=== PATIENT | female | born 1955 | race Two or more races ===

== ENCOUNTER 2019-05-09 19:44 | Inpatient (IN) | payer OTHER ==
[2019-05-09] MEDS ORDERED: Sodium Chloride 0.9% 1,000 ML IV ONE (20:18)
[2019-05-09] MEDS ORDERED: fentaNYL 100 MCG/2 ML SDV IVPUSH ONE ×2 (20:18→21:25)
--- NOTE | 2019-05-09 21:03 | EDM.PDOC ---
ED HPI GENERAL MEDICAL PROBLEM - General Chief Complaint: Skin Complaint Stated Complaint: PT HAS LUMPS ON BACK AND BACK PAIN Time Seen by Provider: 05/09/19 20:03 Source of Information: Reports: Patient History Limitations: Reports: No Limitations - History of Present Illness INITIAL COMMENTS - FREE TEXT/NARRATIVE: HISTORY AND PHYSICAL: History of present illness: Resents with her daughter. The patient and her daughter states that about a week and half ago she went to see her primary provider for a diabetic check and mentioned to him that she had a small lump on her back. It was reddened and firm and just under her bra line. At that time they said there was nothing to do for it but told her to watch it. There was a miscommunication amongst the patient's 3 daughters and none of them really watched the lump. Now today the daughter that had gone with her to her doctor's appointment came home and found that the lump has become a giant mass on her mid back. The mass is red, are and very painful. They had put some kind of a pain patch over part of it and when they pulled that off there was a rash states they thought was a reaction to the adhesive on the patch. She has been having hot and cold flashes and has not felt well at all today. She is a diabetic. Review of systems: As per history of present illness and below otherwise all systems reviewed and negative. Past medical history: As per history of present illness and as reviewed below otherwise noncontributory. Surgical history: As per history of present illness and as reviewed below otherwise noncontributory. Social history: No reported history of drug or alcohol abuse. Family history: As per history of present illness and as reviewed below otherwise noncontributory. Physical exam: HEENT: Atraumatic, normocephalic, pupils reactive, negative for conjunctival pallor or scleral icterus, mucous membranes moist, throat clear, neck supple, nontender, trachea midline. Lungs: Clear to auscultation, breath sounds equal bilaterally, chest nontender. Heart: S1S2, regular, negative for clicks, rubs, or JVD. Abdomen: Soft, nondistended, nontender. Negative for masses or hepatosplenomegaly. Negative for costovertebral tenderness. Pelvis: Stable nontender. Genitourinary: Deferred. Rectal: Deferred. Extremities: Atraumatic, negative for cords or calf pain. Neurovascular unremarkable. Neuro: Awake, alert, oriented. Cranial nerves II through XII unremarkable. Cerebellum unremarkable. Motor and sensory unremarkable throughout. Exam nonfocal. Diagnostics: [] Therapeutics: [] Impression: [] Plan: [] Definitive disposition and diagnosis as appropriate pending reevaluation and review of above. back Pain Score (Numeric/FACES): 10 - Related Data Allergies Allergy/AdvReac Type Severity Reaction Status Date / Time Fish Containing Products Allergy Anaphylactic Verified 05/09/19 19:55 Shock latex Allergy Rash Verified 05/09/19 19:55 Penicillins Allergy Rash Verified 05/09/19 19:55 Home Meds: Home Meds Insulin Aspart [Novolog] 20 unit SQ QAM 04/24/18 [History] Betamethasone Dipropionate 0.05 mg TOP BID PRN 05/09/19 [History] Cyclobenzaprine [Flexeril] 10 mg PO BEDTIME PRN 05/09/19 [History] Insulin Aspart [NovoLOG] 20 units SUBCUT BEDTIME PRN 05/09/19 [History] Lisinopril 5 mg PO DAILY 05/09/19 [History] Nystatin 15 mg TOP TID 05/09/19 [History] traMADol [Ultram] 50 mg PO TID 05/09/19 [History] Past Medical History Cardiovascular History: Reports: Hypertension Respiratory History: Reports: Asthma Genitourinary History: Reports: None 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: Musculoskeletal History: Reports: Arthritis Endocrine/Metabolic History: Reports: Diabetes, Type II Dermatologic History: Reports: Other (See Below) Other Dermatologic History: lump on the back - Infectious Disease History Infectious Disease History: Reports: Chicken Pox - Past Surgical History Cardiovascular Surgical History: Reports: None Respiratory Surgical History: Reports: None Female Surgical History: Reports: Section Endocrine Surgical History: Reports: None Musculoskeletal Surgical History: Reports: None Dermatological Surgical History: Reports: None Social & Family History - Family History Family Medical History: Noncontributory - Tobacco Use Smoking Status *Q: Never Smoker Second Hand Smoke Exposure: No - Caffeine Use Caffeine Use: Reports: None - Recreational Drug Use Recreational Drug Use: No ED ROS GENERAL - Review of Systems Review Of Systems: ROS reveals no pertinent complaints other than HPI. ED EXAM, SKIN/RASH Exam: See Below Exam Limited By: No Limitations General Appearance: Alert, Moderate Distress (Due to pain and inability to sit) Ears: Normal External Exam Nose: Normal Inspection Throat/Mouth: Normal Inspection Head: Atraumatic, Normocephalic Neck: Normal Inspection Respiratory/Chest: No Respiratory Distress, Lungs Clear, Normal Breath Sounds Cardiovascular: Normal Peripheral Pulses, Regular Rate, Rhythm, No Murmur GI/Abdominal: Soft, Non-Tender, No Distention Back Exam: Paraspinal Tenderness Neurological: Alert, Oriented Skin: Warm, Dry, Intact, Normal Color, Other (Under the bra band across the mid back aprox 25 x 10cm firm, erythematous, tender mass with a dry macular rash over the right side that is weeping serosanguinous in some spots. No fluctuance ) Course - Vital Signs Last Recorded V/S: Last Vital Signs Temp 36.4 C 05/09/19 22:00 Pulse 85 05/09/19 22:00 Resp 18 05/09/19 22:00 BP 121/47 L 05/09/19 22:00 Pulse Ox 96 05/09/19 22:00 - Orders/Labs/Meds Orders: Active Orders 24 hr Category Date Time Status CULTURE BLOOD [BC] Stat Lab 05/09/19 20:25 Stop Req CULTURE BLOOD [BC] Stat Lab 05/09/19 20:42 Received Blood Culture x2 Reflex Set [OM.PC] Stat Oth 05/09/19 20:43 Ordered Medication Orders Acetaminophen (Tylenol) 650 mg PO Q4H PRN PRN Reason: Pain Sodium Chloride (Normal Saline) 1,000 mls @ 100 mls/hr IV ASDIRECTED [facility] Last Admin: 05/09/19 22:44 Dose: 100 mls/hr Clindamycin Phosphate (Cleocin In D5w) 50 mls @ 100 mls/hr IV Q8H [facility] Insulin Aspart (Novolog) 0 unit SUBCUT TIDAC [facility]; Protocol Oxycodone HCl (Oxycodone) 5 mg PO Q6H PRN PRN Reason: Pain Last Admin: 05/09/19 22:38 Dose: 5 mg Temazepam (Restoril) 15 mg PO BEDTIME PRN PRN Reason: Sleep Labs: Laboratory Tests 05/09/19 05/09/19 05/09/19 Range/Units 20:25 20:25 20:25 WBC 28.32 H (4.0-11.0) K/uL RBC 4.69 (4.30-5.90) M/uL Hgb 12.9 (12.0-16.0) g/dL Hct 38.8 (36.0-46.0) % MCV 82.7 (80.0-98.0) fL MCH 27.5 (27.0-32.0) pg MCHC 33.2 (31.0-37.0) g/dL RDW Std Deviation 40.4 (28.0-62.0) fl RDW Coeff of Lucho 13 (11.0-15.0) % Plt Count 281 (150-400) K/uL MPV 10.80 (7.40-12.00) fL Add Manual Diff YES Neutrophils % (Manual) 76 (48.0-80.0) % Band Neutrophils % 14 % Lymphocytes % (Manual) 7 L (16.0-40.0) % Monocytes % (Manual) 2 (0.0-15.0) % Eosinophils % (Manual) 1 (0.0-7.0) % Nucleated RBC % 0.0 /100WBC Absolute Seg Neuts 21.5 H (1.4-5.7) Band Neutrophils # 4.0 Lymphocytes # (Manual) 2.0 (0.6-2.4) Monocytes # (Manual) 0.6 (0.0-0.8) Eosinophils # (Manual) 0.3 (0.0-0.7) Nucleated RBCs # 0 K/uL Lactate 1.8 (0.20-2.00) mmol/L Sodium 132 L (136-145) mmol/L Potassium 4.3 (3.5-5.1) mmol/L Chloride 96 L (98-107) mmol/L Carbon Dioxide 24.2 (21.0-32.0) mmol/L BUN 32 H (7.0-18.0) mg/dL Creatinine 1.6 H (0.6-1.0) mg/dL Est Cr Clr Drug Dosing 27.86 mL/min Estimated GFR (MDRD) 32.8 ml/min Glucose 419 H (74-106) mg/dL Calcium 9.8 (8.5-10.1) mg/dL Total Bilirubin 0.8 (0.2-1.0) mg/dL AST 16 (15-37) IU/L ALT 12 L (14-63) IU/L Alkaline Phosphatase 238 H (46-116) U/L Total Protein 7.6 (6.4-8.2) g/dL Albumin 2.2 L (3.4-5.0) g/dL Globulin 5.4 H (2.6-4.0) g/dL Albumin/Globulin Ratio 0.4 L (0.9-1.6) Meds: Medications Generic Name Dose Route Start Last Admin Trade Name Gwyn PRN Reason Stop Dose Admin Acetaminophen 650 mg 05/09/19 22:21 Tylenol PO Q4H PRN Pain Sodium Chloride 1,000 mls @ 100 mls/hr 05/09/19 22:30 05/09/19 22:44 Normal Saline IV 100 mls/hr ASDIRECTED [facility] Administration Clindamycin Phosphate 50 mls @ 100 mls/hr 05/10/19 01:00 Cleocin In D5w IV Q8H [facility] Insulin Aspart 0 unit 05/10/19 07:30 Novolog SUBCUT TIDAC [facility] Protocol Oxycodone HCl 5 mg 05/09/19 22:21 05/09/19 22:38 Oxycodone PO 5 mg Q6H PRN Administration Pain Temazepam 15 mg 05/09/19 22:22 Restoril PO BEDTIME PRN Sleep Discontinued Medications Generic Name Dose Route Start Last Admin Trade Name Gwyn PRN Reason Stop Dose Admin Fentanyl 50 mcg 05/09/19 20:18 05/09/19 20:32 Sublimaze IVPUSH 05/09/19 20:19 50 mcg ONETIME ONE Administration Fentanyl 50 mcg 05/09/19 21:25 05/09/19 21:31 Sublimaze IVPUSH 05/09/19 21:26 50 mcg ONETIME ONE Administration Sodium Chloride 1,000 mls @ 999 mls/hr 05/09/19 20:18 05/09/19 20:32 Normal Saline IV 05/09/19 21:18 999 mls/hr STAT ONE Administration Vancomycin HCl 1.5 gm/ Premix 300 mls @ 300 mls/hr 05/09/19 21:30 IV ASDIRECTED [facility] Vancomycin HCl 1.5 gm/ Sodium 500 mls @ 333.333 mls/hr 05/09/19 22:15 Chloride IV 05/09/19 23:44 ONETIME ONE Vancomycin HCl 1 gm/ 500 mls @ 333.333 mls/hr 05/09/19 22:15 05/09/19 22:50 Vancomycin HCl 500 mg/ Sodium IV 05/09/19 23:44 333.333 mls/hr Chloride ONETIME ONE Administration Clindamycin Phosphate 50 mls @ 100 mls/hr 05/09/19 22:00 05/10/19 00:10 Cleocin In D5w IV Not Given Q8H [facility] Departure - Departure Time of Disposition: 22:00 Disposition: Admitted As Inpatient 68 Clinical Impression: Cellulitis - Discharge Information - My Orders Last 24 Hours: My Active Orders 05/09/19 20:25 CULTURE BLOOD [BC] Stat 05/09/19 20:42 CULTURE BLOOD [BC] Stat 05/09/19 20:43 Blood Culture x2 Reflex Set [OM.PC] Stat - Assessment/Plan Last 24 Hours: My Active Orders 05/09/19 20:25 CULTURE BLOOD [BC] Stat 05/09/19 20:42 CULTURE BLOOD [BC] Stat 05/09/19 20:43 Blood Culture x2 Reflex Set [OM.PC] Stat
[2019-05-09] MEDS ORDERED: Vancomycin 1.5 GM in Sodium Chloride 0.9% 500 ML IV ONE ×2 (21:30→22:15)
[2019-05-09] MEDS ORDERED: VANCOMYCIN/WATER FOR INJ (PEG) 1.5 GM in Premix Bag 1 BAG IV SCH (21:30)
--- NOTE | 2019-05-09 21:42 | CR ---
Indication: Cellulitis Technique: Chest 2 views Comparison: None Findings/Impression: Cardiovascular and mediastinum: Upper limits of normal cardiac size. A mildly ectatic aorta. Lungs and pleural spaces: Lateral left basilar subsegmental atelectasis or scarring. Blunting of the adjacent left costophrenic angle could be related to scarring or volume loss versus small regional fluid, although the posterior costophrenic gutters are clear. Bones and soft tissues: An apparent 1.8 x 1.1 cm ovoid density projecting over the right scapular body, nonspecific and unclear if overlying the patient. Dictated by Augustin Louise MD @ 05/09/2019 9:40:04 PM Dictated by: Augustin Louise MD @ 05/09/2019 21:41:45 (Electronically Signed)
[2019-05-09] MEDS ORDERED: Clindamycin Phosphate in D5W 50 ML IV SCH (22:00)
[2019-05-09] MEDS ORDERED: Vancomycin 1 GM, Vancomycin 500 MG in Sodium Chloride 0.9% 500 ML IV ONE (22:15)
[2019-05-09] MEDS ORDERED: VANCOMYCIN/WATER FOR INJ (PEG) 1.5 GM in Premix Bag 1 BAG IV ONE (22:15)
[2019-05-09] MEDS ORDERED: Temazepam 15 MG Cap PO PRN (22:22)
[2019-05-09] MEDS: oxyCODONE 5 MG Tab PO PRN (22:38)
[2019-05-09] MEDS: Sodium Chloride 0.9% 1,000 ML IV SCH (22:44)
[2019-05-10] MEDS: Clindamycin Phosphate in D5W 50 ML IV SCH ×3 (01:06→17:38)
[2019-05-10] MEDS: oxyCODONE 5 MG Tab PO PRN ×2 (06:10→20:11)
[2019-05-10] MEDS ORDERED: Insulin Aspart 100 Units/ML 3 ML Pen SUBCUT ONE (06:47)
[2019-05-10] MEDS ORDERED: BETAMETHASONE DIPROPIONATE TOP PRN (06:50)
[2019-05-10] MEDS ORDERED: Morphine 2 MG/ML Syringe IVPUSH PRN (06:50)
[2019-05-10] MEDS ORDERED: Cyclobenzaprine 10 MG Tab PO PRN (06:50)
[2019-05-10] MEDS ORDERED: Heparin Sodium 5,000 Units/ML Vial SUBCUT SCH (07:00)
[2019-05-10] MEDS: Insulin Aspart 100 Units/ML 3 ML Pen SUBCUT SCH ×3 (07:14→18:01)
[2019-05-10] MEDS: Linezolid 600 MG in Premix Bag 1 BAG IV SCH ×2 (08:19→19:57)
[2019-05-10 08:28] LABS: HEMOGLOBIN A1C 12.5 % (4.5-6.2)
--- NOTE | 2019-05-10 09:05 | PCM.PREANE ---
Preanesthetic Assessment - Anesthesia/Transfusion/Family Hx Anesthesia History: Prior Anesthesia Without Reaction (c section under neuraxiaql anesthesia x 5, no hx of GA) Family History of Anesthesia Reaction: No Transfusion History: Prior Transfusion Without Reaction - Review of Systems Pulmonary: No Symptoms Cardiovascular: No Symptoms Gastrointestinal: No Symptoms Neurological: No Symptoms - Physical Assessment Vital Signs: Last Vital Signs Temp 98.5 F 05/10/19 08:00 Pulse 91 05/10/19 08:00 Resp 18 05/10/19 08:00 BP 101/68 05/10/19 08:00 Pulse Ox 95 05/10/19 08:00 Height: 5 ft 1 in Weight: 87.18 kg ASA Class: 4 Mental Status: Alert & Oriented x3 Airway Class: Mallampati = 2 Dentition: Reports: Bridge (maxillary central) ROM/Head Extension: Full Lungs: Clear to Auscultation, Normal Respiratory Effort Cardiovascular: Regular Rate, Regular Rhythm - Lab Values: Laboratory Last Values WBC 23.22 K/uL (4.0-11.0) H 05/10/19 05:48 RBC 4.13 M/uL (4.30-5.90) L 05/10/19 05:48 Hgb 11.3 g/dL (12.0-16.0) L 05/10/19 05:48 Hct 34.4 % (36.0-46.0) L 05/10/19 05:48 MCV 83.3 fL (80.0-98.0) 05/10/19 05:48 MCH 27.4 pg (27.0-32.0) 05/10/19 05:48 MCHC 32.8 g/dL (31.0-37.0) 05/10/19 05:48 RDW Std Deviation 41.2 fl (28.0-62.0) 05/10/19 05:48 RDW Coeff of Lucho 14 % (11.0-15.0) 05/10/19 05:48 Plt Count 255 K/uL (150-400) 05/10/19 05:48 MPV 10.70 fL (7.40-12.00) 05/10/19 05:48 Add Manual Diff YES 05/10/19 05:48 Neutrophils % (Manual) 78 % (48.0-80.0) 05/10/19 05:48 Band Neutrophils % 9 % 05/10/19 05:48 Lymphocytes % (Manual) 7 % (16.0-40.0) L 05/10/19 05:48 Monocytes % (Manual) 5 % (0.0-15.0) 05/10/19 05:48 Eosinophils % (Manual) 1 % (0.0-7.0) 05/10/19 05:48 Nucleated RBC % 0.0 /100WBC 05/10/19 05:48 Absolute Seg Neuts 18.1 (1.4-5.7) H 05/10/19 05:48 Band Neutrophils # 2.1 05/10/19 05:48 Lymphocytes # (Manual) 1.6 (0.6-2.4) 05/10/19 05:48 Monocytes # (Manual) 1.2 (0.0-0.8) H 05/10/19 05:48 Eosinophils # (Manual) 0.2 (0.0-0.7) 05/10/19 05:48 Nucleated RBCs # 0 K/uL 05/10/19 05:48 Lactate 1.8 mmol/L (0.20-2.00) 05/09/19 20:25 Sodium 133 mmol/L (136-145) L 05/10/19 05:48 Potassium 4.3 mmol/L (3.5-5.1) 05/10/19 05:48 Chloride 100 mmol/L (98-107) 05/10/19 05:48 Carbon Dioxide 23.7 mmol/L (21.0-32.0) 05/10/19 05:48 BUN 35 mg/dL (7.0-18.0) H 05/10/19 05:48 Creatinine 1.6 mg/dL (0.6-1.0) H 05/10/19 05:48 Est Cr Clr Drug Dosing 27.86 mL/min 05/10/19 05:48 Estimated GFR (MDRD) 32.8 ml/min 05/10/19 05:48 Glucose 422 mg/dL (74-106) H 05/10/19 05:48 POC Glucose 428 mg/dL (60-110) H 05/10/19 06:29 Hemoglobin A1c 12.5 % (4.5-6.2) H 05/10/19 05:48 Calcium 8.9 mg/dL (8.5-10.1) 05/10/19 05:48 Total Bilirubin 0.8 mg/dL (0.2-1.0) 05/09/19 20:25 AST 16 IU/L (15-37) 05/09/19 20:25 ALT 12 IU/L (14-63) L 05/09/19 20:25 Alkaline Phosphatase 238 U/L (46-116) H 05/09/19 20:25 Total Protein 7.6 g/dL (6.4-8.2) 05/09/19 20:25 Albumin 2.2 g/dL (3.4-5.0) L 05/09/19 20:25 Globulin 5.4 g/dL (2.6-4.0) H 05/09/19 20:25 Albumin/Globulin Ratio 0.4 (0.9-1.6) L 05/09/19 20:25 - Allergies Allergies/Adverse Reactions: Allergies Allergy/AdvReac Type Severity Reaction Status Date / Time Fish Containing Products Allergy Anaphylactic Verified 05/10/19 07:28 Shock latex Allergy Rash Verified 05/10/19 07:28 Penicillins Allergy Rash Verified 05/10/19 07:28 - Blood Blood Available: No - Anesthesia Plan Pre-Op Medication Ordered: None - Acknowledgements Anesthesia Type Planned: General Anesthesia Pt an Appropriate Candidate for the Planned Anesthesia: Yes Alternatives and Risks of Anesthesia Discussed w Pt/Guardian: Yes Pt/Guardian Understands and Agrees with Anesthesia Plan: Yes Additional Comments: PMH: htn, hx of CVA with R hemiparesis- now resolved, DM2 on insulin- usually sugars run high- sugar at home prior to coming to ED was in the 500's. Glucose in the 400s all night on the floor. PLAN: needs pre-op control of blood sugar. request hospitalist consult and iv infusion of insulin for more rapid controll of blood sugars. 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: Musculoskeletal History: Reports: Arthritis Neurological History: Reports: None Psychiatric History: Reports: None Endocrine/Metabolic History: Reports: Diabetes, Type II Hematologic History: Reports: None Immunologic History: Reports: None Dermatologic History: Reports: Other (See Below) Other Dermatologic History: lump on the back - Infectious Disease History Infectious Disease History: Reports: Chicken Pox - Past Surgical History Cardiovascular Surgical History: Reports: None Respiratory Surgical History: Reports: None Female Surgical History: Reports: Section Endocrine Surgical History: Reports: None Musculoskeletal Surgical History: Reports: None Dermatological Surgical History: Reports: None - SUBSTANCE USE Smoking Status *Q: Never Smoker Second Hand Smoke Exposure: No Recreational Drug Use History: No - HOME MEDS Home Medications: Home Meds Insulin Aspart [Novolog] 20 unit SQ QAM 04/24/18 [History] Betamethasone Dipropionate 0.05 mg TOP BID PRN 05/09/19 [History] Cyclobenzaprine [Flexeril] 10 mg PO BEDTIME PRN 05/09/19 [History] Insulin Aspart [NovoLOG] 20 units SUBCUT BEDTIME PRN 05/09/19 [History] Lisinopril 5 mg PO DAILY 05/09/19 [History] Nystatin 15 mg TOP TID 05/09/19 [History] traMADol [Ultram] 50 mg PO TID 05/09/19 [History] - CURRENT (IN HOUSE) MEDS Current Meds: Current Medications Acetaminophen (Tylenol) 650 mg PO Q4H PRN PRN Reason: Pain Cyclobenzaprine HCl (Flexeril) 10 mg PO BEDTIME PRN PRN Reason: Spasms Sodium Chloride (Normal Saline) 1,000 mls @ 125 mls/hr IV ASDIRECTED [facility] Last Admin: 05/09/19 22:44 Dose: 100 mls/hr Clindamycin Phosphate (Cleocin In D5w) 50 mls @ 100 mls/hr IV Q8H [facility] Last Admin: 05/10/19 01:06 Dose: 100 mls/hr Linezolid 600 mg/ Premix 300 mls @ 300 mls/hr IV Q12H [facility] Last Admin: 05/10/19 08:19 Dose: 300 mls/hr Insulin Human Regular 100 unit (/ Sodium Chloride) 100 mls @ 8 mls/hr IV TITRATE [facility]; Protocol Insulin Aspart (Novolog) 0 unit SUBCUT TIDAC [facility]; Protocol Last Admin: 05/10/19 07:14 Dose: Not Given Lisinopril (Prinivil) 5 mg PO DAILY [facility] Morphine Sulfate (Morphine) 2 mg IVPUSH Q2H PRN PRN Reason: Pain (severe 7-10) Stop: 05/11/19 06:51 Nystatin (Nystop) 0 gm TOP TID [facility] Ondansetron HCl (Zofran Odt) 4 mg PO Q4H PRN PRN Reason: nausea, able to take PO Oxycodone HCl (Oxycodone) 5 mg PO Q6H PRN PRN Reason: Pain Last Admin: 05/10/19 06:10 Dose: 5 mg (Betamethasone (Dipropionate)) 0 each TOP BID PRN PRN Reason: Rash Temazepam (Restoril) 15 mg PO BEDTIME PRN PRN Reason: Sleep Vancomycin HCl (Pharmacy To Dose - Vancomycin) 1 dose .XX ASDIRECTED [facility] Discontinued Medications Fentanyl (Sublimaze) 50 mcg IVPUSH ONETIME ONE Stop: 05/09/19 20:19 Last Admin: 05/09/19 20:32 Dose: 50 mcg Fentanyl (Sublimaze) 50 mcg IVPUSH ONETIME ONE Stop: 05/09/19 21:26 Last Admin: 05/09/19 21:31 Dose: 50 mcg Heparin Sodium (Porcine) (Heparin Sodium) 5,000 units SUBCUT Q8H [facility] Last Admin: 05/10/19 08:00 Dose: Not Given Sodium Chloride (Normal Saline) 1,000 mls @ 999 mls/hr IV STAT ONE Stop: 05/09/19 21:18 Last Admin: 05/09/19 20:32 Dose: 999 mls/hr Vancomycin HCl 1.5 gm/ Premix 300 mls @ 300 mls/hr IV ASDIRECTED [facility] Vancomycin HCl 1.5 gm/ Sodium (Chloride) 500 mls @ 333.333 mls/hr IV ONETIME ONE Stop: 05/09/19 23:44 Vancomycin HCl 1 gm/Vancomycin HCl 500 mg/ Sodium Chloride 500 mls @ 333.333 mls/hr IV ONETIME ONE Stop: 05/09/19 23:44 Last Admin: 05/09/19 22:50 Dose: 333.333 mls/hr Clindamycin Phosphate (Cleocin In D5w) 50 mls @ 100 mls/hr IV Q8H [facility] Last Admin: 05/10/19 00:10 Dose: Not Given Vancomycin HCl 1.5 gm/ Premix 300 mls @ 200 mls/hr IV Q24H [facility] Insulin Aspart (Novolog) 15 unit SUBCUT ONETIME ONE Stop: 05/10/19 06:48 Last Admin: 05/10/19 07:12 Dose: 15 units
[2019-05-10] MEDS: Sodium Chloride 0.9% 1,000 ML IV SCH ×4 (09:18→19:10)
--- NOTE | 2019-05-10 09:33 | PCM.SN ---
- Free Text/Narrative Note: pt seen, chart reviewed; back abscess, glucose is 420; once glucose more in control, will take pt for i/d of back abscess; [id number]
--- NOTE | 2019-05-10 12:03 | CONS ---
DATE OF CONSULTATION: DATE OF : 1955 PRIMARY CARE PHYSICIAN: JESSIE FORTE REASON FOR CONSULTATION: Consult from Dr. Teo Perez. Concerning question is back abscess. HISTORY OF PRESENT ILLNESS: The patient is a 63-year-old lady. Morbid obesity, BMI of 36, weighing 192 pounds. Seen in emergency room for complaint of back infection. The patient remarked that it is being going on for 2 weeks and started as a small bump and lately it has been draining some infection by self or ruptured. PAST MEDICAL HISTORY: Significant for diabetes, CVA, morbid obesity, and hypertension. PAST SURGICAL HISTORY: x7. HOME MEDICATIONS: Please refer to nursing for details. ALLERGIES: Please refer to nursing for details. FAMILY HISTORY: Noncontributory. REVIEW OF SYSTEMS: Same as history of present illness. PHYSICAL EXAMINATION: GENERAL: Morbidly obese lady lying in bed with difficulty even to turn to side, but managed to do it. SKIN: It looked like on both of the scapula angle on the back has elevation, at least 10 to 12 cm. There is no erythema, but with expressible pus on the right side and some eschar of with elevation. DIAGNOSTIC STUDIES: There is no CAT scan done in the last several days. LABORATORY DATA: Upon consultation, white count is 23, H and H are 11 and 34, platelets are 255. Lactate is 1.8. Sodium is 133, potassium is 4.3, BUN is 35, creatinine is 1.6, glucose 422 at 5 o'clock and 388 at 9 o'clock. A1c is 12.5. Alkaline phosphatase is 238, TBili is 0.8, albumin is 2.2. IMPRESSION: Large back abscess and blood glucose is poorly controlled into the 500 at home and 400 over here. The patient would benefit to have a tiny incision and drainage of the pus at the back, but per Anesthesiology recommendation, glucose to be much better controlled and recommended to start insulin drip and proceed as per plan. Plan has been discussed with the hospital team. ROBERT / ANA /[id number] ALAN
[2019-05-10] MEDS: Lisinopril 5 MG Tab PO SCH (12:06)
[2019-05-10] MEDS ORDERED: fentaNYL 250 MCG/5 ML SDV ONE (12:27)
[2019-05-10] MEDS ORDERED: Midazolam 1 MG/ML 2 ML SDV ONE (12:27)
[2019-05-10] MEDS ORDERED: Sugammadex Sodium 200 MG/2 ML VIAL ONE (13:26)
[2019-05-10] MEDS ORDERED: Bupivacaine 25%/EPINEPHrine/PF 30 ML ONE (13:27)
[2019-05-10] MEDS ORDERED: Ondansetron 4 MG/2 ML SDV ONE (13:30)
--- NOTE | 2019-05-10 14:19 | PCM.OPNOTE ---
- General Post-Op/Procedure Note Date of Surgery/Procedure: 05/10/19 Operative Procedure(s): i/d and bx of Back abscess Findings: large amt of necrotic purulent collected in two cavity around research clerk angle; L more than R, cavity are connected; currently packing; [id number] Pre Op Diagnosis: back abscess Post-Op Diagnosis: Same Anesthesia Technique: General ET Tube Primary Surgeon: Mauro Salmon Pathology: sent Complications: None Condition: Fair Free Text/Narrative:: Intake & Output 05/09/19 05/10/19 05/10/19 22:59 06:59 14:59 Intake Total 1050 300 Output Total 100 Balance 950 300
[2019-05-10] MEDS ORDERED: Diltiazem 25 MG/5 ML SDV IVPUSH ONE ×2 (14:33→14:46)
--- NOTE | 2019-05-10 14:35 | PCM.SN ---
- Free Text/Narrative Note: large amt of purulent abscess under B scapular angle; currently wound packed; wound would need to be packing drsg change everyday, using NS, kurlex 4 in, only one piece drsg per wound. continue iv abx as you are doing; will follow pt w you
--- NOTE | 2019-05-10 15:26 | PCM.POSTAN ---
POST ANESTHESIA ASSESSMENT - MENTAL STATUS Mental Status: Confused - VITAL SIGNS Vital Signs: Last Vital Signs Temp 98.6 F 05/10/19 14:07 Pulse 85 05/10/19 15:17 Resp 24 H 05/10/19 15:17 BP 87/46 L 05/10/19 15:17 Pulse Ox 97 05/10/19 15:17 - RESPIRATORY Respiratory Status: O2 Saturation Stable, Supplemental Oxygen, Elevated Respiratory Rate - CARDIOVASCULAR CV Status: Other (afib) - GASTROINTESTINAL GI Status: No Symptoms - POST OP HYDRATION Hydration Status: Adequate & Stable, Other (little urine out 100 ml. with her hyperglycemia I would expect more. Prob relative hypovolemia) - OBSERVATIONS Free Text/Narrative:: flipped from NSR into afib with rate of 130 shortly after arrival in PACU. Little response to cardizem 20+ 20 mg. now pseudoregularization without P waves. rate from 80 to 130. Had one to 2 episodes of asystole lasting 3-4 seconds. Trans cut pacing wires on. labs sent: lytes, calcium. mgnesium, abg, t3,t4,tsh,and troponin. Have ICU bed ready. Hospitalist has seen pt in PACU prior to transport to ICU.
--- NOTE | 2019-05-10 16:30 | OR ---
SURGEON: Mauro Salmon MD DATE OF PROCEDURE: 05/10/2019 PREOPERATIVE DIAGNOSIS: Back abscess. POSTOPERATIVE DIAGNOSIS: Back abscess. PROCEDURE PERFORMED: Incision and drainage and exploration. PRIMARY SURGEON: Mauro Salmon MD. COMPLICATIONS: None. FINDINGS: A large cavity of abscess contained on bilateral side of the back. DESCRIPTION OF PROCEDURE: The patient was taken to the operating room, placed in a supine position. Upon induction of general endotracheal anesthesia, the patient was repositioned in the prone position. The back was prepped and draped in a sterile fashion, and after assessment of appropriate landmark, there was an elevation with erythema on the left scapula angle and there was a skin infection with draining pus on the right scapula and both sides erythematous. The left side probably measured about 15 x 10. The right side measured about 12 x 10. The left side had skin intact. The right side with some skin infection and draining pus. Local anesthetic was infiltrated with lidocaine 1% and epi, and after that using a skin scalpel, a transverse incision was made on the right side and which resulted in a rushed out of necrosis and foul smelling . Using the surgeon's finger to break up the loculation, a continued draining pus from the hole that is tunneled to the left side of the elevation. In spite of that, using a skin knife, the left side was also made an incision and found out more necrosis and pus under the left incision and again the 2 cavities were tunneled and connected. This was then followed with copious irrigation until no more purulent material and also followed with a blunt dissection using surgeon's fingers on the left cavity. At the end, the left cavity measured a skin incision with 9 for length and 3 cm for depth and the tunnel is like a tunica-biloxi, 14 x 14 cm, that is the left one. Then the right one, the skin incision was 8 cm and the depth was 2 cm and the tunnel itself is 12 x 8 cm. The wound was carefully packed and with Kerlix, only 1 piece of packing per cavity. Otherwise, dressing would lose in the cavity and good hemostasis achieved by just compression. There is not much of a bleeding and the skin infection also biopsied and sent for pathology. When it was finished, it was bone dry, and I believe appropriate dressing, the patient was then repositioned in the supine position and transferred to recovery room in hemodynamically stable condition. The patient tolerated the procedure well. There were no intraoperative complications, and Dr. Salmon was present through the whole procedure. ROBERT / ANA /[id number] MTDD
--- NOTE | 2019-05-10 17:08 | PCM.SN ---
- Free Text/Narrative Note: Physician was called and evaluated at approximately 1515,the patient in PACU post surgery due to mental confusion as well as rapid heart rate and atrial fibrillation. The patient had been given Cardizem. The patient was in A. fib with RVR with a heart rate of around 120-130 on monitor. The patient had improved significantly and a few moments during evaluation. The patient was transferred to the ICU for further monitoring for the evening. Likely secondary to the patient's large abscess and postsurgical state. The patient also had been ordered to have 2 L of normal saline as a bolus as it had been reported that she had not having significant urine output for the morning. The patient will be reevaluated in the morning.
--- NOTE | 2019-05-10 17:24 | PN ---
[facility] Physician - Brief Progress [id number]/14/2019 17:09[facility] Gabriel Contreras, [place] - MWN (ALMN) - MWN GALINA OLSONDate of Service 05/10/2019 17:09HPI/Events o f Note eICU Admission NoteGalina Zuniga is a 63 year old male admitted to the intensive care unit for management of Past medical history significant for diabetes, essential hypertension and a reported di agnosis of asthma. She was admitted today after presenting to the emergency department for celluliti s and abscess of the back. Laboratory studies on arrival revealed patient to have leukocytosis, and unremarkable blood gas, elevated creatinine, hyperglycemia, with a mildly elevated anion gap. Ketone s studies were noted to be negative.She was taken to the OR for drainage, and in the PACU she was not ed to have an episode of atrial fibrillation with RVR. Per anesthesia note Cardizem did not have sig nificant effect, and patient was noted to have a few episodes of asystole lasting 3 to 4 seconds. Sh lukas was noted to have significant hyperglycemia, and as such was admitted to the intensive care unit fo r insulin drip following procedure.On evaluation by camera, patient is sleeping. She is saturating w ell on nasal cannula per vitals monitor, and otherwise does not demonstrate acute hemodynamic instabi lity.eICU Recommendations:Atrial fibrillationTachy-vale arrhythmia, potentially related to metabolic abnormality given hypokalemiaxContinue with telemetry monitoringxCan consider cardiology consult for comment on etiology of atrial fibrillationxGiven recent surgery, will defer to the surgical service regarding initiation of anticoagulation (CHADSVasc score of 3)xConsider echocardiogram to rule out un derlying valvular abnormalityxRecommend aggressive electrolyte replacement: Recommend maintaining pot assium greater than 4 and magnesium greater than 2Cellulitis and abscess of the back:xDefer antibioti cs to surgical and primary service, however we are available to assist if desiredDiabetes mellitus wi th hyperglycemiaxWe will defer management of glucose to primary service. We are available to assist if desiredElevated anion gap, negative ketone studiesxConsider lactic acid to complete work-upAcute k idney injury, suspect secondary to prerenal azotemiaxUrine sodium, creatinine, urea for calculation o f FENa and FEUrxStrict I's and O'sElevated alkaline phosphatase, of uncertain significancexCan consid er hepatobiliary imaging such as liver ultrasoundThank you for allowing us to participate in care of this patientInterventions Major-Arrhythmia - evaluation and management, Hyperglycemia - active titrat ion of insulin therapy, Infection - evaluation and management
[2019-05-10] MEDS: Nystatin Topical Powder 15 GM Bottle TOP SCH ×2 (17:33→21:06)
[2019-05-10] MEDS ORDERED: VANCOMYCIN/WATER FOR INJ (PEG) 1.5 GM in Premix Bag 1 BAG IV SCH (21:00)
[2019-05-10] MEDS ORDERED: Sodium Chloride 0.9% 1,000 ML IV ONE (23:04)
--- NOTE | 2019-05-10 23:18 | PN ---
[facility] Physician - Brief Progress [id number]/14/2019 23:12[facility] Gabriel berg, LANCE - NADINE [facility] - GALINA DENISEDate of Service 05/10/2019 23:12HPI/Events o f Note Hypotension SBP less than 90UO low plan:NS 1 L onceInterventions Major-Hypotension - evaluati on and management, Infection - evaluation and management
[2019-05-11] MEDS: Clindamycin Phosphate in D5W 50 ML IV SCH ×3 (00:12→16:33)
[2019-05-11] MEDS: oxyCODONE 5 MG Tab PO PRN ×3 (00:30→23:32)
--- NOTE | 2019-05-11 01:19 | PN ---
[facility] Physician - Brief Progress [id number]/15/2019 00:38[facility] [place], [place] - [place] ([place]) - GALINA DENISEDate of Service 05/11/2019 00:38HPI/Events o f Note complains of pain over the surgical siteon oxycodone 5 mg every6 hours prnplan:increased oxyco done every 4 hours prn for mild painavoid morphine nowInterventions Intermediate-Pain - evaluation an d management
[2019-05-11] MEDS: Ondansetron 4 MG Tab.DIS PO PRN (03:17)
[2019-05-11] MEDS ORDERED: Insulin Regular, Human 100 Units/ML 10 ML Vial SUBCUT ONE (03:25)
--- NOTE | 2019-05-11 03:29 | PN ---
[facility] Physician - Brief Progress [id number]/15/2019 03:26[facility] [place], [place] - NADINE ([place]) - GALINA DENISEDate of Service 05/11/2019 03:26HPI/Events o f Note BS 268mg/dlPLAN:Novolog R 5 units SQ onceInterventions Major-Hyperglycemia - active titration of insulin therapy
[2019-05-11] MEDS: Sodium Chloride 0.9% 1,000 ML IV SCH ×3 (05:23→23:33)
[2019-05-11] MEDS: Nystatin Topical Powder 15 GM Bottle TOP SCH ×4 (06:43→21:56)
--- NOTE | 2019-05-11 07:01 | PCM.PN ---
- General Info Date of Service: 05/11/19 Admission Dx/Problem (Free Text): Admission Diagnosis/Problem Admission Diagnosis/Problem Cellulitis, back, poorly controlled diabetes mellitus type 2 Subjective Update: The patient is a 63-year-old lady who had been admitted to acute hospitalization on May 10, 2019 secondary to large area of cellulitis on her back. Yesterday, after consultation with the surgeon the patient went to surgery with I&D and packing of her cellulitis. The patient post recovery was noted to have what appeared to be atrial fibrillation with RVR and heart rate in the 130s. The patient had been started on Cardizem in recovery. The patient' s heart rate had improved. The patient was also noted in normal sinus rhythm. Because of this postrecovery episode the patient was placed in intensive care unit for monitoring with regards to her blood sugars as well as her mental status. The patient had also been placed back on her subcutaneous insulin. Today the patient is awake and alert. The patient is having some pain in her back at surgery site. She does feel better. The patient has been tolerating her diabetic diet. Functional Status: Reports: Pain Controlled - Review of Systems General: Reports: No Symptoms HEENT: Reports: No Symptoms Pulmonary: Reports: No Symptoms Cardiovascular: Reports: No Symptoms Gastrointestinal: Reports: No Symptoms Genitourinary: Reports: No Symptoms Musculoskeletal: Reports: Back Pain Skin: Reports: Rash Neurological: Reports: No Symptoms Psychiatric: Reports: No Symptoms - Patient Data Vitals - Most Recent: Last Vital Signs Temp 36.7 C 05/11/19 06:00 Pulse 64 05/10/19 19:15 Resp 15 05/11/19 06:00 BP 102/66 05/11/19 06:00 Pulse Ox 97 05/11/19 06:00 Weight - Most Recent: 93.9 kg I&O - Last 24 Hours: Intake & Output 05/10/19 05/11/19 05/11/19 22:59 06:59 14:59 Intake Total 886 2000 Output Total 150 Balance 736 2000 Lab Results Last 24 Hours: Laboratory Results - last 24 hr 05/10/19 05/10/19 05/10/19 Range/Units 05:48 09:15 10:03 WBC (4.0-11.0) K/uL RBC (4.30-5.90) M/uL Hgb (12.0-16.0) g/dL Hct (36.0-46.0) % MCV (80.0-98.0) fL MCH (27.0-32.0) pg MCHC (31.0-37.0) g/dL RDW Std Deviation (28.0-62.0) fl RDW Coeff of Lucho (11.0-15.0) % Plt Count (150-400) K/uL MPV (7.40-12.00) fL Neut % (Auto) (48.0-80.0) % Lymph % (Auto) (16.0-40.0) % Greenlee % (Auto) (0.0-15.0) % Eos % (Auto) (0.0-7.0) % Baso % (Auto) (0.0-1.5) % Neut # (Auto) (1.4-5.7) K/uL Lymph # (Auto) (0.6-2.4) K/uL Greenlee # (Auto) (0.0-0.8) K/uL Eos # (Auto) (0.0-0.7) K/uL Baso # (Auto) (0.0-0.1) K/uL Nucleated RBC % /100WBC Nucleated RBCs # K/uL ABG pH (7.35-7.45) ABG pCO2 (35-45) mmHG ABG pO2 (75-100) mmHG ABG HCO3 (22-26) mEq/L ABG Total CO2 ABG Base Excess (-2.0-2.0) Sodium (136-145) mmol/L Potassium (3.5-5.1) mmol/L Chloride (98-107) mmol/L Carbon Dioxide (21.0-32.0) mmol/L Anion Gap BUN (7.0-18.0) mg/dL Creatinine (0.6-1.0) mg/dL Est Cr Clr Drug Dosing mL/min Estimated GFR (MDRD) ml/min Glucose (74-106) mg/dL POC Glucose 388 H 409 H (60-110) mg/dL Hemoglobin A1c 12.5 H (4.5-6.2) % Calcium (8.5-10.1) mg/dL Magnesium (1.8-2.4) mg/dL Total Bilirubin (0.2-1.0) mg/dL AST (15-37) IU/L ALT (14-63) IU/L Alkaline Phosphatase (46-116) U/L Troponin I (0.000-0.056) ng/mL Total Protein (6.4-8.2) g/dL Albumin (3.4-5.0) g/dL Globulin (2.6-4.0) g/dL Albumin/Globulin Ratio (0.9-1.6) Free T4 (0.76-1.46) ng/dL Free T3 (2.18-3.98) pg/mL TSH 3rd Generation (0.36-3.74) uIU/mL Urine Ketones Ketones (NEG) 05/10/19 05/10/19 05/10/19 Range/Units 10:30 10:35 11:06 WBC (4.0-11.0) K/uL RBC (4.30-5.90) M/uL Hgb (12.0-16.0) g/dL Hct (36.0-46.0) % MCV (80.0-98.0) fL MCH (27.0-32.0) pg MCHC (31.0-37.0) g/dL RDW Std Deviation (28.0-62.0) fl RDW Coeff of Lucho (11.0-15.0) % Plt Count (150-400) K/uL MPV (7.40-12.00) fL Neut % (Auto) (48.0-80.0) % Lymph % (Auto) (16.0-40.0) % Greenlee % (Auto) (0.0-15.0) % Eos % (Auto) (0.0-7.0) % Baso % (Auto) (0.0-1.5) % Neut # (Auto) (1.4-5.7) K/uL Lymph # (Auto) (0.6-2.4) K/uL Greenlee # (Auto) (0.0-0.8) K/uL Eos # (Auto) (0.0-0.7) K/uL Baso # (Auto) (0.0-0.1) K/uL Nucleated RBC % /100WBC Nucleated RBCs # K/uL ABG pH (7.35-7.45) ABG pCO2 (35-45) mmHG ABG pO2 (75-100) mmHG ABG HCO3 (22-26) mEq/L ABG Total CO2 ABG Base Excess (-2.0-2.0) Sodium (136-145) mmol/L Potassium (3.5-5.1) mmol/L Chloride (98-107) mmol/L Carbon Dioxide (21.0-32.0) mmol/L Anion Gap BUN (7.0-18.0) mg/dL Creatinine (0.6-1.0) mg/dL Est Cr Clr Drug Dosing mL/min Estimated GFR (MDRD) ml/min Glucose (74-106) mg/dL POC Glucose 390 H (60-110) mg/dL Hemoglobin A1c (4.5-6.2) % Calcium (8.5-10.1) mg/dL Magnesium (1.8-2.4) mg/dL Total Bilirubin (0.2-1.0) mg/dL AST (15-37) IU/L ALT (14-63) IU/L Alkaline Phosphatase (46-116) U/L Troponin I (0.000-0.056) ng/mL Total Protein (6.4-8.2) g/dL Albumin (3.4-5.0) g/dL Globulin (2.6-4.0) g/dL Albumin/Globulin Ratio (0.9-1.6) Free T4 (0.76-1.46) ng/dL Free T3 (2.18-3.98) pg/mL TSH 3rd Generation (0.36-3.74) uIU/mL Urine Ketones NEGATIVE Ketones NEGATIVE (NEG) 05/10/19 05/10/19 05/10/19 Range/Units 11:55 13:12 14:14 WBC (4.0-11.0) K/uL RBC (4.30-5.90) M/uL Hgb (12.0-16.0) g/dL Hct (36.0-46.0) % MCV (80.0-98.0) fL MCH (27.0-32.0) pg MCHC (31.0-37.0) g/dL RDW Std Deviation (28.0-62.0) fl RDW Coeff of Lucho (11.0-15.0) % Plt Count (150-400) K/uL MPV (7.40-12.00) fL Neut % (Auto) (48.0-80.0) % Lymph % (Auto) (16.0-40.0) % Greenlee % (Auto) (0.0-15.0) % Eos % (Auto) (0.0-7.0) % Baso % (Auto) (0.0-1.5) % Neut # (Auto) (1.4-5.7) K/uL Lymph # (Auto) (0.6-2.4) K/uL Greenlee # (Auto) (0.0-0.8) K/uL Eos # (Auto) (0.0-0.7) K/uL Baso # (Auto) (0.0-0.1) K/uL Nucleated RBC % /100WBC Nucleated RBCs # K/uL ABG pH (7.35-7.45) ABG pCO2 (35-45) mmHG ABG pO2 (75-100) mmHG ABG HCO3 (22-26) mEq/L ABG Total CO2 ABG Base Excess (-2.0-2.0) Sodium (136-145) mmol/L Potassium (3.5-5.1) mmol/L Chloride (98-107) mmol/L Carbon Dioxide (21.0-32.0) mmol/L Anion Gap BUN (7.0-18.0) mg/dL Creatinine (0.6-1.0) mg/dL Est Cr Clr Drug Dosing mL/min Estimated GFR (MDRD) ml/min Glucose (74-106) mg/dL POC Glucose 306 H 299 H 294 H (60-110) mg/dL Hemoglobin A1c (4.5-6.2) % Calcium (8.5-10.1) mg/dL Magnesium (1.8-2.4) mg/dL Total Bilirubin (0.2-1.0) mg/dL AST (15-37) IU/L ALT (14-63) IU/L Alkaline Phosphatase (46-116) U/L Troponin I (0.000-0.056) ng/mL Total Protein (6.4-8.2) g/dL Albumin (3.4-5.0) g/dL Globulin (2.6-4.0) g/dL Albumin/Globulin Ratio (0.9-1.6) Free T4 (0.76-1.46) ng/dL Free T3 (2.18-3.98) pg/mL TSH 3rd Generation (0.36-3.74) uIU/mL Urine Ketones Ketones (NEG) 05/10/19 05/10/19 05/10/19 Range/Units 15:05 15:05 15:17 WBC (4.0-11.0) K/uL RBC (4.30-5.90) M/uL Hgb (12.0-16.0) g/dL Hct (36.0-46.0) % MCV (80.0-98.0) fL MCH (27.0-32.0) pg MCHC (31.0-37.0) g/dL RDW Std Deviation (28.0-62.0) fl RDW Coeff of Lucho (11.0-15.0) % Plt Count (150-400) K/uL MPV (7.40-12.00) fL Neut % (Auto) (48.0-80.0) % Lymph % (Auto) (16.0-40.0) % Greenlee % (Auto) (0.0-15.0) % Eos % (Auto) (0.0-7.0) % Baso % (Auto) (0.0-1.5) % Neut # (Auto) (1.4-5.7) K/uL Lymph # (Auto) (0.6-2.4) K/uL Greenlee # (Auto) (0.0-0.8) K/uL Eos # (Auto) (0.0-0.7) K/uL Baso # (Auto) (0.0-0.1) K/uL Nucleated RBC % /100WBC Nucleated RBCs # K/uL ABG pH (7.35-7.45) ABG pCO2 (35-45) mmHG ABG pO2 (75-100) mmHG ABG HCO3 (22-26) mEq/L ABG Total CO2 ABG Base Excess (-2.0-2.0) Sodium 136 (136-145) mmol/L Potassium 3.3 L (3.5-5.1) mmol/L Chloride 102 (98-107) mmol/L Carbon Dioxide 22.9 (21.0-32.0) mmol/L Anion Gap 14.4 BUN (7.0-18.0) mg/dL Creatinine (0.6-1.0) mg/dL Est Cr Clr Drug Dosing mL/min Estimated GFR (MDRD) ml/min Glucose (74-106) mg/dL POC Glucose 229 H (60-110) mg/dL Hemoglobin A1c (4.5-6.2) % Calcium 8.9 (8.5-10.1) mg/dL Magnesium 1.9 (1.8-2.4) mg/dL Total Bilirubin (0.2-1.0) mg/dL AST (15-37) IU/L ALT (14-63) IU/L Alkaline Phosphatase (46-116) U/L Troponin I < 0.050 (0.000-0.056) ng/mL Total Protein (6.4-8.2) g/dL Albumin (3.4-5.0) g/dL Globulin (2.6-4.0) g/dL Albumin/Globulin Ratio (0.9-1.6) Free T4 1.94 H (0.76-1.46) ng/dL Free T3 1.56 L (2.18-3.98) pg/mL TSH 3rd Generation 1.23 (0.36-3.74) uIU/mL Urine Ketones Ketones (NEG) 05/10/19 05/10/19 05/10/19 Range/Units 15:54 16:20 17:21 WBC (4.0-11.0) K/uL RBC (4.30-5.90) M/uL Hgb (12.0-16.0) g/dL Hct (36.0-46.0) % MCV (80.0-98.0) fL MCH (27.0-32.0) pg MCHC (31.0-37.0) g/dL RDW Std Deviation (28.0-62.0) fl RDW Coeff of Lucho (11.0-15.0) % Plt Count (150-400) K/uL MPV (7.40-12.00) fL Neut % (Auto) (48.0-80.0) % Lymph % (Auto) (16.0-40.0) % Greenlee % (Auto) (0.0-15.0) % Eos % (Auto) (0.0-7.0) % Baso % (Auto) (0.0-1.5) % Neut # (Auto) (1.4-5.7) K/uL Lymph # (Auto) (0.6-2.4) K/uL Greenlee # (Auto) (0.0-0.8) K/uL Eos # (Auto) (0.0-0.7) K/uL Baso # (Auto) (0.0-0.1) K/uL Nucleated RBC % /100WBC Nucleated RBCs # K/uL ABG pH 7.399 (7.35-7.45) ABG pCO2 35 (35-45) mmHG ABG pO2 75 (75-100) mmHG ABG HCO3 22 (22-26) mEq/L ABG Total CO2 19.8 ABG Base Excess -2.7 L (-2.0-2.0) Sodium (136-145) mmol/L Potassium (3.5-5.1) mmol/L Chloride (98-107) mmol/L Carbon Dioxide (21.0-32.0) mmol/L Anion Gap BUN (7.0-18.0) mg/dL Creatinine (0.6-1.0) mg/dL Est Cr Clr Drug Dosing mL/min Estimated GFR (MDRD) ml/min Glucose (74-106) mg/dL POC Glucose 199 H 137 H (60-110) mg/dL Hemoglobin A1c (4.5-6.2) % Calcium (8.5-10.1) mg/dL Magnesium (1.8-2.4) mg/dL Total Bilirubin (0.2-1.0) mg/dL AST (15-37) IU/L ALT (14-63) IU/L Alkaline Phosphatase (46-116) U/L Troponin I (0.000-0.056) ng/mL Total Protein (6.4-8.2) g/dL Albumin (3.4-5.0) g/dL Globulin (2.6-4.0) g/dL Albumin/Globulin Ratio (0.9-1.6) Free T4 (0.76-1.46) ng/dL Free T3 (2.18-3.98) pg/mL TSH 3rd Generation (0.36-3.74) uIU/mL Urine Ketones Ketones (NEG) 05/10/19 05/10/19 05/10/19 Range/Units 17:59 19:14 21:29 WBC (4.0-11.0) K/uL RBC (4.30-5.90) M/uL Hgb (12.0-16.0) g/dL Hct (36.0-46.0) % MCV (80.0-98.0) fL MCH (27.0-32.0) pg MCHC (31.0-37.0) g/dL RDW Std Deviation (28.0-62.0) fl RDW Coeff of Lucho (11.0-15.0) % Plt Count (150-400) K/uL MPV (7.40-12.00) fL Neut % (Auto) (48.0-80.0) % Lymph % (Auto) (16.0-40.0) % Greenlee % (Auto) (0.0-15.0) % Eos % (Auto) (0.0-7.0) % Baso % (Auto) (0.0-1.5) % Neut # (Auto) (1.4-5.7) K/uL Lymph # (Auto) (0.6-2.4) K/uL Greenlee # (Auto) (0.0-0.8) K/uL Eos # (Auto) (0.0-0.7) K/uL Baso # (Auto) (0.0-0.1) K/uL Nucleated RBC % /100WBC Nucleated RBCs # K/uL ABG pH (7.35-7.45) ABG pCO2 (35-45) mmHG ABG pO2 (75-100) mmHG ABG HCO3 (22-26) mEq/L ABG Total CO2 ABG Base Excess (-2.0-2.0) Sodium (136-145) mmol/L Potassium (3.5-5.1) mmol/L Chloride (98-107) mmol/L Carbon Dioxide (21.0-32.0) mmol/L Anion Gap BUN (7.0-18.0) mg/dL Creatinine (0.6-1.0) mg/dL Est Cr Clr Drug Dosing mL/min Estimated GFR (MDRD) ml/min Glucose (74-106) mg/dL POC Glucose 131 H 140 H (60-110) mg/dL Hemoglobin A1c (4.5-6.2) % Calcium (8.5-10.1) mg/dL Magnesium (1.8-2.4) mg/dL Total Bilirubin (0.2-1.0) mg/dL AST (15-37) IU/L ALT (14-63) IU/L Alkaline Phosphatase (46-116) U/L Troponin I < 0.050 (0.000-0.056) ng/mL Total Protein (6.4-8.2) g/dL Albumin (3.4-5.0) g/dL Globulin (2.6-4.0) g/dL Albumin/Globulin Ratio (0.9-1.6) Free T4 (0.76-1.46) ng/dL Free T3 (2.18-3.98) pg/mL TSH 3rd Generation (0.36-3.74) uIU/mL Urine Ketones Ketones (NEG) 05/11/19 05/11/19 05/11/19 Range/Units 02:58 06:05 06:05 WBC 19.10 H (4.0-11.0) K/uL RBC 3.71 L (4.30-5.90) M/uL Hgb 10.2 L (12.0-16.0) g/dL Hct 30.8 L (36.0-46.0) % MCV 83.0 (80.0-98.0) fL MCH 27.5 (27.0-32.0) pg MCHC 33.1 (31.0-37.0) g/dL RDW Std Deviation 42.3 (28.0-62.0) fl RDW Coeff of Lucho 14 (11.0-15.0) % Plt Count 212 (150-400) K/uL MPV 9.90 (7.40-12.00) fL Neut % (Auto) 86.1 H (48.0-80.0) % Lymph % (Auto) 8.7 L (16.0-40.0) % Greenlee % (Auto) 4.1 (0.0-15.0) % Eos % (Auto) 1.0 (0.0-7.0) % Baso % (Auto) 0.1 (0.0-1.5) % Neut # (Auto) 16.4 H (1.4-5.7) K/uL Lymph # (Auto) 1.7 (0.6-2.4) K/uL Greenlee # (Auto) 0.8 (0.0-0.8) K/uL Eos # (Auto) 0.2 (0.0-0.7) K/uL Baso # (Auto) 0.0 (0.0-0.1) K/uL Nucleated RBC % 0.0 /100WBC Nucleated RBCs # 0 K/uL ABG pH (7.35-7.45) ABG pCO2 (35-45) mmHG ABG pO2 (75-100) mmHG ABG HCO3 (22-26) mEq/L ABG Total CO2 ABG Base Excess (-2.0-2.0) Sodium 137 (136-145) mmol/L Potassium 3.4 L (3.5-5.1) mmol/L Chloride 106 (98-107) mmol/L Carbon Dioxide 21.0 (21.0-32.0) mmol/L Anion Gap BUN 37 H (7.0-18.0) mg/dL Creatinine 1.5 H (0.6-1.0) mg/dL Est Cr Clr Drug Dosing 29.72 mL/min Estimated GFR (MDRD) 35.3 ml/min Glucose 251 H (74-106) mg/dL POC Glucose 268 H (60-110) mg/dL Hemoglobin A1c (4.5-6.2) % Calcium 7.9 L (8.5-10.1) mg/dL Magnesium (1.8-2.4) mg/dL Total Bilirubin 0.9 (0.2-1.0) mg/dL AST 12 L (15-37) IU/L ALT 8 L (14-63) IU/L Alkaline Phosphatase 162 H (46-116) U/L Troponin I (0.000-0.056) ng/mL Total Protein 5.5 L (6.4-8.2) g/dL Albumin 1.3 L (3.4-5.0) g/dL Globulin 4.2 H (2.6-4.0) g/dL Albumin/Globulin Ratio 0.3 L (0.9-1.6) Free T4 (0.76-1.46) ng/dL Free T3 (2.18-3.98) pg/mL TSH 3rd Generation (0.36-3.74) uIU/mL Urine Ketones Ketones (NEG) [place] Results Last 24 Hours: Microbiology 05/09/19 20:42 Aerobic Blood Culture - Preliminary Blood - Venous NO GROWTH AFTER 1 DAY Anaerobic Blood Culture - Preliminary NO GROWTH AFTER 1 DAY 05/09/19 20:25 Aerobic Blood Culture - Preliminary Blood NO GROWTH AFTER 1 DAY Anaerobic Blood Culture - Preliminary NO GROWTH AFTER 1 DAY 05/10/19 13:29 Gram Stain - Preliminary Back - Middle Med Orders - Current: Current Medications Acetaminophen (Tylenol) 650 mg PO Q4H PRN PRN Reason: Pain Cyclobenzaprine HCl (Flexeril) 10 mg PO BEDTIME PRN PRN Reason: Spasms Sodium Chloride (Normal Saline) 1,000 mls @ 125 mls/hr IV ASDIRECTED [facility] Last Admin: 05/11/19 05:23 Dose: 125 mls/hr Clindamycin Phosphate (Cleocin In D5w) 50 mls @ 100 mls/hr IV Q8H [facility] Last Admin: 05/11/19 00:12 Dose: 100 mls/hr Linezolid 600 mg/ Premix 300 mls @ 300 mls/hr IV Q12H [facility] Last Admin: 05/10/19 19:57 Dose: 300 mls/hr Insulin Aspart (Novolog) 0 unit SUBCUT TIDAC [facility]; Protocol Lisinopril (Prinivil) 5 mg PO DAILY [facility] Last Admin: 05/10/19 12:06 Dose: Not Given Nystatin (Nystop) 0 gm TOP TID [facility] Last Admin: 05/11/19 06:43 Dose: 1 applic Ondansetron HCl (Zofran Odt) 4 mg PO Q4H PRN PRN Reason: nausea, able to take PO Last Admin: 05/11/19 03:17 Dose: 4 mg Oxycodone HCl (Oxycodone) 5 mg PO Q4H PRN PRN Reason: Pain (mild 1-3) Last Admin: 05/11/19 00:30 Dose: 5 mg (Betamethasone (Dipropionate)) 0 each TOP BID PRN PRN Reason: Rash Temazepam (Restoril) 15 mg PO BEDTIME PRN PRN Reason: Sleep Vancomycin HCl (Pharmacy To Dose - Vancomycin) 1 dose .XX ASDIRECTED [facility] Discontinued Medications Diltiazem HCl (Diltiazem) 20 mg IVPUSH ONETIME ONE Stop: 05/10/19 14:34 Last Admin: 05/10/19 19:09 Dose: Not Given Diltiazem HCl (Diltiazem) 20 mg IVPUSH ONETIME ONE Stop: 05/10/19 14:47 Last Admin: 05/10/19 19:08 Dose: Not Given Fentanyl (Sublimaze) 50 mcg IVPUSH ONETIME ONE Stop: 05/09/19 20:19 Last Admin: 05/09/19 20:32 Dose: 50 mcg Fentanyl (Sublimaze) 50 mcg IVPUSH ONETIME ONE Stop: 05/09/19 21:26 Last Admin: 05/09/19 21:31 Dose: 50 mcg Fentanyl (Sublimaze) Confirm Administered Dose 250 mcg .ROUTE .STK-MED ONE Stop: 05/10/19 12:28 Heparin Sodium (Porcine) (Heparin Sodium) 5,000 units SUBCUT Q8H [facility] Last Admin: 05/10/19 08:00 Dose: Not Given Sodium Chloride (Normal Saline) 1,000 mls @ 999 mls/hr IV STAT ONE Stop: 05/09/19 21:18 Last Admin: 05/09/19 20:32 Dose: 999 mls/hr Vancomycin HCl 1.5 gm/ Premix 300 mls @ 300 mls/hr IV ASDIRECTED [facility] Vancomycin HCl 1.5 gm/ Sodium (Chloride) 500 mls @ 333.333 mls/hr IV ONETIME ONE Stop: 05/09/19 23:44 Vancomycin HCl 1 gm/Vancomycin HCl 500 mg/ Sodium Chloride 500 mls @ 333.333 mls/hr IV ONETIME ONE Stop: 05/09/19 23:44 Last Admin: 05/09/19 22:50 Dose: 333.333 mls/hr Clindamycin Phosphate (Cleocin In D5w) 50 mls @ 100 mls/hr IV Q8H [facility] Last Admin: 05/10/19 00:10 Dose: Not Given Vancomycin HCl 1.5 gm/ Premix 300 mls @ 200 mls/hr IV Q24H [facility] Insulin Human Regular 100 unit (/ Sodium Chloride) 100 mls @ 8 mls/hr IV TITRATE [facility]; Protocol Last Titration: 05/10/19 17:23 Dose: 8 unit/hr, 8 mls/hr Bupivacaine HCl/Epinephrine Bitart (Sensorc Mpf 0.25%-Epi [id number]) Confirm Administered Dose 30 mls @ as directed .ROUTE .STK-MED ONE Stop: 05/10/19 13:28 Sodium Chloride (Normal Saline) 1,000 mls @ 999 mls/hr IV BOLUS [facility] Stop: 05/11/19 17:31 Last Admin: 05/10/19 17:35 Dose: 999 mls/hr Sodium Chloride (Normal Saline) 1,000 mls @ 999 mls/hr IV BOLUS ONE Stop: 05/11/19 00:04 Last Admin: 05/10/19 23:11 Dose: 999 mls/hr Insulin Aspart (Novolog) 0 unit SUBCUT TIDAC [facility]; Protocol Last Admin: 05/10/19 18:01 Dose: Not Given Insulin Aspart (Novolog) 15 unit SUBCUT ONETIME ONE Stop: 05/10/19 06:48 Last Admin: 05/10/19 07:12 Dose: 15 units Insulin Human Regular (Novolin R) 5 unit SUBCUT ONETIME ONE; Protocol Stop: 05/11/19 03:26 Last Admin: 05/11/19 04:01 Dose: 5 unit Midazolam HCl (Versed 1 Mg/Ml) Confirm Administered Dose 2 mg .ROUTE .STK-MED ONE Stop: 05/10/19 12:28 Morphine Sulfate (Morphine) 2 mg IVPUSH Q2H PRN PRN Reason: Pain (severe 7-10) Stop: 05/11/19 06:51 Ondansetron HCl (Zofran) Confirm Administered Dose 4 mg .ROUTE .STK-MED ONE Stop: 05/10/19 13:31 Oxycodone HCl (Oxycodone) 5 mg PO Q6H PRN PRN Reason: Pain Last Admin: 05/10/19 20:11 Dose: 5 mg Succinylcholine Chloride (Succinylcholine Chloride) Confirm Administered Dose 200 mg .ROUTE .STK-MED ONE Stop: 05/10/19 12:26 Sugammadex Sodium (Bridion) Confirm Administered Dose 200 mg .ROUTE .STK-MED ONE Stop: 05/10/19 13:27 - Exam Quality Assessment: Supplemental Oxygen General: Alert, Oriented, Cooperative, Mild Distress HEENT: Pupils Equal, Pupils Reactive, EOMI. No: Mucous Membr. Moist/[place] (Dry) Neck: Supple, Trachea Midline Lungs: Clear to Auscultation, Normal Respiratory Effort Cardiovascular: Regular Rate, Regular Rhythm, Murmurs GI/Abdominal Exam: Normal Bowel Sounds, Soft, Non-Tender, No Distention Back Exam: Normal Inspection (Age appropriate) Extremities: Normal Inspection, Other (Severe varicose veins) Skin: Warm, Dry, Other (Area of previously noted cellulitis improving, less erythema) Neurological: No New Focal Deficit Psy/Mental Status: Alert, Normal Affect, Normal Mood - Problem List & Annotations (1) Cellulitis SNOMED Code(s): 699560067 Code(s): L03.90 - CELLULITIS, UNSPECIFIED Status: Acute Priority: High Current Visit: Yes Qualifiers: Site of cellulitis: trunk Site of cellulitis of trunk: back Qualified Code(s): L03.312 - Cellulitis of back [any part except buttock] (2) Systolic murmur SNOMED Code(s): 51174101 Code(s): R01.1 - CARDIAC MURMUR, UNSPECIFIED Status: Chronic Priority: Medium Current Visit: Yes (3) Diabetes mellitus type 2 in obese SNOMED Code(s): 17847135 Code(s): E11.69 - TYPE 2 DIABETES MELLITUS WITH OTHER SPECIFIED COMPLICATION ; E66.9 - OBESITY, UNSPECIFIED Status: Chronic Priority: High Current Visit: Yes Annotation/Comment:: Hemoglobin A1c 12.5%. (4) Hypertension SNOMED Code(s): 02794581 Code(s): I10 - ESSENTIAL (PRIMARY) HYPERTENSION Status: Chronic Priority : High Current Visit: Yes Qualifiers: Hypertension type: essential hypertension Qualified Code(s): I10 - Essential (primary) hypertension (5) Leukocytosis SNOMED Code(s): 422610266, 751385644 Code(s): D72.829 - ELEVATED WHITE BLOOD CELL COUNT, UNSPECIFIED Status: Acute Priority: High Current Visit: Yes Qualifiers: Leukocytosis type: bandemia Qualified Code(s): D72.825 - Bandemia (6) Chronic kidney disease (CKD), stage III (moderate) SNOMED Code(s): 236472845 Code(s): N18.3 - CHRONIC KIDNEY DISEASE, STAGE 3 (MODERATE) Status: Chronic Priority: Medium Current Visit: Yes - Problem List Review Problem List Initiated/Reviewed/Updated: Yes - My Orders Last 24 Hours: My Active Orders 05/10/19 06:50 Oxygen Therapy [RC] PRN Up ad Jess [RC] ASDIRECTED VTE/DVT Education [RC] PER UNIT ROUTINE Vital Signs [RC] Q1H Consult to Diabetic Nurse Specialist [CONS] Routine Cyclobenzaprine [Flexeril] 10 mg PO BEDTIME PRN Ondansetron [Zofran ODT] 4 mg PO Q4H PRN Patient's Own Medication [Ptom] 0 each TOP BID PRN Glucose Management Sub Q Reflex [OM.PC] Click To Edit Resuscitation Status Routine 05/10/19 06:52 Diabetes Education [RC] Click to Edit 05/10/19 07:19 Notify Provider Consults [RC] ASDIRECTED Consult to Physician [CONS] Urgent 05/10/19 07:30 Pharmacy to Dose - Vancomycin 1 dose .XX ASDIRECTED 05/10/19 08:15 Linezolid [Zyvox] 600 mg Premix Bag 1 bag IV Q12H 05/10/19 09:00 Lisinopril [Prinivil] 5 mg PO DAILY 05/10/19 13:29 CULTURE ANAEROBIC [RM] Routine CULTURE WOUND [RM] Routine GRAM STAIN [RM] Routine 05/10/19 14:00 Nystatin [Nystop] 0 gm TOP TID 05/10/19 15:56 Transfer Patient (Change bed) [ADT] Routine 05/11/19 07:30 Insulin Aspart [NovoLOG] See Protocol SUBCUT TIDAC 05/11/19 Breakfast [employer] Diet [DIET] - Plan Plan:: The patient is a 63-year-old lady who is currently in ICU due to postoperative complications. The patient will be downgraded from ICU. The patient will be kept on her appropriate ADA diet along with Accu-Cheks before meals and insulin sliding scale high dose for now. The patient is still pending evaluation by asthma educator due to her poor control. I discussed with the patient and her family the implications of a hemoglobin A1c at 12.5%. I suspect that due to her poor control of her hyperglycemia that this is resulted in her chronic kidney disease stage III. For now repeat laboratory studies have been ordered. Medications will be renally dosed because of this. The patient has been encouraged to use incentive spirometer as well as ambulate. Cultures are currently pending and the patient's antibiotics will be adjusted as necessary.
--- NOTE | 2019-05-11 07:27 | PCM48HPAN ---
Post Anesthesia Note - EVALUATION WITHIN 48HRS OF ANESTHETIC Vital Signs in Normal Range: Yes Patient Participated in Evaluation: Yes Respiratory Function Stable: Yes Airway Patent: Yes Cardiovascular Function Stable: Yes Hydration Status Stable: Yes Pain Control Satisfactory: Yes Nausea and Vomiting Control Satisfactory: Yes Mental Status Recovered: Yes Vital Signs: Last Vital Signs Temp 98.1 F 05/11/19 06:00 Pulse 64 05/10/19 19:15 Resp 20 05/11/19 07:00 BP 112/58 L 05/11/19 07:00 Pulse Ox 91 L 05/11/19 07:15 - COMMENTS/OBSERVATIONS Free Text/Narrative:: Pt improving, decreased U/O, 20mL/hr, mild hypotension overnight. EiCU following.
[2019-05-11] MEDS: Linezolid 600 MG in Premix Bag 1 BAG IV SCH ×2 (07:30→20:31)
[2019-05-11] MEDS: Insulin Aspart 100 Units/ML 3 ML Pen SUBCUT SCH ×3 (07:39→18:12)
[2019-05-11] MEDS: Lisinopril 5 MG Tab PO SCH ×2 (08:49→14:12)
--- NOTE | 2019-05-11 08:55 | PCM.SURGPN ---
- General Info Date of Service: 05/11/19 Functional Status: Reports: Pain Controlled (sinus rythm, no co) - Patient Data Vitals - Most Recent: Last Vital Signs Temp 98.1 F 05/11/19 06:00 Pulse 64 05/10/19 19:15 Resp 20 05/11/19 07:00 BP 112/58 L 05/11/19 08:49 Pulse Ox 91 L 05/11/19 07:15 Weight - Most Recent: 207 lb 0.225 oz I&O - Last 24 Hours: Intake & Output 05/10/19 05/11/19 05/11/19 22:59 06:59 14:59 Intake Total 2936 2151 Output Total 150 100 Balance 2786 2051 Lab Results Last 24 Hrs: Laboratory Results - last 24 hr 05/10/19 05/10/19 05/10/19 Range/Units 09:15 10:03 10:30 WBC (4.0-11.0) K/uL RBC (4.30-5.90) M/uL Hgb (12.0-16.0) g/dL Hct (36.0-46.0) % MCV (80.0-98.0) fL MCH (27.0-32.0) pg MCHC (31.0-37.0) g/dL RDW Std Deviation (28.0-62.0) fl RDW Coeff of Lucho (11.0-15.0) % Plt Count (150-400) K/uL MPV (7.40-12.00) fL Neut % (Auto) (48.0-80.0) % Lymph % (Auto) (16.0-40.0) % Boyle % (Auto) (0.0-15.0) % Eos % (Auto) (0.0-7.0) % Baso % (Auto) (0.0-1.5) % Neut # (Auto) (1.4-5.7) K/uL Lymph # (Auto) (0.6-2.4) K/uL Boyle # (Auto) (0.0-0.8) K/uL Eos # (Auto) (0.0-0.7) K/uL Baso # (Auto) (0.0-0.1) K/uL Nucleated RBC % /100WBC Nucleated RBCs # K/uL ABG pH (7.35-7.45) ABG pCO2 (35-45) mmHG ABG pO2 (75-100) mmHG ABG HCO3 (22-26) mEq/L ABG Total CO2 ABG Base Excess (-2.0-2.0) Sodium (136-145) mmol/L Potassium (3.5-5.1) mmol/L Chloride (98-107) mmol/L Carbon Dioxide (21.0-32.0) mmol/L Anion Gap BUN (7.0-18.0) mg/dL Creatinine (0.6-1.0) mg/dL Est Cr Clr Drug Dosing mL/min Estimated GFR (MDRD) ml/min Glucose (74-106) mg/dL POC Glucose 388 H 409 H (60-110) mg/dL Calcium (8.5-10.1) mg/dL Magnesium (1.8-2.4) mg/dL Total Bilirubin (0.2-1.0) mg/dL AST (15-37) IU/L ALT (14-63) IU/L Alkaline Phosphatase (46-116) U/L Troponin I (0.000-0.056) ng/mL Total Protein (6.4-8.2) g/dL Albumin (3.4-5.0) g/dL Globulin (2.6-4.0) g/dL Albumin/Globulin Ratio (0.9-1.6) Free T4 (0.76-1.46) ng/dL Free T3 (2.18-3.98) pg/mL TSH 3rd Generation (0.36-3.74) uIU/mL Urine Ketones NEGATIVE Ketones (NEG) 05/10/19 05/10/19 05/10/19 Range/Units 10:35 11:06 11:55 WBC (4.0-11.0) K/uL RBC (4.30-5.90) M/uL Hgb (12.0-16.0) g/dL Hct (36.0-46.0) % MCV (80.0-98.0) fL MCH (27.0-32.0) pg MCHC (31.0-37.0) g/dL RDW Std Deviation (28.0-62.0) fl RDW Coeff of Lucho (11.0-15.0) % Plt Count (150-400) K/uL MPV (7.40-12.00) fL Neut % (Auto) (48.0-80.0) % Lymph % (Auto) (16.0-40.0) % Boyle % (Auto) (0.0-15.0) % Eos % (Auto) (0.0-7.0) % Baso % (Auto) (0.0-1.5) % Neut # (Auto) (1.4-5.7) K/uL Lymph # (Auto) (0.6-2.4) K/uL Boyle # (Auto) (0.0-0.8) K/uL Eos # (Auto) (0.0-0.7) K/uL Baso # (Auto) (0.0-0.1) K/uL Nucleated RBC % /100WBC Nucleated RBCs # K/uL ABG pH (7.35-7.45) ABG pCO2 (35-45) mmHG ABG pO2 (75-100) mmHG ABG HCO3 (22-26) mEq/L ABG Total CO2 ABG Base Excess (-2.0-2.0) Sodium (136-145) mmol/L Potassium (3.5-5.1) mmol/L Chloride (98-107) mmol/L Carbon Dioxide (21.0-32.0) mmol/L Anion Gap BUN (7.0-18.0) mg/dL Creatinine (0.6-1.0) mg/dL Est Cr Clr Drug Dosing mL/min Estimated GFR (MDRD) ml/min Glucose (74-106) mg/dL POC Glucose 390 H 306 H (60-110) mg/dL Calcium (8.5-10.1) mg/dL Magnesium (1.8-2.4) mg/dL Total Bilirubin (0.2-1.0) mg/dL AST (15-37) IU/L ALT (14-63) IU/L Alkaline Phosphatase (46-116) U/L Troponin I (0.000-0.056) ng/mL Total Protein (6.4-8.2) g/dL Albumin (3.4-5.0) g/dL Globulin (2.6-4.0) g/dL Albumin/Globulin Ratio (0.9-1.6) Free T4 (0.76-1.46) ng/dL Free T3 (2.18-3.98) pg/mL TSH 3rd Generation (0.36-3.74) uIU/mL Urine Ketones Ketones NEGATIVE (NEG) 05/10/19 05/10/19 05/10/19 Range/Units 13:12 14:14 15:05 WBC (4.0-11.0) K/uL RBC (4.30-5.90) M/uL Hgb (12.0-16.0) g/dL Hct (36.0-46.0) % MCV (80.0-98.0) fL MCH (27.0-32.0) pg MCHC (31.0-37.0) g/dL RDW Std Deviation (28.0-62.0) fl RDW Coeff of Lucho (11.0-15.0) % Plt Count (150-400) K/uL MPV (7.40-12.00) fL Neut % (Auto) (48.0-80.0) % Lymph % (Auto) (16.0-40.0) % Boyle % (Auto) (0.0-15.0) % Eos % (Auto) (0.0-7.0) % Baso % (Auto) (0.0-1.5) % Neut # (Auto) (1.4-5.7) K/uL Lymph # (Auto) (0.6-2.4) K/uL Boyle # (Auto) (0.0-0.8) K/uL Eos # (Auto) (0.0-0.7) K/uL Baso # (Auto) (0.0-0.1) K/uL Nucleated RBC % /100WBC Nucleated RBCs # K/uL ABG pH (7.35-7.45) ABG pCO2 (35-45) mmHG ABG pO2 (75-100) mmHG ABG HCO3 (22-26) mEq/L ABG Total CO2 ABG Base Excess (-2.0-2.0) Sodium 136 (136-145) mmol/L Potassium 3.3 L (3.5-5.1) mmol/L Chloride 102 (98-107) mmol/L Carbon Dioxide 22.9 (21.0-32.0) mmol/L Anion Gap 14.4 BUN (7.0-18.0) mg/dL Creatinine (0.6-1.0) mg/dL Est Cr Clr Drug Dosing mL/min Estimated GFR (MDRD) ml/min Glucose (74-106) mg/dL POC Glucose 299 H 294 H (60-110) mg/dL Calcium 8.9 (8.5-10.1) mg/dL Magnesium 1.9 (1.8-2.4) mg/dL Total Bilirubin (0.2-1.0) mg/dL AST (15-37) IU/L ALT (14-63) IU/L Alkaline Phosphatase (46-116) U/L Troponin I (0.000-0.056) ng/mL Total Protein (6.4-8.2) g/dL Albumin (3.4-5.0) g/dL Globulin (2.6-4.0) g/dL Albumin/Globulin Ratio (0.9-1.6) Free T4 1.94 H (0.76-1.46) ng/dL Free T3 1.56 L (2.18-3.98) pg/mL TSH 3rd Generation 1.23 (0.36-3.74) uIU/mL Urine Ketones Ketones (NEG) 05/10/19 05/10/19 05/10/19 Range/Units 15:05 15:17 15:54 WBC (4.0-11.0) K/uL RBC (4.30-5.90) M/uL Hgb (12.0-16.0) g/dL Hct (36.0-46.0) % MCV (80.0-98.0) fL MCH (27.0-32.0) pg MCHC (31.0-37.0) g/dL RDW Std Deviation (28.0-62.0) fl RDW Coeff of Lucho (11.0-15.0) % Plt Count (150-400) K/uL MPV (7.40-12.00) fL Neut % (Auto) (48.0-80.0) % Lymph % (Auto) (16.0-40.0) % Boyle % (Auto) (0.0-15.0) % Eos % (Auto) (0.0-7.0) % Baso % (Auto) (0.0-1.5) % Neut # (Auto) (1.4-5.7) K/uL Lymph # (Auto) (0.6-2.4) K/uL Boyle # (Auto) (0.0-0.8) K/uL Eos # (Auto) (0.0-0.7) K/uL Baso # (Auto) (0.0-0.1) K/uL Nucleated RBC % /100WBC Nucleated RBCs # K/uL ABG pH 7.399 (7.35-7.45) ABG pCO2 35 (35-45) mmHG ABG pO2 75 (75-100) mmHG ABG HCO3 22 (22-26) mEq/L ABG Total CO2 19.8 ABG Base Excess -2.7 L (-2.0-2.0) Sodium (136-145) mmol/L Potassium (3.5-5.1) mmol/L Chloride (98-107) mmol/L Carbon Dioxide (21.0-32.0) mmol/L Anion Gap BUN (7.0-18.0) mg/dL Creatinine (0.6-1.0) mg/dL Est Cr Clr Drug Dosing mL/min Estimated GFR (MDRD) ml/min Glucose (74-106) mg/dL POC Glucose 229 H (60-110) mg/dL Calcium (8.5-10.1) mg/dL Magnesium (1.8-2.4) mg/dL Total Bilirubin (0.2-1.0) mg/dL AST (15-37) IU/L ALT (14-63) IU/L Alkaline Phosphatase (46-116) U/L Troponin I < 0.050 (0.000-0.056) ng/mL Total Protein (6.4-8.2) g/dL Albumin (3.4-5.0) g/dL Globulin (2.6-4.0) g/dL Albumin/Globulin Ratio (0.9-1.6) Free T4 (0.76-1.46) ng/dL Free T3 (2.18-3.98) pg/mL TSH 3rd Generation (0.36-3.74) uIU/mL Urine Ketones Ketones (NEG) 05/10/19 05/10/19 05/10/19 Range/Units 16:20 17:21 17:59 WBC (4.0-11.0) K/uL RBC (4.30-5.90) M/uL Hgb (12.0-16.0) g/dL Hct (36.0-46.0) % MCV (80.0-98.0) fL MCH (27.0-32.0) pg MCHC (31.0-37.0) g/dL RDW Std Deviation (28.0-62.0) fl RDW Coeff of Lucho (11.0-15.0) % Plt Count (150-400) K/uL MPV (7.40-12.00) fL Neut % (Auto) (48.0-80.0) % Lymph % (Auto) (16.0-40.0) % Boyle % (Auto) (0.0-15.0) % Eos % (Auto) (0.0-7.0) % Baso % (Auto) (0.0-1.5) % Neut # (Auto) (1.4-5.7) K/uL Lymph # (Auto) (0.6-2.4) K/uL Boyle # (Auto) (0.0-0.8) K/uL Eos # (Auto) (0.0-0.7) K/uL Baso # (Auto) (0.0-0.1) K/uL Nucleated RBC % /100WBC Nucleated RBCs # K/uL ABG pH (7.35-7.45) ABG pCO2 (35-45) mmHG ABG pO2 (75-100) mmHG ABG HCO3 (22-26) mEq/L ABG Total CO2 ABG Base Excess (-2.0-2.0) Sodium (136-145) mmol/L Potassium (3.5-5.1) mmol/L Chloride (98-107) mmol/L Carbon Dioxide (21.0-32.0) mmol/L Anion Gap BUN (7.0-18.0) mg/dL Creatinine (0.6-1.0) mg/dL Est Cr Clr Drug Dosing mL/min Estimated GFR (MDRD) ml/min Glucose (74-106) mg/dL POC Glucose 199 H 137 H 131 H (60-110) mg/dL Calcium (8.5-10.1) mg/dL Magnesium (1.8-2.4) mg/dL Total Bilirubin (0.2-1.0) mg/dL AST (15-37) IU/L ALT (14-63) IU/L Alkaline Phosphatase (46-116) U/L Troponin I (0.000-0.056) ng/mL Total Protein (6.4-8.2) g/dL Albumin (3.4-5.0) g/dL Globulin (2.6-4.0) g/dL Albumin/Globulin Ratio (0.9-1.6) Free T4 (0.76-1.46) ng/dL Free T3 (2.18-3.98) pg/mL TSH 3rd Generation (0.36-3.74) uIU/mL Urine Ketones Ketones (NEG) 05/10/19 05/10/19 05/11/19 Range/Units 19:14 21:29 02:58 WBC (4.0-11.0) K/uL RBC (4.30-5.90) M/uL Hgb (12.0-16.0) g/dL Hct (36.0-46.0) % MCV (80.0-98.0) fL MCH (27.0-32.0) pg MCHC (31.0-37.0) g/dL RDW Std Deviation (28.0-62.0) fl RDW Coeff of Lucho (11.0-15.0) % Plt Count (150-400) K/uL MPV (7.40-12.00) fL Neut % (Auto) (48.0-80.0) % Lymph % (Auto) (16.0-40.0) % Boyle % (Auto) (0.0-15.0) % Eos % (Auto) (0.0-7.0) % Baso % (Auto) (0.0-1.5) % Neut # (Auto) (1.4-5.7) K/uL Lymph # (Auto) (0.6-2.4) K/uL Boyle # (Auto) (0.0-0.8) K/uL Eos # (Auto) (0.0-0.7) K/uL Baso # (Auto) (0.0-0.1) K/uL Nucleated RBC % /100WBC Nucleated RBCs # K/uL ABG pH (7.35-7.45) ABG pCO2 (35-45) mmHG ABG pO2 (75-100) mmHG ABG HCO3 (22-26) mEq/L ABG Total CO2 ABG Base Excess (-2.0-2.0) Sodium (136-145) mmol/L Potassium (3.5-5.1) mmol/L Chloride (98-107) mmol/L Carbon Dioxide (21.0-32.0) mmol/L Anion Gap BUN (7.0-18.0) mg/dL Creatinine (0.6-1.0) mg/dL Est Cr Clr Drug Dosing mL/min Estimated GFR (MDRD) ml/min Glucose (74-106) mg/dL POC Glucose 140 H 268 H (60-110) mg/dL Calcium (8.5-10.1) mg/dL Magnesium (1.8-2.4) mg/dL Total Bilirubin (0.2-1.0) mg/dL AST (15-37) IU/L ALT (14-63) IU/L Alkaline Phosphatase (46-116) U/L Troponin I < 0.050 (0.000-0.056) ng/mL Total Protein (6.4-8.2) g/dL Albumin (3.4-5.0) g/dL Globulin (2.6-4.0) g/dL Albumin/Globulin Ratio (0.9-1.6) Free T4 (0.76-1.46) ng/dL Free T3 (2.18-3.98) pg/mL TSH 3rd Generation (0.36-3.74) uIU/mL Urine Ketones Ketones (NEG) 05/11/19 05/11/19 05/11/19 Range/Units 06:05 06:05 07:33 WBC 19.10 H (4.0-11.0) K/uL RBC 3.71 L (4.30-5.90) M/uL Hgb 10.2 L (12.0-16.0) g/dL Hct 30.8 L (36.0-46.0) % MCV 83.0 (80.0-98.0) fL MCH 27.5 (27.0-32.0) pg MCHC 33.1 (31.0-37.0) g/dL RDW Std Deviation 42.3 (28.0-62.0) fl RDW Coeff of Lucho 14 (11.0-15.0) % Plt Count 212 (150-400) K/uL MPV 9.90 (7.40-12.00) fL Neut % (Auto) 86.1 H (48.0-80.0) % Lymph % (Auto) 8.7 L (16.0-40.0) % Boyle % (Auto) 4.1 (0.0-15.0) % Eos % (Auto) 1.0 (0.0-7.0) % Baso % (Auto) 0.1 (0.0-1.5) % Neut # (Auto) 16.4 H (1.4-5.7) K/uL Lymph # (Auto) 1.7 (0.6-2.4) K/uL Boyle # (Auto) 0.8 (0.0-0.8) K/uL Eos # (Auto) 0.2 (0.0-0.7) K/uL Baso # (Auto) 0.0 (0.0-0.1) K/uL Nucleated RBC % 0.0 /100WBC Nucleated RBCs # 0 K/uL ABG pH (7.35-7.45) ABG pCO2 (35-45) mmHG ABG pO2 (75-100) mmHG ABG HCO3 (22-26) mEq/L ABG Total CO2 ABG Base Excess (-2.0-2.0) Sodium 137 (136-145) mmol/L Potassium 3.4 L (3.5-5.1) mmol/L Chloride 106 (98-107) mmol/L Carbon Dioxide 21.0 (21.0-32.0) mmol/L Anion Gap BUN 37 H (7.0-18.0) mg/dL Creatinine 1.5 H (0.6-1.0) mg/dL Est Cr Clr Drug Dosing 29.72 mL/min Estimated GFR (MDRD) 35.3 ml/min Glucose 251 H (74-106) mg/dL POC Glucose 238 H (60-110) mg/dL Calcium 7.9 L (8.5-10.1) mg/dL Magnesium (1.8-2.4) mg/dL Total Bilirubin 0.9 (0.2-1.0) mg/dL AST 12 L (15-37) IU/L ALT 8 L (14-63) IU/L Alkaline Phosphatase 162 H (46-116) U/L Troponin I (0.000-0.056) ng/mL Total Protein 5.5 L (6.4-8.2) g/dL Albumin 1.3 L (3.4-5.0) g/dL Globulin 4.2 H (2.6-4.0) g/dL Albumin/Globulin Ratio 0.3 L (0.9-1.6) Free T4 (0.76-1.46) ng/dL Free T3 (2.18-3.98) pg/mL TSH 3rd Generation (0.36-3.74) uIU/mL Urine Ketones Ketones (NEG) [place] Results Last 24 Hrs: Microbiology 05/09/19 20:42 Aerobic Blood Culture - Preliminary Blood - Venous NO GROWTH AFTER 1 DAY Anaerobic Blood Culture - Preliminary NO GROWTH AFTER 1 DAY 05/09/19 20:25 Aerobic Blood Culture - Preliminary Blood NO GROWTH AFTER 1 DAY Anaerobic Blood Culture - Preliminary NO GROWTH AFTER 1 DAY 05/10/19 13:29 Gram Stain - Preliminary Back - Middle Med Orders - Current: Current Medications Acetaminophen (Tylenol) 650 mg PO Q4H PRN PRN Reason: Pain Cyclobenzaprine HCl (Flexeril) 10 mg PO BEDTIME PRN PRN Reason: Spasms Sodium Chloride (Normal Saline) 1,000 mls @ 125 mls/hr IV ASDIRECTED [facility] Last Admin: 05/11/19 05:23 Dose: 125 mls/hr Clindamycin Phosphate (Cleocin In D5w) 50 mls @ 100 mls/hr IV Q8H [facility] Last Admin: 05/11/19 08:45 Dose: 100 mls/hr Linezolid 600 mg/ Premix 300 mls @ 300 mls/hr IV Q12H [facility] Last Admin: 05/11/19 07:30 Dose: 300 mls/hr Insulin Aspart (Novolog) 0 unit SUBCUT TIDAC [facility]; Protocol Last Admin: 05/11/19 07:39 Dose: 6 unit Lisinopril (Prinivil) 5 mg PO DAILY [facility] Last Admin: 05/11/19 08:49 Dose: Not Given Nystatin (Nystop) 0 gm TOP TID [facility] Last Admin: 05/11/19 06:43 Dose: 1 applic Ondansetron HCl (Zofran Odt) 4 mg PO Q4H PRN PRN Reason: nausea, able to take PO Last Admin: 05/11/19 03:17 Dose: 4 mg Oxycodone HCl (Oxycodone) 5 mg PO Q4H PRN PRN Reason: Pain (mild 1-3) Last Admin: 05/11/19 06:30 Dose: 5 mg (Betamethasone (Dipropionate)) 0 each TOP BID PRN PRN Reason: Rash Temazepam (Restoril) 15 mg PO BEDTIME PRN PRN Reason: Sleep Discontinued Medications Diltiazem HCl (Diltiazem) 20 mg IVPUSH ONETIME ONE Stop: 05/10/19 14:34 Last Admin: 05/10/19 19:09 Dose: Not Given Diltiazem HCl (Diltiazem) 20 mg IVPUSH ONETIME ONE Stop: 05/10/19 14:47 Last Admin: 05/10/19 19:08 Dose: Not Given Fentanyl (Sublimaze) 50 mcg IVPUSH ONETIME ONE Stop: 05/09/19 20:19 Last Admin: 05/09/19 20:32 Dose: 50 mcg Fentanyl (Sublimaze) 50 mcg IVPUSH ONETIME ONE Stop: 05/09/19 21:26 Last Admin: 05/09/19 21:31 Dose: 50 mcg Fentanyl (Sublimaze) Confirm Administered Dose 250 mcg .ROUTE .STK-MED ONE Stop: 05/10/19 12:28 Heparin Sodium (Porcine) (Heparin Sodium) 5,000 units SUBCUT Q8H [facility] Last Admin: 05/10/19 08:00 Dose: Not Given Sodium Chloride (Normal Saline) 1,000 mls @ 999 mls/hr IV STAT ONE Stop: 05/09/19 21:18 Last Admin: 05/09/19 20:32 Dose: 999 mls/hr Vancomycin HCl 1.5 gm/ Premix 300 mls @ 300 mls/hr IV ASDIRECTED [facility] Vancomycin HCl 1.5 gm/ Sodium (Chloride) 500 mls @ 333.333 mls/hr IV ONETIME ONE Stop: 05/09/19 23:44 Vancomycin HCl 1 gm/Vancomycin HCl 500 mg/ Sodium Chloride 500 mls @ 333.333 mls/hr IV ONETIME ONE Stop: 05/09/19 23:44 Last Admin: 05/09/19 22:50 Dose: 333.333 mls/hr Clindamycin Phosphate (Cleocin In D5w) 50 mls @ 100 mls/hr IV Q8H [facility] Last Admin: 05/10/19 00:10 Dose: Not Given Vancomycin HCl 1.5 gm/ Premix 300 mls @ 200 mls/hr IV Q24H [facility] Insulin Human Regular 100 unit (/ Sodium Chloride) 100 mls @ 8 mls/hr IV TITRATE [facility]; Protocol Last Titration: 05/10/19 17:23 Dose: 8 unit/hr, 8 mls/hr Bupivacaine HCl/Epinephrine Bitart (Sensorc Mpf 0.25%-Epi [id number]) Confirm Administered Dose 30 mls @ as directed .ROUTE .STK-MED ONE Stop: 05/10/19 13:28 Sodium Chloride (Normal Saline) 1,000 mls @ 999 mls/hr IV BOLUS [facility] Stop: 05/11/19 17:31 Last Admin: 05/10/19 17:35 Dose: 999 mls/hr Sodium Chloride (Normal Saline) 1,000 mls @ 999 mls/hr IV BOLUS ONE Stop: 05/11/19 00:04 Last Admin: 05/10/19 23:11 Dose: 999 mls/hr Insulin Aspart (Novolog) 0 unit SUBCUT TIDAC [facility]; Protocol Last Admin: 05/10/19 18:01 Dose: Not Given Insulin Aspart (Novolog) 15 unit SUBCUT ONETIME ONE Stop: 05/10/19 06:48 Last Admin: 05/10/19 07:12 Dose: 15 units Insulin Human Regular (Novolin R) 5 unit SUBCUT ONETIME ONE; Protocol Stop: 05/11/19 03:26 Last Admin: 05/11/19 04:01 Dose: 5 unit Midazolam HCl (Versed 1 Mg/Ml) Confirm Administered Dose 2 mg .ROUTE .STK-MED ONE Stop: 05/10/19 12:28 Morphine Sulfate (Morphine) 2 mg IVPUSH Q2H PRN PRN Reason: Pain (severe 7-10) Stop: 05/11/19 06:51 Ondansetron HCl (Zofran) Confirm Administered Dose 4 mg .ROUTE .STK-MED ONE Stop: 05/10/19 13:31 Oxycodone HCl (Oxycodone) 5 mg PO Q6H PRN PRN Reason: Pain Last Admin: 05/10/19 20:11 Dose: 5 mg Succinylcholine Chloride (Succinylcholine Chloride) Confirm Administered Dose 200 mg .ROUTE .STK-MED ONE Stop: 05/10/19 12:26 Sugammadex Sodium (Bridion) Confirm Administered Dose 200 mg .ROUTE .STK-MED ONE Stop: 05/10/19 13:27 Vancomycin HCl (Pharmacy To Dose - Vancomycin) 1 dose .XX ASDIRECTED [facility] - Exam Skin: Warm, Dry (back wound drsg intact, no bloody drainage) - Problem List Review Problem List Initiated/Reviewed/Updated: Yes - My Orders Last 24 Hours: Active Orders 24 hr Category Date Time Status Transfer Patient (Change bed) [ADT] Routine ADT 05/10/19 15:56 Ordered Transfer Patient (Change bed) [ADT] Routine ADT 05/11/19 07:20 Ordered Communication Order [RC] ROUTINE Care 05/10/19 14:42 Active Notify Provider Consults [RC] ASDIRECTED Care 05/10/19 14:38 Active Consult to Physician [CONS] Routine Cons 05/10/19 14:37 Active Consult to Wound Care Services [CONS] Routine Cons 05/10/19 14:41 Active [employer] Diet [DIET] Diet 05/11/19 Breakfast Active CULTURE ANAEROBIC [RM] Routine Lab 05/10/19 13:29 Results CULTURE WOUND [RM] Routine Lab 05/10/19 13:29 Results GRAM STAIN [RM] Routine Lab 05/10/19 13:29 Results Insulin Aspart [NovoLOG] Med 05/11/19 07:30 Active See Protocol SUBCUT TIDAC Linezolid [Zyvox] 600 mg Med 05/10/19 08:15 Active Premix Bag 1 bag IV Q12H Lisinopril [Prinivil] Med 05/10/19 09:00 Active 5 mg PO DAILY Nystatin [Nystop] Med 05/10/19 14:00 Active 0 gm TOP TID oxyCODONE Med 05/11/19 00:30 Active 5 mg PO Q4H PRN Medication Orders Acetaminophen (Tylenol) 650 mg PO Q4H PRN PRN Reason: Pain Cyclobenzaprine HCl (Flexeril) 10 mg PO BEDTIME PRN PRN Reason: Spasms Sodium Chloride (Normal Saline) 1,000 mls @ 125 mls/hr IV ASDIRECTED [facility] Last Admin: 05/11/19 05:23 Dose: 125 mls/hr Infusion: 05/11/19 03:10 Dose: 125 mls/hr Admin: 05/10/19 19:10 Dose: 125 mls/hr Infusion: 05/10/19 17:18 Dose: 125 mls/hr Admin: 05/10/19 09:18 Dose: 125 mls/hr Infusion: 05/10/19 08:44 Dose: 100 mls/hr Admin: 05/09/19 22:44 Dose: 100 mls/hr Clindamycin Phosphate (Cleocin In D5w) 50 mls @ 100 mls/hr IV Q8H [facility] Last Admin: 05/11/19 08:45 Dose: 100 mls/hr Infusion: 05/11/19 00:42 Dose: 100 mls/hr Admin: 05/11/19 00:12 Dose: 100 mls/hr Infusion: 05/10/19 18:08 Dose: 100 mls/hr Admin: 05/10/19 17:38 Dose: 100 mls/hr Infusion: 05/10/19 10:44 Dose: 100 mls/hr Admin: 05/10/19 10:14 Dose: 100 mls/hr Infusion: 05/10/19 01:36 Dose: 100 mls/hr Admin: 05/10/19 01:06 Dose: 100 mls/hr Linezolid 600 mg/ Premix 300 mls @ 300 mls/hr IV Q12H [facility] Last Admin: 05/11/19 07:30 Dose: 300 mls/hr Infusion: 05/10/19 20:57 Dose: 300 mls/hr Admin: 05/10/19 19:57 Dose: 300 mls/hr Infusion: 05/10/19 09:19 Dose: 300 mls/hr Admin: 05/10/19 08:19 Dose: 300 mls/hr Insulin Aspart (Novolog) 0 unit SUBCUT TIDAC [facility]; Protocol Last Admin: 05/11/19 07:39 Dose: 6 unit Lisinopril (Prinivil) 5 mg PO DAILY [facility] Last Admin: 05/11/19 08:49 Dose: Admin: 05/10/19 12:06 Dose: Nystatin (Nystop) 0 gm TOP TID [facility] Last Admin: 05/11/19 06:43 Dose: 1 applic Admin: 05/10/19 21:06 Dose: 1 applic Admin: 05/10/19 17:33 Dose: Not Given Ondansetron HCl (Zofran Odt) 4 mg PO Q4H PRN PRN Reason: nausea, able to take PO Last Admin: 05/11/19 03:17 Dose: 4 mg Oxycodone HCl (Oxycodone) 5 mg PO Q4H PRN PRN Reason: Pain (mild 1-3) Last Admin: 05/11/19 06:30 Dose: 5 mg Admin: 05/11/19 00:30 Dose: 5 mg (Betamethasone (Dipropionate)) 0 each TOP BID PRN PRN Reason: Rash Temazepam (Restoril) 15 mg PO BEDTIME PRN PRN Reason: Sleep - Assessment Assessment (Free Text/Narrative):: postop afib w RVR noted, now in SR; pain in control; fam in room; await wound vac; pt would need wound vac at home to be discharge, will arrange w patient relations coordinator - Plan Plan (Free Text/Narrative):: postop afib w RVR noted, now in SR; pain in control; fam in room; await wound vac; pt would need wound vac at home to be discharge, will arrange w patient relations coordinator
--- NOTE | 2019-05-11 09:49 | PN ---
[facility] Physician - Brief Progress [id number]/15/2019 09:38[facility] Gabriel Contreras, LANCE - MWN (EARLN) - MWN AIXAGALINA SIMSSolitarioDate of Service 05/11/2019 09:38HPI/Events o f Note eICU Daily Progress NotePatient is a 63 year old female admitted to the intensive care unit fo r telemetry monitoring and management of hyperglycemia, following admission and surgical management o f back celllulitis and abscess.On evaluation by camera, patient is laying in bed. Vitals monitor does not appear to be connected to patient. Review of documented vitals in the last 12 hours for the pat ient to be hemodynamically stable. Laboratory studies revealed leukocytosis, hypokalemia, elevated c reatinine, and hyperglycemia. It appears patient has had her insulin drip discontinued.eICU Recommend ations:Episode of atrial fibrillation with tachy-vale arrhythmia, suspect secondary to electrolyte a bnormalities- electrolyte replacement per primary service, recommend goal of K>4 and Mg >2- will defe r anticoagulation decision to primary and surgical serviceCellulitis of back, s/p drainage- will defe r antibiotic therapy to primary and surgical service. We are available to assist with this if desired Diabetes mellitus with hyperglycemia- will defer insulin regimen to primary service, we are available to assist with this if desiredThank you for allowing us to participate in this patient's care.Interv entions Major-Arrhythmia - evaluation and management, Hyperglycemia - active titration of insulin the rapy
[2019-05-11] MEDS ORDERED: Insulin Glargine,Human Rec. Analog 100 Units/ML 3 ML Pen SUBCUT SCH (21:00)
[2019-05-12] MEDS: Clindamycin Phosphate in D5W 50 ML IV SCH ×3 (00:25→16:42)
--- NOTE | 2019-05-12 06:31 | PCM.PN ---
- General Info Date of Service: 05/12/19 Admission Dx/Problem (Free Text): Admission Diagnosis/Problem Admission Diagnosis/Problem Cellulitis, back, poorly controlled diabetes mellitus type 2 Subjective Update: The patient is a 63-year-old lady who had been admitted secondary to abscess to her back. She is currently postop day #2 incision and drainage of the abscess. The patient is still having pain from her incision and drainage. She also has been complaining of anxiety. The patient says that she would like something for her anxious feelings. Patient has been tolerating her diet. The patient has denied any fever or chills. Functional Status: Reports: Pain Controlled - Review of Systems General: Reports: No Symptoms HEENT: Reports: No Symptoms Pulmonary: Reports: No Symptoms Cardiovascular: Reports: No Symptoms Gastrointestinal: Reports: No Symptoms Genitourinary: Reports: No Symptoms Musculoskeletal: Reports: Back Pain Skin: Reports: Rash Neurological: Reports: No Symptoms Psychiatric: Reports: Anxiety - Patient Data Vitals - Most Recent: Last Vital Signs Temp 36.3 C 05/12/19 04:00 Pulse 71 05/12/19 04:00 Resp 16 05/12/19 04:00 BP 128/65 05/12/19 04:00 Pulse Ox 93 L 05/12/19 04:00 Weight - Most Recent: 95.572 kg I&O - Last 24 Hours: Intake & Output 05/11/19 05/11/19 05/12/19 14:59 22:59 06:59 Intake Total 1643 1727 Output Total 125 550 Balance -125 1643 1177 Lab Results Last 24 Hours: Laboratory Results - last 24 hr 05/11/19 05/11/19 05/11/19 Range/Units 06:05 06:05 07:33 WBC (4.0-11.0) K/uL RBC (4.30-5.90) M/uL Hgb (12.0-16.0) g/dL Hct (36.0-46.0) % MCV (80.0-98.0) fL MCH (27.0-32.0) pg MCHC (31.0-37.0) g/dL RDW Std Deviation (28.0-62.0) fl RDW Coeff of Lucho (11.0-15.0) % Plt Count (150-400) K/uL MPV (7.40-12.00) fL Add Manual Diff Neutrophils % (Manual) (48.0-80.0) % Band Neutrophils % % Lymphocytes % (Manual) (16.0-40.0) % Monocytes % (Manual) (0.0-15.0) % Eosinophils % (Manual) (0.0-7.0) % Basophils % (Manual) (0.0-1.5) % Nucleated RBC % /100WBC Absolute Seg Neuts (1.4-5.7) Band Neutrophils # Lymphocytes # (Manual) (0.6-2.4) Monocytes # (Manual) (0.0-0.8) Eosinophils # (Manual) (0.0-0.7) Basophils # (Manual) (0.0-0.1) Nucleated RBCs # K/uL Sodium 137 (136-145) mmol/L Potassium 3.4 L (3.5-5.1) mmol/L Chloride 106 (98-107) mmol/L Carbon Dioxide 21.0 (21.0-32.0) mmol/L BUN 37 H (7.0-18.0) mg/dL Creatinine 1.5 H (0.6-1.0) mg/dL Est Cr Clr Drug Dosing 29.72 mL/min Estimated GFR (MDRD) 35.3 ml/min Glucose 251 H (74-106) mg/dL POC Glucose 238 H (60-110) mg/dL Calcium 7.9 L (8.5-10.1) mg/dL Magnesium 1.8 (1.8-2.4) mg/dL Total Bilirubin 0.9 (0.2-1.0) mg/dL AST 12 L (15-37) IU/L ALT 8 L (14-63) IU/L Alkaline Phosphatase 162 H (46-116) U/L Total Protein 5.5 L (6.4-8.2) g/dL Albumin 1.3 L (3.4-5.0) g/dL Globulin 4.2 H (2.6-4.0) g/dL Albumin/Globulin Ratio 0.3 L (0.9-1.6) 05/11/19 05/11/19 05/11/19 Range/Units 12:51 17:21 20:39 WBC (4.0-11.0) K/uL RBC (4.30-5.90) M/uL Hgb (12.0-16.0) g/dL Hct (36.0-46.0) % MCV (80.0-98.0) fL MCH (27.0-32.0) pg MCHC (31.0-37.0) g/dL RDW Std Deviation (28.0-62.0) fl RDW Coeff of Lucho (11.0-15.0) % Plt Count (150-400) K/uL MPV (7.40-12.00) fL Add Manual Diff Neutrophils % (Manual) (48.0-80.0) % Band Neutrophils % % Lymphocytes % (Manual) (16.0-40.0) % Monocytes % (Manual) (0.0-15.0) % Eosinophils % (Manual) (0.0-7.0) % Basophils % (Manual) (0.0-1.5) % Nucleated RBC % /100WBC Absolute Seg Neuts (1.4-5.7) Band Neutrophils # Lymphocytes # (Manual) (0.6-2.4) Monocytes # (Manual) (0.0-0.8) Eosinophils # (Manual) (0.0-0.7) Basophils # (Manual) (0.0-0.1) Nucleated RBCs # K/uL Sodium (136-145) mmol/L Potassium (3.5-5.1) mmol/L Chloride (98-107) mmol/L Carbon Dioxide (21.0-32.0) mmol/L BUN (7.0-18.0) mg/dL Creatinine (0.6-1.0) mg/dL Est Cr Clr Drug Dosing mL/min Estimated GFR (MDRD) ml/min Glucose (74-106) mg/dL POC Glucose 283 H 254 H 267 H (60-110) mg/dL Calcium (8.5-10.1) mg/dL Magnesium (1.8-2.4) mg/dL Total Bilirubin (0.2-1.0) mg/dL AST (15-37) IU/L ALT (14-63) IU/L Alkaline Phosphatase (46-116) U/L Total Protein (6.4-8.2) g/dL Albumin (3.4-5.0) g/dL Globulin (2.6-4.0) g/dL Albumin/Globulin Ratio (0.9-1.6) 05/12/19 05/12/19 05/12/19 Range/Units 05:15 05:15 06:19 WBC 9.33 (4.0-11.0) K/uL RBC 3.84 L (4.30-5.90) M/uL Hgb 10.3 L (12.0-16.0) g/dL Hct 31.6 L (36.0-46.0) % MCV 82.3 (80.0-98.0) fL MCH 26.8 L (27.0-32.0) pg MCHC 32.6 (31.0-37.0) g/dL RDW Std Deviation 42.3 (28.0-62.0) fl RDW Coeff of Lucho 14 (11.0-15.0) % Plt Count 227 (150-400) K/uL MPV 10.30 (7.40-12.00) fL Add Manual Diff YES Neutrophils % (Manual) 73 (48.0-80.0) % Band Neutrophils % 14 % Lymphocytes % (Manual) 3 L (16.0-40.0) % Monocytes % (Manual) 3 (0.0-15.0) % Eosinophils % (Manual) 4 (0.0-7.0) % Basophils % (Manual) 3 H (0.0-1.5) % Nucleated RBC % 0.0 /100WBC Absolute Seg Neuts 6.8 H (1.4-5.7) Band Neutrophils # 1.3 Lymphocytes # (Manual) 0.3 L (0.6-2.4) Monocytes # (Manual) 0.3 (0.0-0.8) Eosinophils # (Manual) 0.4 (0.0-0.7) Basophils # (Manual) 0.3 H (0.0-0.1) Nucleated RBCs # 0 K/uL Sodium 138 (136-145) mmol/L Potassium 3.4 L (3.5-5.1) mmol/L Chloride 106 (98-107) mmol/L Carbon Dioxide 20.2 L (21.0-32.0) mmol/L BUN 28 H (7.0-18.0) mg/dL Creatinine 1.3 H (0.6-1.0) mg/dL Est Cr Clr Drug Dosing 34.29 mL/min Estimated GFR (MDRD) 41.6 ml/min Glucose 281 H (74-106) mg/dL POC Glucose 266 H (60-110) mg/dL Calcium 8.5 (8.5-10.1) mg/dL Magnesium (1.8-2.4) mg/dL Total Bilirubin (0.2-1.0) mg/dL AST (15-37) IU/L ALT (14-63) IU/L Alkaline Phosphatase (46-116) U/L Total Protein (6.4-8.2) g/dL Albumin (3.4-5.0) g/dL Globulin (2.6-4.0) g/dL Albumin/Globulin Ratio (0.9-1.6) Gurmeet Results Last 24 Hours: Microbiology 05/09/19 20:42 Aerobic Blood Culture - Preliminary Blood - Venous NO GROWTH AFTER 2 DAYS Anaerobic Blood Culture - Preliminary NO GROWTH AFTER 2 DAYS 05/09/19 20:25 Aerobic Blood Culture - Preliminary Blood NO GROWTH AFTER 2 DAYS Anaerobic Blood Culture - Preliminary NO GROWTH AFTER 2 DAYS Med Orders - Current: Current Medications Acetaminophen (Tylenol) 650 mg PO Q4H PRN PRN Reason: Pain Cyclobenzaprine HCl (Flexeril) 10 mg PO BEDTIME PRN PRN Reason: Spasms Last Admin: 05/11/19 14:12 Dose: 10 mg Sodium Chloride (Normal Saline) 1,000 mls @ 125 mls/hr IV ASDIRECTED [facility] Last Admin: 05/11/19 23:33 Dose: 125 mls/hr Clindamycin Phosphate (Cleocin In D5w) 50 mls @ 100 mls/hr IV Q8H [facility] Last Admin: 05/12/19 00:25 Dose: 100 mls/hr Linezolid 600 mg/ Premix 300 mls @ 300 mls/hr IV Q12H [facility] Last Admin: 05/11/19 20:31 Dose: 300 mls/hr Insulin Aspart (Novolog) 0 unit SUBCUT TIDAC [facility]; Protocol Last Admin: 05/11/19 18:12 Dose: 9 unit Insulin Glargine (Lantus Solostar) 7 units SUBCUT BEDTIME [facility] Last Admin: 05/11/19 20:40 Dose: 7 units Lisinopril (Prinivil) 5 mg PO DAILY [facility] Last Admin: 05/11/19 14:12 Dose: 5 mg Nystatin (Nystop) 0 gm TOP TID [facility] Last Admin: 05/11/19 21:56 Dose: 1 applic Ondansetron HCl (Zofran Odt) 4 mg PO Q4H PRN PRN Reason: nausea, able to take PO Last Admin: 05/11/19 03:17 Dose: 4 mg Oxycodone HCl (Oxycodone) 5 mg PO Q4H PRN PRN Reason: Pain (mild 1-3) Last Admin: 05/11/19 23:32 Dose: 5 mg (Betamethasone (Dipropionate)) 0 each TOP BID PRN PRN Reason: Rash Temazepam (Restoril) 15 mg PO BEDTIME PRN PRN Reason: Sleep Discontinued Medications Diltiazem HCl (Diltiazem) 20 mg IVPUSH ONETIME ONE Stop: 05/10/19 14:34 Last Admin: 05/10/19 19:09 Dose: Not Given Diltiazem HCl (Diltiazem) 20 mg IVPUSH ONETIME ONE Stop: 05/10/19 14:47 Last Admin: 05/10/19 19:08 Dose: Not Given Fentanyl (Sublimaze) 50 mcg IVPUSH ONETIME ONE Stop: 05/09/19 20:19 Last Admin: 05/09/19 20:32 Dose: 50 mcg Fentanyl (Sublimaze) 50 mcg IVPUSH ONETIME ONE Stop: 05/09/19 21:26 Last Admin: 05/09/19 21:31 Dose: 50 mcg Fentanyl (Sublimaze) Confirm Administered Dose 250 mcg .ROUTE .STK-MED ONE Stop: 05/10/19 12:28 Heparin Sodium (Porcine) (Heparin Sodium) 5,000 units SUBCUT Q8H [facility] Last Admin: 05/10/19 08:00 Dose: Not Given Sodium Chloride (Normal Saline) 1,000 mls @ 999 mls/hr IV STAT ONE Stop: 05/09/19 21:18 Last Admin: 05/09/19 20:32 Dose: 999 mls/hr Vancomycin HCl 1.5 gm/ Premix 300 mls @ 300 mls/hr IV ASDIRECTED [facility] Vancomycin HCl 1.5 gm/ Sodium (Chloride) 500 mls @ 333.333 mls/hr IV ONETIME ONE Stop: 05/09/19 23:44 Vancomycin HCl 1 gm/Vancomycin HCl 500 mg/ Sodium Chloride 500 mls @ 333.333 mls/hr IV ONETIME ONE Stop: 05/09/19 23:44 Last Admin: 05/09/19 22:50 Dose: 333.333 mls/hr Clindamycin Phosphate (Cleocin In D5w) 50 mls @ 100 mls/hr IV Q8H [facility] Last Admin: 05/10/19 00:10 Dose: Not Given Vancomycin HCl 1.5 gm/ Premix 300 mls @ 200 mls/hr IV Q24H [facility] Insulin Human Regular 100 unit (/ Sodium Chloride) 100 mls @ 8 mls/hr IV TITRATE [facility]; Protocol Last Titration: 05/10/19 17:23 Dose: 8 unit/hr, 8 mls/hr Bupivacaine HCl/Epinephrine Bitart (Sensorc Mpf 0.25%-Epi 1:[id number]) Confirm Administered Dose 30 mls @ as directed .ROUTE .STK-MED ONE Stop: 05/10/19 13:28 Sodium Chloride (Normal Saline) 1,000 mls @ 999 mls/hr IV BOLUS [facility] Stop: 05/11/19 17:31 Last Admin: 05/10/19 17:35 Dose: 999 mls/hr Sodium Chloride (Normal Saline) 1,000 mls @ 999 mls/hr IV BOLUS ONE Stop: 05/11/19 00:04 Last Admin: 05/10/19 23:11 Dose: 999 mls/hr Insulin Aspart (Novolog) 0 unit SUBCUT TIDAC [facility]; Protocol Last Admin: 05/10/19 18:01 Dose: Not Given Insulin Aspart (Novolog) 15 unit SUBCUT ONETIME ONE Stop: 05/10/19 06:48 Last Admin: 05/10/19 07:12 Dose: 15 units Insulin Human Regular (Novolin R) 5 unit SUBCUT ONETIME ONE; Protocol Stop: 05/11/19 03:26 Last Admin: 05/11/19 04:01 Dose: 5 unit Midazolam HCl (Versed 1 Mg/Ml) Confirm Administered Dose 2 mg .ROUTE .STK-MED ONE Stop: 05/10/19 12:28 Morphine Sulfate (Morphine) 2 mg IVPUSH Q2H PRN PRN Reason: Pain (severe 7-10) Stop: 05/11/19 06:51 Ondansetron HCl (Zofran) Confirm Administered Dose 4 mg .ROUTE .STK-MED ONE Stop: 05/10/19 13:31 Oxycodone HCl (Oxycodone) 5 mg PO Q6H PRN PRN Reason: Pain Last Admin: 05/10/19 20:11 Dose: 5 mg Succinylcholine Chloride (Succinylcholine Chloride) Confirm Administered Dose 200 mg .ROUTE .STK-MED ONE Stop: 05/10/19 12:26 Sugammadex Sodium (Bridion) Confirm Administered Dose 200 mg .ROUTE .STK-MED ONE Stop: 05/10/19 13:27 Vancomycin HCl (Pharmacy To Dose - Vancomycin) 1 dose .XX ASDIRECTED [facility] - Exam Quality Assessment: No: Supplemental Oxygen General: Alert, Oriented, Cooperative, Other (Anxious) HEENT: Pupils Equal, Pupils Reactive, EOMI. No: Mucous Membr. Moist/[place] (Dry) Neck: Supple Lungs: Clear to Auscultation, Normal Respiratory Effort Cardiovascular: Regular Rate, Regular Rhythm GI/Abdominal Exam: Normal Bowel Sounds, Soft, No Distention, Other (Obese) Back Exam: No: Normal Inspection (Kyphosis) Extremities: Normal Inspection, No Pedal Edema Skin: Warm, Dry, Other (Current dressing clean and dry to back) Wound/Incisions: Dressing Dry and Intact Neurological: No New Focal Deficit Psy/Mental Status: Alert, Anxious - Problem List & Annotations (1) Cellulitis SNOMED Code(s): 598573965 Code(s): L03.90 - CELLULITIS, UNSPECIFIED Status: Acute Priority: High Current Visit: Yes Qualifiers: Site of cellulitis: trunk Site of cellulitis of trunk: back Qualified Code(s): L03.312 - Cellulitis of back [any part except buttock] Annotation/Comment:: MSSA (2) Systolic murmur SNOMED Code(s): 44905455 Code(s): R01.1 - CARDIAC MURMUR, UNSPECIFIED Status: Chronic Priority: Medium Current Visit: Yes (3) Diabetes mellitus type 2 in obese SNOMED Code(s): 61323479 Code(s): E11.69 - TYPE 2 DIABETES MELLITUS WITH OTHER SPECIFIED COMPLICATION ; E66.9 - OBESITY, UNSPECIFIED Status: Chronic Priority: High Current Visit: Yes Annotation/Comment:: Hemoglobin A1c 12.5%. (4) Hypertension SNOMED Code(s): 27294873 Code(s): I10 - ESSENTIAL (PRIMARY) HYPERTENSION Status: Chronic Priority : High Current Visit: Yes Qualifiers: Hypertension type: essential hypertension Qualified Code(s): I10 - Essential (primary) hypertension (5) Leukocytosis SNOMED Code(s): 240282887, 938503403 Code(s): D72.829 - ELEVATED WHITE BLOOD CELL COUNT, UNSPECIFIED Status: Resolved Priority: High Current Visit: Yes Qualifiers: Leukocytosis type: bandemia Qualified Code(s): D72.825 - Bandemia (6) Chronic kidney disease (CKD), stage III (moderate) SNOMED Code(s): 830863347 Code(s): N18.3 - CHRONIC KIDNEY DISEASE, STAGE 3 (MODERATE) Status: Chronic Priority: Medium Current Visit: Yes - Problem List Review Problem List Initiated/Reviewed/Updated: Yes - My Orders Last 24 Hours: My Active Orders 05/11/19 07:20 Transfer Patient (Change bed) [ADT] Routine 05/11/19 07:30 Insulin Aspart [NovoLOG] See Protocol SUBCUT TIDAC 05/11/19 21:00 Insulin Glarg,Human.Rec.Analog [LantUS Solostar] 7 units SUBCUT BEDTIME 05/11/19 Breakfast [employer] Diet [DIET] - Plan Plan:: The patient is currently postop day #2 for incision and drainage of large abscess to her back. Cultures have been positive for methicillin sensitive staph aureus. I discontinued the patient's Zyvox and have changed this to Levaquin 750 mg IV every 48 hours. The patient will also be continued on clindamycin. She has been encouraged to ambulate. Patient also be kept on insulin sliding scale. The patient also has been started on glargine 7 units subcutaneous on a daily basis to help with her glycemic control. I've ordered repeat laboratory studies. Patient also be kept on appropriate ADA diet. The patient has been encouraged to ambulate. The patient should be appropriate for discharge in 1-2 days depending upon improvement with her abscess. The patient also has been recommended and has been evaluated for wound VAC.
[2019-05-12] MEDS: Insulin Aspart 100 Units/ML 3 ML Pen SUBCUT SCH ×3 (06:50→18:39)
[2019-05-12] MEDS: Nystatin Topical Powder 15 GM Bottle TOP SCH ×3 (06:50→21:10)
[2019-05-12] MEDS: Lisinopril 5 MG Tab PO SCH (08:00)
[2019-05-12] MEDS: oxyCODONE 5 MG Tab PO PRN ×2 (08:07→13:03)
[2019-05-12] MEDS: Linezolid 600 MG in Premix Bag 1 BAG IV SCH (08:08)
[2019-05-12] MEDS ORDERED: Levofloxacin/Dextrose 5%-Water 750 MG in Premix Bag 1 BAG IV SCH ×2 (08:30→21:00)
[2019-05-12] MEDS: Sodium Chloride 0.9% 1,000 ML IV SCH ×2 (09:27→17:52)
[2019-05-12] MEDS: Potassium Bicarbonate 25 MEQ Tab.EFF PO SCH (09:47)
[2019-05-12] MEDS: LORazepam 0.5 MG Tab PO PRN (09:49)
[2019-05-12] MEDS: Acetaminophen 325 MG Tab PO PRN ×2 (09:49→21:08)
[2019-05-12] MEDS ORDERED: Lidocaine 1% with EPINEPHrine 1:100,000 20 ML MDV INJECT ONE (12:45)
--- NOTE | 2019-05-12 13:29 | PCM.SURGPN ---
- General Info Date of Service: 05/12/19 Functional Status: Reports: Pain Controlled - Review of Systems HEENT: Reports: No Symptoms Cardiovascular: Reports: No Symptoms - Patient Data Vitals - Most Recent: Last Vital Signs Temp 97.7 F 05/12/19 11:33 Pulse 68 05/12/19 11:33 Resp 18 05/12/19 11:33 BP 140/72 05/12/19 11:33 Pulse Ox 96 05/12/19 11:33 Weight - Most Recent: 210 lb 11.2 oz I&O - Last 24 Hours: Intake & Output 05/11/19 05/12/19 05/12/19 22:59 06:59 14:59 Intake Total 1643 1727 300 Output Total 550 Balance 1643 1177 300 Lab Results Last 24 Hrs: Laboratory Results - last 24 hr 05/11/19 05/11/19 05/12/19 Range/Units 17:21 20:39 05:15 WBC 9.33 (4.0-11.0) K/uL RBC 3.84 L (4.30-5.90) M/uL Hgb 10.3 L (12.0-16.0) g/dL Hct 31.6 L (36.0-46.0) % MCV 82.3 (80.0-98.0) fL MCH 26.8 L (27.0-32.0) pg MCHC 32.6 (31.0-37.0) g/dL RDW Std Deviation 42.3 (28.0-62.0) fl RDW Coeff of Lucho 14 (11.0-15.0) % Plt Count 227 (150-400) K/uL MPV 10.30 (7.40-12.00) fL Add Manual Diff YES Neutrophils % (Manual) 73 (48.0-80.0) % Band Neutrophils % 14 % Lymphocytes % (Manual) 3 L (16.0-40.0) % Monocytes % (Manual) 3 (0.0-15.0) % Eosinophils % (Manual) 4 (0.0-7.0) % Basophils % (Manual) 3 H (0.0-1.5) % Nucleated RBC % 0.0 /100WBC Absolute Seg Neuts 6.8 H (1.4-5.7) Band Neutrophils # 1.3 Lymphocytes # (Manual) 0.3 L (0.6-2.4) Monocytes # (Manual) 0.3 (0.0-0.8) Eosinophils # (Manual) 0.4 (0.0-0.7) Basophils # (Manual) 0.3 H (0.0-0.1) Nucleated RBCs # 0 K/uL Sodium (136-145) mmol/L Potassium (3.5-5.1) mmol/L Chloride (98-107) mmol/L Carbon Dioxide (21.0-32.0) mmol/L BUN (7.0-18.0) mg/dL Creatinine (0.6-1.0) mg/dL Est Cr Clr Drug Dosing mL/min Estimated GFR (MDRD) ml/min Glucose (74-106) mg/dL POC Glucose 254 H 267 H (60-110) mg/dL Calcium (8.5-10.1) mg/dL 05/12/19 05/12/19 05/12/19 Range/Units 05:15 06:19 11:28 WBC (4.0-11.0) K/uL RBC (4.30-5.90) M/uL Hgb (12.0-16.0) g/dL Hct (36.0-46.0) % MCV (80.0-98.0) fL MCH (27.0-32.0) pg MCHC (31.0-37.0) g/dL RDW Std Deviation (28.0-62.0) fl RDW Coeff of Lucho (11.0-15.0) % Plt Count (150-400) K/uL MPV (7.40-12.00) fL Add Manual Diff Neutrophils % (Manual) (48.0-80.0) % Band Neutrophils % % Lymphocytes % (Manual) (16.0-40.0) % Monocytes % (Manual) (0.0-15.0) % Eosinophils % (Manual) (0.0-7.0) % Basophils % (Manual) (0.0-1.5) % Nucleated RBC % /100WBC Absolute Seg Neuts (1.4-5.7) Band Neutrophils # Lymphocytes # (Manual) (0.6-2.4) Monocytes # (Manual) (0.0-0.8) Eosinophils # (Manual) (0.0-0.7) Basophils # (Manual) (0.0-0.1) Nucleated RBCs # K/uL Sodium 138 (136-145) mmol/L Potassium 3.4 L (3.5-5.1) mmol/L Chloride 106 (98-107) mmol/L Carbon Dioxide 20.2 L (21.0-32.0) mmol/L BUN 28 H (7.0-18.0) mg/dL Creatinine 1.3 H (0.6-1.0) mg/dL Est Cr Clr Drug Dosing 34.29 mL/min Estimated GFR (MDRD) 41.6 ml/min Glucose 281 H (74-106) mg/dL POC Glucose 266 H 276 H (60-110) mg/dL Calcium 8.5 (8.5-10.1) mg/dL Gurmeet Results Last 24 Hrs: Microbiology 05/10/19 13:29 Gram Stain - Preliminary Back - Middle Wound Culture - Final Staphylococcus Aureus Anaerobic Culture - Final NO ANAEROBES ISOLATED 05/09/19 20:42 Aerobic Blood Culture - Preliminary Blood - Venous NO GROWTH AFTER 2 DAYS Anaerobic Blood Culture - Preliminary NO GROWTH AFTER 2 DAYS 05/09/19 20:25 Aerobic Blood Culture - Preliminary Blood NO GROWTH AFTER 2 DAYS Anaerobic Blood Culture - Preliminary NO GROWTH AFTER 2 DAYS Med Orders - Current: Current Medications Acetaminophen (Tylenol) 650 mg PO Q4H PRN PRN Reason: Pain Last Admin: 05/12/19 09:49 Dose: 650 mg Cyclobenzaprine HCl (Flexeril) 10 mg PO BEDTIME PRN PRN Reason: Spasms Last Admin: 05/11/19 14:12 Dose: 10 mg Sodium Chloride (Normal Saline) 1,000 mls @ 125 mls/hr IV ASDIRECTED [facility] Last Admin: 05/12/19 09:27 Dose: 125 mls/hr Clindamycin Phosphate (Cleocin In D5w) 50 mls @ 100 mls/hr IV Q8H [facility] Last Admin: 05/12/19 09:30 Dose: 100 mls/hr Levofloxacin/Dextrose 750 mg/ (Premix) 150 mls @ 100 mls/hr IV Q48H [facility] Insulin Aspart (Novolog) 0 unit SUBCUT TIDAC [facility]; Protocol Last Admin: 05/12/19 13:01 Dose: 9 unit Insulin Glargine (Lantus Solostar) 7 units SUBCUT BEDTIME [facility] Last Admin: 05/11/19 20:40 Dose: 7 units Lisinopril (Prinivil) 5 mg PO DAILY [facility] Last Admin: 05/12/19 08:00 Dose: 5 mg Lorazepam (Ativan) 0.5 mg PO Q6H PRN PRN Reason: Anxiety Last Admin: 05/12/19 09:49 Dose: 0.5 mg Nystatin (Nystop) 0 gm TOP TID [facility] Last Admin: 05/12/19 06:50 Dose: 1 applic Ondansetron HCl (Zofran Odt) 4 mg PO Q4H PRN PRN Reason: nausea, able to take PO Last Admin: 05/11/19 03:17 Dose: 4 mg Oxycodone HCl (Oxycodone) 5 mg PO Q4H PRN PRN Reason: Pain (mild 1-3) Last Admin: 05/12/19 13:03 Dose: 5 mg (Betamethasone (Dipropionate)) 0 each TOP BID PRN PRN Reason: Rash Potassium Bicarbonate (Klor-Con Ef) 25 meq PO DAILY [facility] Last Admin: 05/12/19 09:47 Dose: 25 meq Temazepam (Restoril) 15 mg PO BEDTIME PRN PRN Reason: Sleep Discontinued Medications Diltiazem HCl (Diltiazem) 20 mg IVPUSH ONETIME ONE Stop: 05/10/19 14:34 Last Admin: 05/10/19 19:09 Dose: Not Given Diltiazem HCl (Diltiazem) 20 mg IVPUSH ONETIME ONE Stop: 05/10/19 14:47 Last Admin: 05/10/19 19:08 Dose: Not Given Fentanyl (Sublimaze) 50 mcg IVPUSH ONETIME ONE Stop: 05/09/19 20:19 Last Admin: 05/09/19 20:32 Dose: 50 mcg Fentanyl (Sublimaze) 50 mcg IVPUSH ONETIME ONE Stop: 05/09/19 21:26 Last Admin: 05/09/19 21:31 Dose: 50 mcg Fentanyl (Sublimaze) Confirm Administered Dose 250 mcg .ROUTE .STK-MED ONE Stop: 05/10/19 12:28 Heparin Sodium (Porcine) (Heparin Sodium) 5,000 units SUBCUT Q8H [facility] Last Admin: 05/10/19 08:00 Dose: Not Given Sodium Chloride (Normal Saline) 1,000 mls @ 999 mls/hr IV STAT ONE Stop: 05/09/19 21:18 Last Admin: 05/09/19 20:32 Dose: 999 mls/hr Vancomycin HCl 1.5 gm/ Premix 300 mls @ 300 mls/hr IV ASDIRECTED [facility] Vancomycin HCl 1.5 gm/ Sodium (Chloride) 500 mls @ 333.333 mls/hr IV ONETIME ONE Stop: 05/09/19 23:44 Vancomycin HCl 1 gm/Vancomycin HCl 500 mg/ Sodium Chloride 500 mls @ 333.333 mls/hr IV ONETIME ONE Stop: 05/09/19 23:44 Last Admin: 05/09/19 22:50 Dose: 333.333 mls/hr Clindamycin Phosphate (Cleocin In D5w) 50 mls @ 100 mls/hr IV Q8H [facility] Last Admin: 05/10/19 00:10 Dose: Not Given Vancomycin HCl 1.5 gm/ Premix 300 mls @ 200 mls/hr IV Q24H [facility] Linezolid 600 mg/ Premix 300 mls @ 300 mls/hr IV Q12H [facility] Last Admin: 05/12/19 08:08 Dose: 300 mls/hr Insulin Human Regular 100 unit (/ Sodium Chloride) 100 mls @ 8 mls/hr IV TITRATE [facility]; Protocol Last Titration: 05/10/19 17:23 Dose: 8 unit/hr, 8 mls/hr Bupivacaine HCl/Epinephrine Bitart (Sensorc Mpf 0.25%-Epi [id number]) Confirm Administered Dose 30 mls @ as directed .ROUTE .STK-MED ONE Stop: 05/10/19 13:28 Sodium Chloride (Normal Saline) 1,000 mls @ 999 mls/hr IV BOLUS [facility] Stop: 05/11/19 17:31 Last Admin: 05/10/19 17:35 Dose: 999 mls/hr Sodium Chloride (Normal Saline) 1,000 mls @ 999 mls/hr IV BOLUS ONE Stop: 05/11/19 00:04 Last Admin: 05/10/19 23:11 Dose: 999 mls/hr Levofloxacin/Dextrose 750 mg/ (Premix) 150 mls @ 100 mls/hr IV Q48H [facility] Last Admin: 05/12/19 09:30 Dose: Not Given Insulin Aspart (Novolog) 0 unit SUBCUT TIDAC [facility]; Protocol Last Admin: 05/10/19 18:01 Dose: Not Given Insulin Aspart (Novolog) 15 unit SUBCUT ONETIME ONE Stop: 05/10/19 06:48 Last Admin: 05/10/19 07:12 Dose: 15 units Insulin Human Regular (Novolin R) 5 unit SUBCUT ONETIME ONE; Protocol Stop: 05/11/19 03:26 Last Admin: 05/11/19 04:01 Dose: 5 unit Lidocaine/Epinephrine (Xylocaine 1% With Epinephrine 1:100,000) 20 ml INJECT ONETIME ONE Stop: 05/12/19 12:46 Last Admin: 05/12/19 12:45 Dose: 20 ml Midazolam HCl (Versed 1 Mg/Ml) Confirm Administered Dose 2 mg .ROUTE .STK-MED ONE Stop: 05/10/19 12:28 Morphine Sulfate (Morphine) 2 mg IVPUSH Q2H PRN PRN Reason: Pain (severe 7-10) Stop: 05/11/19 06:51 Ondansetron HCl (Zofran) Confirm Administered Dose 4 mg .ROUTE .STK-MED ONE Stop: 05/10/19 13:31 Oxycodone HCl (Oxycodone) 5 mg PO Q6H PRN PRN Reason: Pain Last Admin: 05/10/19 20:11 Dose: 5 mg Succinylcholine Chloride (Succinylcholine Chloride) Confirm Administered Dose 200 mg .ROUTE .STK-MED ONE Stop: 05/10/19 12:26 Sugammadex Sodium (Bridion) Confirm Administered Dose 200 mg .ROUTE .STK-MED ONE Stop: 05/10/19 13:27 Vancomycin HCl (Pharmacy To Dose - Vancomycin) 1 dose .XX ASDIRECTED [facility] - Exam Wound/Incisions: Healing Well, No Drainage (drsg changed, no expressible materials/odor) - Problem List Review Problem List Initiated/Reviewed/Updated: Yes - My Orders Last 24 Hours: Active Orders 24 hr Category Date Time Status Insulin Glarg,Human.Rec.Analog [LantUS Solostar] Med 05/11/19 21:00 Active 7 units SUBCUT BEDTIME LORazepam [Ativan] Med 05/12/19 09:07 Active 0.5 mg PO Q6H PRN Levofloxacin/Dextrose 5%-Water [Levaquin in D5W 750 MG/ Med 05/12/19 21:00 Active 150 ML] 750 mg Premix Bag 1 bag IV Q48H Potassium Bicarbonate [Klor-Con EF] Med 05/12/19 09:00 Active 25 meq PO DAILY Medication Orders Acetaminophen (Tylenol) 650 mg PO Q4H PRN PRN Reason: Pain Last Admin: 05/12/19 09:49 Dose: 650 mg Cyclobenzaprine HCl (Flexeril) 10 mg PO BEDTIME PRN PRN Reason: Spasms Last Admin: 05/11/19 14:12 Dose: 10 mg Sodium Chloride (Normal Saline) 1,000 mls @ 125 mls/hr IV ASDIRECTED [facility] Last Admin: 05/12/19 09:27 Dose: 125 mls/hr Infusion: 05/12/19 07:33 Dose: 125 mls/hr Admin: 05/11/19 23:33 Dose: 125 mls/hr Infusion: 05/11/19 22:17 Dose: 125 mls/hr Admin: 05/11/19 14:17 Dose: 125 mls/hr Infusion: 05/11/19 13:23 Dose: 125 mls/hr Admin: 05/11/19 05:23 Dose: 125 mls/hr Infusion: 05/11/19 03:10 Dose: 125 mls/hr Admin: 05/10/19 19:10 Dose: 125 mls/hr Infusion: 05/10/19 17:18 Dose: 125 mls/hr Admin: 05/10/19 09:18 Dose: 125 mls/hr Infusion: 05/10/19 08:44 Dose: 100 mls/hr Admin: 05/09/19 22:44 Dose: 100 mls/hr Clindamycin Phosphate (Cleocin In D5w) 50 mls @ 100 mls/hr IV Q8H [facility] Last Admin: 05/12/19 09:30 Dose: 100 mls/hr Infusion: 05/12/19 00:55 Dose: 100 mls/hr Admin: 05/12/19 00:25 Dose: 100 mls/hr Infusion: 05/11/19 17:03 Dose: 100 mls/hr Admin: 05/11/19 16:33 Dose: 100 mls/hr Infusion: 05/11/19 09:15 Dose: 100 mls/hr Admin: 05/11/19 08:45 Dose: 100 mls/hr Infusion: 05/11/19 00:42 Dose: 100 mls/hr Admin: 05/11/19 00:12 Dose: 100 mls/hr Infusion: 05/10/19 18:08 Dose: 100 mls/hr Admin: 05/10/19 17:38 Dose: 100 mls/hr Infusion: 05/10/19 10:44 Dose: 100 mls/hr Admin: 05/10/19 10:14 Dose: 100 mls/hr Infusion: 05/10/19 01:36 Dose: 100 mls/hr Admin: 05/10/19 01:06 Dose: 100 mls/hr Levofloxacin/Dextrose 750 mg/ (Premix) 150 mls @ 100 mls/hr IV Q48H [facility] Insulin Aspart (Novolog) 0 unit SUBCUT TIDAC [facility]; Protocol Last Admin: 05/12/19 13:01 Dose: 9 unit Admin: 05/12/19 06:50 Dose: 9 unit Admin: 05/11/19 18:12 Dose: 9 unit Admin: 05/11/19 12:58 Dose: 9 unit Admin: 05/11/19 07:39 Dose: 6 unit Insulin Glargine (Lantus Solostar) 7 units SUBCUT BEDTIME [facility] Last Admin: 05/11/19 20:40 Dose: 7 units Lisinopril (Prinivil) 5 mg PO DAILY [facility] Last Admin: 05/12/19 08:00 Dose: 5 mg Admin: 05/11/19 14:12 Dose: 5 mg Admin: 05/11/19 08:49 Dose: Admin: 05/10/19 12:06 Dose: Lorazepam (Ativan) 0.5 mg PO Q6H PRN PRN Reason: Anxiety Last Admin: 05/12/19 09:49 Dose: 0.5 mg Nystatin (Nystop) 0 gm TOP TID [facility] Last Admin: 05/12/19 06:50 Dose: 1 applic Admin: 05/11/19 21:56 Dose: 1 applic Admin: 05/11/19 16:56 Dose: 1 applic Admin: 05/11/19 14:54 Dose: Not Given Admin: 05/11/19 06:43 Dose: 1 applic Admin: 05/10/19 21:06 Dose: 1 applic Admin: 05/10/19 17:33 Dose: Not Given Ondansetron HCl (Zofran Odt) 4 mg PO Q4H PRN PRN Reason: nausea, able to take PO Last Admin: 05/11/19 03:17 Dose: 4 mg Oxycodone HCl (Oxycodone) 5 mg PO Q4H PRN PRN Reason: Pain (mild 1-3) Last Admin: 05/12/19 13:03 Dose: 5 mg Admin: 05/12/19 08:07 Dose: 5 mg Admin: 05/11/19 23:32 Dose: 5 mg Admin: 05/11/19 06:30 Dose: 5 mg Admin: 05/11/19 00:30 Dose: 5 mg (Betamethasone (Dipropionate)) 0 each TOP BID PRN PRN Reason: Rash Potassium Bicarbonate (Klor-Con Ef) 25 meq PO DAILY [facility] Last Admin: 05/12/19 09:47 Dose: 25 meq Temazepam (Restoril) 15 mg PO BEDTIME PRN PRN Reason: Sleep - Assessment Assessment (Free Text/Narrative):: NPWT applied; wound looked good; ok to go home on abx, and percocet 5/325, one tab po q 4 -6, prn pain, disp #30; i will see her fu on wednesday; tks for the consult and take parts in her care; - Plan Plan (Free Text/Narrative):: NPWT applied; wound looked good; ok to go home on abx, and percocet 5/325, one tab po q 4 -6, prn pain, disp #30; i will see her fu on wednesday; tks for the consult and take parts in her care;
[2019-05-12] MEDS ORDERED: Insulin Glargine,Human Rec. Analog 100 Units/ML 3 ML Pen SUBCUT SCH (21:00)
[2019-05-13] MEDS: oxyCODONE 5 MG Tab PO PRN ×2 (00:02→11:05)
[2019-05-13] MEDS: Clindamycin Phosphate in D5W 50 ML IV SCH ×2 (00:52→08:54)
[2019-05-13] MEDS: Ondansetron 4 MG Tab.DIS PO PRN ×2 (01:08→09:05)
[2019-05-13] MEDS: Nystatin Topical Powder 15 GM Bottle TOP SCH ×2 (06:18→15:24)
[2019-05-13] MEDS: Insulin Aspart 100 Units/ML 3 ML Pen SUBCUT SCH ×2 (08:49→12:42)
[2019-05-13] MEDS: Lisinopril 5 MG Tab PO SCH (08:52)
[2019-05-13] MEDS: Acetaminophen 325 MG Tab PO PRN (09:07)
[2019-05-13] MEDS: Potassium Bicarbonate 25 MEQ Tab.EFF PO SCH (09:19)
--- NOTE | 2019-05-13 09:53 | PCM.DCSUM1 ---
Discharge Summary - Hospital Course Diagnosis: Stroke: No - Discharge Data Discharge Date: 05/13/19 Discharge Disposition: Home, Self-Care 01 Condition: Fair - Discharge Diagnosis/Problem(s) (1) Cellulitis SNOMED Code(s): 934881342 ICD Code: L03.90 - CELLULITIS, UNSPECIFIED Status: Acute Priority: High Current Visit: Yes Problem Details: MSSA Qualifiers: Site of cellulitis: trunk Site of cellulitis of trunk: back Qualified Code(s): L03.312 - Cellulitis of back [any part except buttock] (2) Systolic murmur SNOMED Code(s): 14478248 ICD Code: R01.1 - CARDIAC MURMUR, UNSPECIFIED Status: Chronic Priority: Medium Current Visit: Yes (3) Diabetes mellitus type 2 in obese SNOMED Code(s): 38113210 ICD Code: E11.69 - TYPE 2 DIABETES MELLITUS WITH OTHER SPECIFIED COMPLICATION ; E66.9 - OBESITY, UNSPECIFIED Status: Chronic Priority: High Current Visit: Yes Problem Details: Hemoglobin A1c 12.5%. (4) Hypertension SNOMED Code(s): 84593623 ICD Code: I10 - ESSENTIAL (PRIMARY) HYPERTENSION Status: Chronic Priority : High Current Visit: Yes Qualifiers: Hypertension type: essential hypertension Qualified Code(s): I10 - Essential (primary) hypertension (5) Leukocytosis SNOMED Code(s): 999555615, 250752104 ICD Code: D72.829 - ELEVATED WHITE BLOOD CELL COUNT, UNSPECIFIED Status: Resolved Priority: High Current Visit: Yes Qualifiers: Leukocytosis type: bandemia Qualified Code(s): D72.825 - Bandemia (6) Chronic kidney disease (CKD), stage III (moderate) SNOMED Code(s): 829647645 ICD Code: N18.3 - CHRONIC KIDNEY DISEASE, STAGE 3 (MODERATE) Status: Chronic Priority: Medium Current Visit: Yes - Patient Summary/Data Operative Procedure(s) Performed: i/d and bx of Back abscess Consults: Consultations 05/10/19 06:50 Consult to Diabetic Nurse Specialist [CONS] Routine 05/10/19 07:19 Consult to Physician [CONS] Urgent 05/10/19 14:37 Consult to Physician [CONS] Routine 05/10/19 14:41 Consult to Wound Care Services [CONS] Routine Hospital Course: The patient is a 63-year-old lady who had presented to the emergency department with a complaint of infection on her back. Patient's daughter was with her. The patient is a diabetic with poor control. The patient became concerned when she had a reddened firm area of cellulitis under her bra line and became concerned when the area cellulitis had massively worsened. The patient said that this had started as a small bump approximately 2 weeks ago. The patient had continued to worsen. The patient says that she has fever and chills. She has had sweating. The patient upon admission initially had a white blood cell count of 28,000 with significant bandemia. In the emergency department the patient was started on antibiotics in particular vancomycin. The patient was changed to linezolid as this has a better tissue penetration with regards to her large abscess. An operative report on May 10, 2019 showed to be 2 distinct abscesses connected by tunnel with left side measuring approximately 15 x 10 cm and right side approximately 12 x 10 cm. It had also been draining purulent material. The patient also spent 1 day in the intensive care unit due to postoperative complications to include rapid heart rate and depression of sensorium. This cleared quickly. Upon admission the patient was consulted with general surgery where the patient underwent incision and drainage with massive abscess on her back. Cultures were obtained which grew out methicillin sensitive staph aureus that was sensitive to linezolid. The patient was also noted in the interview and with family member discussion that she has had very poor control of her diabetes. The patient's hemoglobin A1c was noted to be at 12.5%. By day of discharge the patient have better glycemic control with a blood glucose of 182. Was concern with lowering the patient's glucose too quickly to avoid symptoms of hypoglycemia. Initially the patient had to be started on insulin drip prior to surgery and this was discontinued 2 days later and she had been started on glargine and NovoLog. The patient had been started on Lantus 15 units at night along with 5 units NovoLog at each meal. The patient had been evaluated by optical glass wet inspector. The patient also had been supplied with a wound VAC with regards to her I&D for her back abscess. Overall, the patient had continued to improve through her course of hospitalization. The patient had continued to tolerate both the IV Zyvox and IV clindamycin. The patient had been supplied with wound VAC and instructions and she also had been recommended to follow-up with surgery. The patient said that she needed to have refills on all of her medications. See discharge medication list. The patient had a blood pressure of 183/88 mmHg and she had been previously on lisinopril 5 mg by mouth daily. This was changed to lisinopril/hydrochlorothiazide at 10/12.5 mg daily. This may need to be adjusted by her primary care physician. The patient is also recommended to continue with her diabetic diet as tolerated. She is also to have activity as tolerated. The patient has been hemodynamically stable and she is discharged from acute hospitalization with recommendations listed above. - Patient Instructions Diet: Usual Diet as Tolerated, Diabetic Diet Activity: As Tolerated - Discharge Plan *PRESCRIPTION DRUG MONITORING PROGRAM REVIEWED*: No *COPY OF PRESCRIPTION DRUG MONITORING REPORT IN PATIENT ALEX: No Prescriptions/Med Rec: ALPRAZolam [Xanax] 0.5 mg PO Q6H PRN #15 tablet PRN Reason: Anxiety Hydrocodone/Acetaminophen [Hydrocodon-Acetaminophen 5-325] 1 each PO Q6H PRN # 20 tablet PRN Reason: Pain (Moderate 4-6) Insulin Aspart [NovoLOG] 5 unit SUBCUT TIDAC 30 Days #6 pen Insulin Glarg,Human.Rec.Analog [Lantus Solostar] 15 units SUBCUT BEDTIME 30 Days #3 pen Linezolid [Zyvox] 600 mg PO Q12H #30 tab Lisinopril/Hydrochlorothiazide [Lisinopril-HCTZ 10-12.5 MG] 1 tab PO DAILY #30 tablet Ondansetron [Zofran ODT] 4 mg PO Q4H PRN #30 tab.dis PRN Reason: nausea, able to take PO Home Medications: Home Meds Betamethasone Dipropionate 0.05 mg TOP BID PRN 05/09/19 [History] Cyclobenzaprine [Flexeril] 10 mg PO BEDTIME PRN 05/09/19 [History] Nystatin 15 mg TOP TID 05/09/19 [History] ALPRAZolam [Xanax] 0.5 mg PO Q6H PRN #15 tablet 05/13/19 [Rx] Hydrocodone/Acetaminophen [Hydrocodon-Acetaminophen 5-325] 1 each PO Q6H PRN # 20 tablet 05/13/19 [Rx] Insulin Aspart [NovoLOG] 5 unit SUBCUT TIDAC 30 Days #6 pen 05/13/19 [Rx] Insulin Glarg,Human.Rec.Analog [Lantus Solostar] 15 units SUBCUT BEDTIME 30 Days #3 pen 05/13/19 [Rx] Linezolid [Zyvox] 600 mg PO Q12H #30 tab 05/13/19 [Rx] Lisinopril/Hydrochlorothiazide [Lisinopril-HCTZ 10-12.5 MG] 1 tab PO DAILY #30 tablet 05/13/19 [Rx] Ondansetron [Zofran ODT] 4 mg PO Q4H PRN #30 tab.dis 05/13/19 [Rx] Oxygen Therapy Mode: Room Air Patient Handouts: Type 2 Diabetes Mellitus, Diagnosis, Adult, Cellulitis, Adult Referrals: Mauro Salmon MD [Physician] - 05/18/19 10:45 am (Arrive at 1030 with photo ID and insurance card) Luis Arredondo MD [Primary Care Provider] - 05/24/19 1:00 pm - Discharge Summary/Plan Comment DC Time >30 min.: Yes - General Info Date of Service: 05/13/19 Admission Dx/Problem (Free Text: Admission Diagnosis/Problem Admission Diagnosis/Problem Cellulitis, back, poorly controlled diabetes mellitus type 2 Subjective Update: Doing much better today. Feels like she can go home. Functional Status: Reports: Pain Controlled - Review of Systems General: Reports: No Symptoms HEENT: Reports: No Symptoms Pulmonary: Reports: No Symptoms Cardiovascular: Reports: No Symptoms Gastrointestinal: Reports: No Symptoms Genitourinary: Reports: No Symptoms Musculoskeletal: Reports: No Symptoms Skin: Reports: Other Neurological: Reports: No Symptoms Psychiatric: Reports: No Symptoms - Patient Data Vitals - Most Recent: Last Vital Signs Temp 36.4 C 05/13/19 07:36 Pulse 61 05/13/19 07:36 Resp 17 05/13/19 07:36 BP 183/88 H 05/13/19 08:52 Pulse Ox 95 05/13/19 04:00 Weight - Most Recent: 95.481 kg I&O - Last 24 hours: Intake & Output 05/12/19 05/13/19 05/13/19 22:59 06:59 14:59 Intake Total 1954 910 Output Total 1200 900 Balance 754 10 Lab Results - Last 24 hrs: Laboratory Results - last 24 hr 05/12/19 05/12/19 05/12/19 Range/Units 11:28 15:49 17:50 POC Glucose 276 H 237 H 246 H (60-110) mg/dL 05/12/19 05/13/19 Range/Units 20:15 05:55 POC Glucose 225 H 182 H (60-110) mg/dL THANG Results - Last 24 hrs: Microbiology 05/09/19 20:42 Aerobic Blood Culture - Preliminary Blood - Venous NO GROWTH AFTER 3 DAYS Anaerobic Blood Culture - Preliminary NO GROWTH AFTER 3 DAYS 05/09/19 20:25 Aerobic Blood Culture - Preliminary Blood NO GROWTH AFTER 3 DAYS Anaerobic Blood Culture - Preliminary NO GROWTH AFTER 3 DAYS 05/10/19 13:29 Gram Stain - Preliminary Back - Middle Wound Culture - Final Staphylococcus Aureus Anaerobic Culture - Final NO ANAEROBES ISOLATED Med Orders - Current: Current Medications Acetaminophen (Tylenol) 650 mg PO Q4H PRN PRN Reason: Pain Last Admin: 05/13/19 09:07 Dose: 650 mg Cyclobenzaprine HCl (Flexeril) 10 mg PO BEDTIME PRN PRN Reason: Spasms Last Admin: 05/11/19 14:12 Dose: 10 mg Sodium Chloride (Normal Saline) 1,000 mls @ 125 mls/hr IV ASDIRECTED [facility] Last Admin: 05/12/19 17:52 Dose: 125 mls/hr Clindamycin Phosphate (Cleocin In D5w) 50 mls @ 100 mls/hr IV Q8H [facility] Last Admin: 05/13/19 08:54 Dose: 100 mls/hr Levofloxacin/Dextrose 750 mg/ (Premix) 150 mls @ 100 mls/hr IV Q48H [facility] Last Admin: 05/12/19 21:14 Dose: 100 mls/hr Insulin Aspart (Novolog) 0 unit SUBCUT TIDAC [facility]; Protocol Last Admin: 05/13/19 08:49 Dose: 3 unit Insulin Glargine (Lantus Solostar) 15 units SUBCUT BEDTIME [facility] Last Admin: 05/12/19 21:09 Dose: 15 unit Lisinopril (Prinivil) 5 mg PO DAILY [facility] Last Admin: 05/13/19 08:52 Dose: 5 mg Lorazepam (Ativan) 0.5 mg PO Q6H PRN PRN Reason: Anxiety Last Admin: 05/12/19 09:49 Dose: 0.5 mg Nystatin (Nystop) 0 gm TOP TID [facility] Last Admin: 05/13/19 06:18 Dose: Not Given Ondansetron HCl (Zofran Odt) 4 mg PO Q4H PRN PRN Reason: nausea, able to take PO Last Admin: 05/13/19 09:05 Dose: 4 mg Oxycodone HCl (Oxycodone) 5 mg PO Q4H PRN PRN Reason: Pain (mild 1-3) Last Admin: 05/13/19 00:02 Dose: 5 mg (Betamethasone (Dipropionate)) 0 each TOP BID PRN PRN Reason: Rash Potassium Bicarbonate (Klor-Con Ef) 25 meq PO DAILY [facility] Last Admin: 05/13/19 09:19 Dose: 25 meq Temazepam (Restoril) 15 mg PO BEDTIME PRN PRN Reason: Sleep Discontinued Medications Diltiazem HCl (Diltiazem) 20 mg IVPUSH ONETIME ONE Stop: 05/10/19 14:34 Last Admin: 05/10/19 19:09 Dose: Not Given Diltiazem HCl (Diltiazem) 20 mg IVPUSH ONETIME ONE Stop: 05/10/19 14:47 Last Admin: 05/10/19 19:08 Dose: Not Given Fentanyl (Sublimaze) 50 mcg IVPUSH ONETIME ONE Stop: 05/09/19 20:19 Last Admin: 05/09/19 20:32 Dose: 50 mcg Fentanyl (Sublimaze) 50 mcg IVPUSH ONETIME ONE Stop: 05/09/19 21:26 Last Admin: 05/09/19 21:31 Dose: 50 mcg Fentanyl (Sublimaze) Confirm Administered Dose 250 mcg .ROUTE .STK-MED ONE Stop: 05/10/19 12:28 Heparin Sodium (Porcine) (Heparin Sodium) 5,000 units SUBCUT Q8H [facility] Last Admin: 05/10/19 08:00 Dose: Not Given Sodium Chloride (Normal Saline) 1,000 mls @ 999 mls/hr IV STAT ONE Stop: 05/09/19 21:18 Last Admin: 05/09/19 20:32 Dose: 999 mls/hr Vancomycin HCl 1.5 gm/ Premix 300 mls @ 300 mls/hr IV ASDIRECTED [facility] Vancomycin HCl 1.5 gm/ Sodium (Chloride) 500 mls @ 333.333 mls/hr IV ONETIME ONE Stop: 05/09/19 23:44 Vancomycin HCl 1 gm/Vancomycin HCl 500 mg/ Sodium Chloride 500 mls @ 333.333 mls/hr IV ONETIME ONE Stop: 05/09/19 23:44 Last Admin: 05/09/19 22:50 Dose: 333.333 mls/hr Clindamycin Phosphate (Cleocin In D5w) 50 mls @ 100 mls/hr IV Q8H [facility] Last Admin: 05/10/19 00:10 Dose: Not Given Vancomycin HCl 1.5 gm/ Premix 300 mls @ 200 mls/hr IV Q24H [facility] Linezolid 600 mg/ Premix 300 mls @ 300 mls/hr IV Q12H [facility] Last Admin: 05/12/19 08:08 Dose: 300 mls/hr Insulin Human Regular 100 unit (/ Sodium Chloride) 100 mls @ 8 mls/hr IV TITRATE [facility]; Protocol Last Titration: 05/10/19 17:23 Dose: 8 unit/hr, 8 mls/hr Bupivacaine HCl/Epinephrine Bitart (Sensorc Mpf 0.25%-Epi 1:433610) Confirm Administered Dose 30 mls @ as directed .ROUTE .STK-MED ONE Stop: 05/10/19 13:28 Sodium Chloride (Normal Saline) 1,000 mls @ 999 mls/hr IV BOLUS [facility] Stop: 05/11/19 17:31 Last Admin: 05/10/19 17:35 Dose: 999 mls/hr Sodium Chloride (Normal Saline) 1,000 mls @ 999 mls/hr IV BOLUS ONE Stop: 05/11/19 00:04 Last Admin: 05/10/19 23:11 Dose: 999 mls/hr Levofloxacin/Dextrose 750 mg/ (Premix) 150 mls @ 100 mls/hr IV Q48H [facility] Last Admin: 05/12/19 09:30 Dose: Not Given Insulin Aspart (Novolog) 0 unit SUBCUT TIDAC [facility]; Protocol Last Admin: 05/10/19 18:01 Dose: Not Given Insulin Aspart (Novolog) 15 unit SUBCUT ONETIME ONE Stop: 05/10/19 06:48 Last Admin: 05/10/19 07:12 Dose: 15 units Insulin Glargine (Lantus Solostar) 7 units SUBCUT BEDTIME [facility] Last Admin: 05/11/19 20:40 Dose: 7 units Insulin Human Regular (Novolin R) 5 unit SUBCUT ONETIME ONE; Protocol Stop: 05/11/19 03:26 Last Admin: 05/11/19 04:01 Dose: 5 unit Lidocaine/Epinephrine (Xylocaine 1% With Epinephrine 1:100,000) 20 ml INJECT ONETIME ONE Stop: 05/12/19 12:46 Last Admin: 05/12/19 12:45 Dose: 20 ml Midazolam HCl (Versed 1 Mg/Ml) Confirm Administered Dose 2 mg .ROUTE .STK-MED ONE Stop: 05/10/19 12:28 Morphine Sulfate (Morphine) 2 mg IVPUSH Q2H PRN PRN Reason: Pain (severe 7-10) Stop: 05/11/19 06:51 Ondansetron HCl (Zofran) Confirm Administered Dose 4 mg .ROUTE .STK-MED ONE Stop: 05/10/19 13:31 Oxycodone HCl (Oxycodone) 5 mg PO Q6H PRN PRN Reason: Pain Last Admin: 05/10/19 20:11 Dose: 5 mg Senna/Docusate Sodium (Senna Plus) 1 tab PO ASDIRECTED [facility] Stop: 05/13/19 08:20 Last Admin: 05/13/19 08:52 Dose: 1 tab Succinylcholine Chloride (Succinylcholine Chloride) Confirm Administered Dose 200 mg .ROUTE .STK-MED ONE Stop: 05/10/19 12:26 Sugammadex Sodium (Bridion) Confirm Administered Dose 200 mg .ROUTE .STK-MED ONE Stop: 05/10/19 13:27 Vancomycin HCl (Pharmacy To Dose - Vancomycin) 1 dose .XX ASDIRECTED [facility] - Exam Quality Assessment: Denies: Supplemental Oxygen General: Reports: Alert, Oriented, Cooperative HEENT: Reports: Pupils Equal, Pupils Reactive, EOMI, Mucous Membr. Moist/[place] Neck: Reports: Supple, Trachea Midline Lungs: Reports: Clear to Auscultation, Normal Respiratory Effort Cardiovascular: Reports: Regular Rate, Regular Rhythm GI/Abdominal Exam: Normal Bowel Sounds, Soft, No Distention Back Exam: Reports: Normal Inspection, Full Range of Motion Extremities: Normal Inspection, No Pedal Edema Skin: Reports: Warm, Dry Wound/Incisions: Reports: Healing Well, Dressing Dry and Intact Neurological: Reports: No New Focal Deficit Psy/Mental Status: Reports: Alert, Normal Affect
[2019-05-13] MEDS ORDERED: Lidocaine 1% with EPINEPHrine 1:100,000 20 ML MDV INJECT ONE (10:58)
[2019-05-13] MEDS: LORazepam 0.5 MG Tab PO PRN (11:16)
== END 2019-05-13 16:10 | disposition home or self-care (01) | DRG 603 ==
LOC: MW.ED 19:44 → MW.MS 21:14 → MW.ICU 05-10 15:17 → MW.MS 05-10 19:02 → MW.ICU 05-10 19:05 → MW.MS 05-11 12:04
PROVIDERS: ADMIT Internal Medicine; ATTEND Internal Medicine
PROC: 0H96XZZ Drainage of Back Skin, External Approach (ICD-10-PCS; principal; 2019-05-10)
DX: L03.312 Cellulitis of back [any part except buttock and flank] (principal); N17.9 Acute kidney failure, unspecified; I97.89 Other postprocedural complications and disorders of the circulatory system, not elsewhere classified; R01.1 Cardiac murmur, unspecified; E66.9 Obesity, unspecified; N18.3 Chronic kidney disease, stage 3 (moderate); E11.65 Type 2 diabetes mellitus with hyperglycemia; L02.212 Cutaneous abscess of back [any part, except buttock and flank]; J45.909 Unspecified asthma, uncomplicated; M19.90 Unspecified osteoarthritis, unspecified site; F41.9 Anxiety disorder, unspecified; E66.01 Morbid (severe) obesity due to excess calories; I12.9 Hypertensive chronic kidney disease with stage 1 through stage 4 chronic kidney disease, or unspecified chronic kidney disease; E11.22 Type 2 diabetes mellitus with diabetic chronic kidney disease; R41.0 Disorientation, unspecified; E87.6 Hypokalemia; I95.9 Hypotension, unspecified; Y82.8 Other medical devices associated with adverse incidents; Y83.8 Other surgical procedures as the cause of abnormal reaction of the patient, or of later complication, without mention of misadventure at the time of the procedure; Z79.4 Long term (current) use of insulin; Z86.73 Personal history of transient ischemic attack (TIA), and cerebral infarction without residual deficits; Z98.890 Other specified postprocedural states; Z88.0 Allergy status to penicillin; Z91.040 Latex allergy status; Z91.013 Allergy to seafood; Z68.39 Body mass index [BMI] 39.0-39.9, adult
CPT/HCPCS: 00300; 36415; 36600; 71046; 71046-26; 80048; 80051; 80053; 81003; 82009; 82310; 82803; 82962; 83036; 83605; 83735; 84439; 84443; 84481; 84484; 85025; 87040; 87070; 87075; 87077; 87186; 87205; 88304; 93005; 96361; 96374; 96376; 99283; 99284-25; A9270-GY; J0330; J1815-GY; J1956; J2020; J2250; J2405; J3010; J3370; J3490; J7030; J7040

== ENCOUNTER 2020-01-08 15:20 | Emergency (ER) | payer OTHER ==
[2020-01-08] MEDS ORDERED: Sodium Chloride 0.9% 1,000 ML IV ONE (15:52)
[2020-01-08] MEDS ORDERED: Morphine 10 MG/ML Syringe IVPUSH ONE ×2 (16:18→20:22)
--- NOTE | 2020-01-08 16:44 | EDM.PDOC ---
ED [facility] GENERAL MEDICAL PROBLEM - General Chief Complaint: Skin Complaint Stated Complaint: INFECTION Time Seen by Provider: 01/08/20 16:41 Source of Information: Reports: Patient, Provider History Limitations: Reports: No Limitations - History of Present Illness INITIAL COMMENTS - FREE TEXT/NARRATIVE: Patient 64-year-old female with past medical history of diabetes presenting with chief complaint of skin abscess. Patient was referred here from PCP clinic for abscess on the left gluteal area. Patient had an I&D per done on Wednesday. Patient was in her initiated on antibiotics. Patient reports compliance with her clindamycin. Patient reports increasing pain and swelling to that area over the weekend. Pain radiates to the anal area. Nothing makes pain better or worse. Pain is constant. Patient denies any fevers, chills, systemic symptoms. Pain is worse when she applies pressure to that side. Referred from PCP for concerns about worsening of infection. Pmhx: Diabetes Pshx: Previous I&D last year Family Hx: noncontributory Smoking history? no Etoh use? none Drug use? none In addition to that documented in the HPI above, the additional ROS was obtained : Constitutional: Denies fevers or chills Eyes: Denies vision changes ENMT: Denies sore throat CV: Denies chest pain Resp: Denies SOB GI: Denies vomiting or diarrhea : Denies painful urination MSK: Denies recent trauma Skin: Denies new rashes Neuro: Denies new numbness or tingling or weakness Endocrine: Denies unexpected weight loss Heme: Denies bleeding disorders I have reviewed the triage vital signs Const: Well nourished, well developed, appears stated age Eyes: PERRL, no conjunctival injection HENT: NCAT, Neck supple without meningismus CV: RRR, Warm, well-perfused extremities RESP: CTAB, Unlabored respiratory effort GI: soft, non-tender, non-distended, no masses MSK: No gross deformities appreciated 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 Warm, dry. 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 Sensation and motor function of extremities grossly intact. Psych: Appropriate mood and affect Assessment and plan: Patient is a 64-year-old female presenting with worsening abscess to the gluteal and anal area. Patient hemodynamically stable on arrival to the ER. Patient afebrile. Patient had elevated white blood cell count but no evidence of sepsis. Given patient's chronic kidney disease, CT scan was performed without contrast to evaluate extent of abscess. CT scan demonstrates abscess and infection extending to the rectal area. On-call general surgeon Dr. Zuniga was called to evaluate for possible operative drainage of this abscess and management with IV antibiotics. Evaluated patient and recommended transfer to facility with a colorectal surgeon available. He recommended that the patient go to [facility] as they have colorectal available. I discussed the case with general surgeon on- call at [facility] as well as hospitalist. The hospitalist agreed to accept the patient and will consult colorectal surgery once the patient has arrived. Management during hospital stay included 1 L IV fluids, 1 dose of IV antibiotics , morphine for pain management. IV antibiotics based on most recent culture from the patient's wound from Wednesday. Given the non-emergent basis for surgical intervention, patient will be transferred via ground ambulance to [place] where she will be admitted to the hospital for IV antibiotics and possible operative management. I discussed at length with the patient and patient's daughter via phone regarding next steps in care. All questions were addressed and answered. Patient agrees with plan and transfer decision. Left Upper Buttock Pain Score (Numeric/FACES): 10 - Related Data Allergies Allergy/AdvReac Type Severity Reaction Status Date / Time Fish Containing Products Allergy Anaphylactic Verified 01/08/20 15:37 Shock latex Allergy Rash Verified 01/08/20 15:37 Penicillins Allergy Rash Verified 01/08/20 15:37 Home Meds: Home Meds Nystatin 15 mg TOP TID 05/09/19 [History] Hydrocodone/Acetaminophen [Hydrocodon-Acetaminophen 5-325] 1 each PO Q6H PRN # 20 tablet 05/13/19 [Rx] Insulin Aspart [NovoLOG] 5 unit SUBCUT TIDAC 30 Days #6 pen 05/13/19 [Rx] Insulin Glarg,Human.Rec.Analog [Lantus Solostar] 15 units SUBCUT BEDTIME 30 Days #3 pen 05/13/19 [Rx] Lisinopril/Hydrochlorothiazide [Lisinopril-HCTZ 10-12.5 MG] 1 tab PO DAILY #30 tablet 05/13/19 [Rx] Ondansetron [Zofran ODT] 4 mg PO Q4H PRN #30 tab.dis 05/13/19 [Rx] Past Medical History HEENT History: Reports: None Cardiovascular History: Reports: Hypertension Respiratory History: Reports: Asthma Gastrointestinal History: Reports: None Genitourinary History: Reports: None 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: Musculoskeletal History: Reports: Arthritis Neurological History: Reports: None Psychiatric History: Reports: Anxiety, Depression Endocrine/Metabolic History: Reports: Diabetes, Type II Hematologic History: Reports: None Immunologic History: Reports: None Dermatologic History: Reports: Other (See Below) Other Dermatologic History: lump on the back - Infectious Disease History Infectious Disease History: Reports: Chicken Pox - Past Surgical History Head Surgeries/Procedures: Reports: None Cardiovascular Surgical History: Reports: None Respiratory Surgical History: Reports: None Female Surgical History: Reports: Section Endocrine Surgical History: Reports: None Musculoskeletal Surgical History: Reports: None Other Musculoskeletal Surgeries/Procedures:: back sx Dermatological Surgical History: Reports: None Social & Family History - Family History Family Medical History: Noncontributory - Tobacco Use Smoking Status *Q: Never Smoker - Caffeine Use Caffeine Use: Reports: None - Recreational Drug Use Recreational Drug Use: No - Living Situation & Occupation Living situation: Reports: with Family ED ROS GENERAL - Review of Systems Review Of Systems: See Below ED EXAM, SKIN/RASH Exam: See Below Course - Vital Signs Last Recorded V/S: Last Vital Signs Temp 36.7 C 01/08/20 18:16 Pulse 64 01/08/20 20:18 Resp 18 01/08/20 18:16 BP 158/60 H 01/08/20 20:18 Pulse Ox 98 01/08/20 20:18 - Orders/Labs/Meds Orders: Active Orders 24 hr Category Date Time Status Blood Glucose Check, Bedside [RC] ONETIME Care 01/08/20 15:40 Active Labs: Laboratory Tests 01/08/20 01/08/20 01/08/20 Range/Units 15:52 16:15 16:15 WBC 14.05 H (4.0-11.0) K/uL RBC 4.67 (4.30-5.90) M/uL Hgb 12.6 (12.0-16.0) g/dL Hct 39.1 (36.0-46.0) % MCV 83.7 (80.0-98.0) fL MCH 27.0 (27.0-32.0) pg MCHC 32.2 (31.0-37.0) g/dL RDW Std Deviation 38.3 (28.0-62.0) fl RDW Coeff of Lucho 13 (11.0-15.0) % Plt Count 370 (150-400) K/uL MPV 9.50 (7.40-12.00) fL Neut % (Auto) 78.4 (48.0-80.0) % Lymph % (Auto) 13.0 L (16.0-40.0) % [place] % (Auto) 7.4 (0.0-15.0) % Eos % (Auto) 0.9 (0.0-7.0) % Baso % (Auto) 0.3 (0.0-1.5) % Neut # (Auto) 11.0 H (1.4-5.7) K/uL Lymph # (Auto) 1.8 (0.6-2.4) K/uL [place] # (Auto) 1.0 H (0.0-0.8) K/uL Eos # (Auto) 0.1 (0.0-0.7) K/uL Baso # (Auto) 0.0 (0.0-0.1) K/uL Nucleated RBC % 0.0 /100WBC Nucleated RBCs # 0 K/uL VBG pH (7.31-7.41) VBG pCO2 (35-45) mmHG VBG pO2 (30-40) mmHG VBG HCO3 (22-30) mEq/L VBG Total CO2 (41-51) mmol/L VBG Base Excess (-3.0-3.0) Lactate 1.2 (0.20-2.00) mmol/L Sodium (136-145) mmol/L Potassium (3.5-5.1) mmol/L Chloride (98-107) mmol/L Carbon Dioxide (21.0-32.0) mmol/L BUN (7.0-18.0) mg/dL Creatinine (0.6-1.0) mg/dL Est Cr Clr Drug Dosing mL/min Estimated GFR (MDRD) ml/min Glucose (74-106) mg/dL POC Glucose 312 H (60-110) mg/dL Calcium (8.5-10.1) mg/dL Total Bilirubin (0.2-1.0) mg/dL AST (15-37) IU/L ALT (14-63) IU/L Alkaline Phosphatase (46-116) U/L Total Protein (6.4-8.2) g/dL Albumin (3.4-5.0) g/dL Globulin (2.6-4.0) g/dL Albumin/Globulin Ratio (0.9-1.6) Ketones (NEG) 01/08/20 01/08/20 01/08/20 Range/Units 16:15 16:15 16:15 WBC (4.0-11.0) K/uL RBC (4.30-5.90) M/uL Hgb (12.0-16.0) g/dL Hct (36.0-46.0) % MCV (80.0-98.0) fL MCH (27.0-32.0) pg MCHC (31.0-37.0) g/dL RDW Std Deviation (28.0-62.0) fl RDW Coeff of Lucho (11.0-15.0) % Plt Count (150-400) K/uL MPV (7.40-12.00) fL Neut % (Auto) (48.0-80.0) % Lymph % (Auto) (16.0-40.0) % Beau[place] % (Auto) (0.0-15.0) % Eos % (Auto) (0.0-7.0) % Baso % (Auto) (0.0-1.5) % Neut # (Auto) (1.4-5.7) K/uL Lymph # (Auto) (0.6-2.4) K/uL [place] # (Auto) (0.0-0.8) K/uL Eos # (Auto) (0.0-0.7) K/uL Baso # (Auto) (0.0-0.1) K/uL Nucleated RBC % /100WBC Nucleated RBCs # K/uL VBG pH 7.43 H (7.31-7.41) VBG pCO2 35 (35-45) mmHG VBG pO2 31 (30-40) mmHG VBG HCO3 23 (22-30) mEq/L VBG Total CO2 21 L (41-51) mmol/L VBG Base Excess -0.8 (-3.0-3.0) Lactate (0.20-2.00) mmol/L Sodium 136 (136-145) mmol/L Potassium 3.7 (3.5-5.1) mmol/L Chloride 100 (98-107) mmol/L Carbon Dioxide 24.5 (21.0-32.0) mmol/L BUN 27 H (7.0-18.0) mg/dL Creatinine 1.3 H (0.6-1.0) mg/dL Est Cr Clr Drug Dosing 35.49 mL/min Estimated GFR (MDRD) 41.5 ml/min Glucose 317 H (74-106) mg/dL POC Glucose (60-110) mg/dL Calcium 8.9 (8.5-10.1) mg/dL Total Bilirubin 0.2 (0.2-1.0) mg/dL AST 10 L (15-37) IU/L ALT 12 L (14-63) IU/L Alkaline Phosphatase 146 H (46-116) U/L Total Protein 8.1 (6.4-8.2) g/dL Albumin 2.6 L (3.4-5.0) g/dL Globulin 5.5 H (2.6-4.0) g/dL Albumin/Globulin Ratio 0.5 L (0.9-1.6) Ketones NEGATIVE (NEG) Meds: Medications Discontinued Medications Generic Name Dose Route Start Last Admin Trade Name Freq PRN Reason Stop Dose Admin Sodium Chloride 1,000 mls @ 1,000 mls/hr 01/08/20 15:52 01/08/20 16:15 Normal Saline IV 01/08/20 16:51 1,000 mls/hr .Bolus ONE Administration Clindamycin Phosphate 300 mg/ 52 mls @ 100 mls/hr 01/08/20 18:30 01/08/20 19: 51 Sodium Chloride IV 01/08/20 19:01 Not Given ONETIME ONE Clindamycin Phosphate Confirm 01/08/20 19:43 01/08/20 19:50 Cleocin In D5w Administered 01/08/20 19:44 Not Given Dose 50 mls @ as directed IV .STK-MED ONE Clindamycin Phosphate 300 mg/ 50 mls @ 150 mls/hr 01/08/20 19:44 01/08/20 19: 50 Premix IV 01/08/20 20:03 150 mls/hr ONETIME ONE Administration Morphine Sulfate 6 mg 01/08/20 16:18 01/08/20 16:23 Morphine IVPUSH 01/08/20 16:19 6 mg ONETIME ONE Administration Morphine Sulfate 6 mg 01/08/20 20:22 01/08/20 20:45 Morphine IVPUSH 01/08/20 20:23 6 mg ONETIME ONE Administration Departure - Departure Time of Disposition: 19:25 Disposition: DC/[facility] to [facility] Clinical Impression: Perirectal abscess - Discharge Information Referrals: Luis Arredondo MD [Primary Care Provider] - Forms: ED Department Discharge Sepsis Event Note - Evaluation Sepsis Screening Result: Possible Sepsis Risk - Focused Exam Vital Signs: Vital Signs Pulse BP Pulse Ox 01/08/20 20:18 64 158/60 H 98 01/08/20 19:56 66 169/67 H 99 Date Exam was Performed: 01/09/20 Time Exam was Performed: 07:44 - My Orders Last 24 Hours: My Active Orders 01/08/20 15:40 Blood Glucose Check, Bedside [RC] ONETIME - Assessment/Plan Last 24 Hours: My Active Orders 01/08/20 15:40 Blood Glucose Check, Bedside [RC] ONETIME
[2020-01-08 16:59] LABS: CARBON DIOXIDE,CO2 24.5 mmol/L (21.0-32.0); POTASSIUM,K 3.7 mmol/L (3.5-5.1)
--- NOTE | 2020-01-08 18:11 | CT ---
CT pelvis Technique: Multiple axial sections through the pelvis were obtained. Intravenous contrast and oral contrast not utilized. Comparison: No previous study. Findings: Focal soft tissue finding is seen next to the rectum and gluteal fold. This finding shows a small amount of central air and measures about 5.8 cm x 4.2 cm x 7.3 cm. No definite focal areas of fluid are seen to indicate a drainable abscess. Findings most likely represent focal cellulitis but patient at risk for future abscess development. No intrapelvic abnormality is seen. Diverticuli are noted within the colon without inflammatory change of diverticulitis. Impression: 1. Focal soft tissue abnormality between the rectum and gluteal fold. Measurements as noted above. 2. Small amount of central air is seen but no focal fluid collections to indicate drainable abscess. 3. Findings presumably represent focal cellulitis but this finding puts the patient at future risk for abscess development. Diagnostic code #3 Study was dictated in MDT
--- NOTE | 2020-01-08 19:31 | PCM.CONS ---
H&P History of Present Illness - General Date of Service: 01/08/20 Admit Problem/Dx: Patient is a 64-year-old female who I been asked to see in the emergency room secondary to a left buttock abscess. Patient states she has had this for about 3 weeks. Initially she thought this was a hemorrhoid and elected to treat herself with preparation H and suppositories. When she did not get any relief. She finally presented to her primary care physician Dr. Arredondo at [facility]. This was this past January 04. Patient states Dr. Arredondo did make a small incision and drain the abscess. She was started on clindamycin. Cultures have revealed a staph aureus. She was instructed to present back to the office to see Dr. Arredondo today. Apparently the abscess was worse and he sent her over to the emergency room. I was called by Dr. Davis from the emergency room shortly after 6 PM. Patient denies any fever or chills. She does still have a leukocytosis of 14,000 and her blood sugars again are uncontrolled. This past April she had incision and drainage of 2 large back abscesses by Dr. Salmon. Her hemoglobin A1c at that time was greater than 12. I do not have a recent hemoglobin A1c. Her post-op course in April was complicated by atrial fibrillation in the immediate post op period. Additionally she had 2 3-4 second episodes of asystole. Source of Information: Patient History Limitations: Reports: No Limitations - History of Present Illness Initial Comments - Free Text/Narative: See history of present illness Duration of Symptoms: Reports: Week(s):, Chronic Location: Reports: Pelvis Quality: Reports: Ache, Pressure, Throbbing Severity: Moderate Improves with: Reports: None Worsens with: Reports: None Associated Symptoms: Denies: Confusion, Chest Pain, Diaphoresis, Fever/Chills, Nausea/Vomiting Left Upper Buttock Pain Score (Numeric/FACES): 10 - Related Data Allergies/Adverse Reactions: Allergies Allergy/AdvReac Type Severity Reaction Status Date / Time Fish Containing Products Allergy Anaphylactic Verified 01/08/20 15:37 Shock latex Allergy Rash Verified 01/08/20 15:37 Penicillins Allergy Rash Verified 01/08/20 15:37 Home Medications: Home Meds Nystatin 15 mg TOP TID 05/09/19 [History] Hydrocodone/Acetaminophen [Hydrocodon-Acetaminophen 5-325] 1 each PO Q6H PRN # 20 tablet 05/13/19 [Rx] Insulin Aspart [NovoLOG] 5 unit SUBCUT TIDAC 30 Days #6 pen 05/13/19 [Rx] Insulin Glarg,Human.Rec.Analog [Lantus Solostar] 15 units SUBCUT BEDTIME 30 Days #3 pen 05/13/19 [Rx] Lisinopril/Hydrochlorothiazide [Lisinopril-HCTZ 10-12.5 MG] 1 tab PO DAILY #30 tablet 05/13/19 [Rx] Ondansetron [Zofran ODT] 4 mg PO Q4H PRN #30 tab.dis 05/13/19 [Rx] Past Medical History HEENT History: Reports: None Cardiovascular History: Reports: Hypertension Respiratory History: Reports: Asthma Gastrointestinal History: Reports: None Genitourinary History: Reports: None 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: Musculoskeletal History: Reports: Arthritis Neurological History: Reports: None Psychiatric History: Reports: Anxiety, Depression Endocrine/Metabolic History: Reports: Diabetes, Type II Hematologic History: Reports: None Immunologic History: Reports: None Dermatologic History: Reports: Other (See Below) Other Dermatologic History: lump on the back - Infectious Disease History Infectious Disease History: Reports: Chicken Pox - Past Surgical History Head Surgeries/Procedures: Reports: None Cardiovascular Surgical History: Reports: None Respiratory Surgical History: Reports: None Female Surgical History: Reports: Section Endocrine Surgical History: Reports: None Musculoskeletal Surgical History: Reports: None Other Musculoskeletal Surgeries/Procedures:: back sx Dermatological Surgical History: Reports: None Other Surgical History Comment: Incision and drainage of back abscesses in April 2019. Social & Family History - Family History Family Medical History: Noncontributory - Tobacco Use Smoking Status *Q: Never Smoker - Caffeine Use Caffeine Use: Reports: None - Recreational Drug Use Recreational Drug Use: No - Living Situation & Occupation Living situation: Reports: with Family H&P Review of Systems - Review of Systems: Review Of Systems: See Below General: Denies: Fever, Chills, Night Sweats, Diaphoresis HEENT: Reports: No Symptoms Pulmonary: Denies: Shortness of Breath, Wheezing Cardiovascular: Denies: Chest Pain, Palpitations, Dyspnea on Exertion Gastrointestinal: Reports: Flatus. Denies: Abdominal Pain, Anorexia, Black Stool, Bloody Stool, Constipation, Diarrhea, Distension, Hematemesis, Hematochezia, Melena, Nausea, Stool Incontinence, Vomiting Genitourinary: Reports: No Symptoms Musculoskeletal: Reports: No Symptoms Skin: Reports: Other (back abscess X 2). Denies: Cyanosis, Jaundice, Mottled, Pallor, Diaphoresis Psychiatric: Denies: Confusion, Depression, Mood Lability Neurological: Denies: Confusion, Dizziness, Seizure Hematologic/Lymphatic: Denies: Anemia, Easy Bleeding, Easy Bruising Immunologic: Denies: Anaphylaxis, Food Allergy, Environmental Allergy Exam - Exam Exam: See Below - Vital Signs Vital Signs: Last Vital Signs Temp 98.0 F 01/08/20 18:16 Pulse 61 01/08/20 18:16 Resp 18 01/08/20 18:16 BP 147/66 H 01/08/20 18:16 Pulse Ox 96 01/08/20 18:16 Weight: 174 lb 2.643 oz - Exam Quality Assessment: No: Supplemental Oxygen, Central Line/PICC, Urinary Catheter General: Alert, Oriented, Cooperative, Mild Distress. No: Lethargic, Obtunded HEENT: Conjunctiva Clear, Pupils Equal, Pupils Reactive, PERRLA Neck: Supple, Trachea Midline Lungs: Clear to Auscultation, Normal Respiratory Effort Cardiovascular: Regular Rate, Regular Rhythm, Normal S1, Normal S2. No: Tachycardia, Systolic Murmur, Diastolic Murmur, Rubs GI/Abdominal Exam: Normal Bowel Sounds, Soft, Non-Tender, No Distention. No: Guarding, Rigid, Rebound, Tender (Female) Exam: Normal External Exam Rectal (Female) Exam: Mass, Other (Left perianal abscess extending towards the rectum. There is air in the deep soft tissue between the rectum and the cutaneous opening high on the left buttock.) Back Exam: Normal Inspection Extremities: Normal Inspection, Normal Range of Motion, Non-Tender Skin: Warm, Dry, Intact Psychiatric: Alert, Normal Affect, Normal Mood - Patient Data Lab Results Last 24 hrs: Laboratory Results - last 24 hr 01/08/20 01/08/20 01/08/20 Range/Units 15:52 16:15 16:15 WBC 14.05 H (4.0-11.0) K/uL RBC 4.67 (4.30-5.90) M/uL Hgb 12.6 (12.0-16.0) g/dL Hct 39.1 (36.0-46.0) % MCV 83.7 (80.0-98.0) fL MCH 27.0 (27.0-32.0) pg MCHC 32.2 (31.0-37.0) g/dL RDW Std Deviation 38.3 (28.0-62.0) fl RDW Coeff of Lucho 13 (11.0-15.0) % Plt Count 370 (150-400) K/uL MPV 9.50 (7.40-12.00) fL Neut % (Auto) 78.4 (48.0-80.0) % Lymph % (Auto) 13.0 L (16.0-40.0) % Rogers % (Auto) 7.4 (0.0-15.0) % Eos % (Auto) 0.9 (0.0-7.0) % Baso % (Auto) 0.3 (0.0-1.5) % Neut # (Auto) 11.0 H (1.4-5.7) K/uL Lymph # (Auto) 1.8 (0.6-2.4) K/uL Rogers # (Auto) 1.0 H (0.0-0.8) K/uL Eos # (Auto) 0.1 (0.0-0.7) K/uL Baso # (Auto) 0.0 (0.0-0.1) K/uL Nucleated RBC % 0.0 /100WBC Nucleated RBCs # 0 K/uL VBG pH (7.31-7.41) VBG pCO2 (35-45) mmHG VBG pO2 (30-40) mmHG VBG HCO3 (22-30) mEq/L VBG Total CO2 (41-51) mmol/L VBG Base Excess (-3.0-3.0) Lactate 1.2 (0.20-2.00) mmol/L Sodium (136-145) mmol/L Potassium (3.5-5.1) mmol/L Chloride (98-107) mmol/L Carbon Dioxide (21.0-32.0) mmol/L BUN (7.0-18.0) mg/dL Creatinine (0.6-1.0) mg/dL Est Cr Clr Drug Dosing mL/min Estimated GFR (MDRD) ml/min Glucose (74-106) mg/dL POC Glucose 312 H (60-110) mg/dL Calcium (8.5-10.1) mg/dL Total Bilirubin (0.2-1.0) mg/dL AST (15-37) IU/L ALT (14-63) IU/L Alkaline Phosphatase (46-116) U/L Total Protein (6.4-8.2) g/dL Albumin (3.4-5.0) g/dL Globulin (2.6-4.0) g/dL Albumin/Globulin Ratio (0.9-1.6) Ketones (NEG) 01/08/20 01/08/20 01/08/20 Range/Units 16:15 16:15 16:15 WBC (4.0-11.0) K/uL RBC (4.30-5.90) M/uL Hgb (12.0-16.0) g/dL Hct (36.0-46.0) % MCV (80.0-98.0) fL MCH (27.0-32.0) pg MCHC (31.0-37.0) g/dL RDW Std Deviation (28.0-62.0) fl RDW Coeff of Lucho (11.0-15.0) % Plt Count (150-400) K/uL MPV (7.40-12.00) fL Neut % (Auto) (48.0-80.0) % Lymph % (Auto) (16.0-40.0) % Rogers % (Auto) (0.0-15.0) % Eos % (Auto) (0.0-7.0) % Baso % (Auto) (0.0-1.5) % Neut # (Auto) (1.4-5.7) K/uL Lymph # (Auto) (0.6-2.4) K/uL Rogers # (Auto) (0.0-0.8) K/uL Eos # (Auto) (0.0-0.7) K/uL Baso # (Auto) (0.0-0.1) K/uL Nucleated RBC % /100WBC Nucleated RBCs # K/uL VBG pH 7.43 H (7.31-7.41) VBG pCO2 35 (35-45) mmHG VBG pO2 31 (30-40) mmHG VBG HCO3 23 (22-30) mEq/L VBG Total CO2 21 L (41-51) mmol/L VBG Base Excess -0.8 (-3.0-3.0) Lactate (0.20-2.00) mmol/L Sodium 136 (136-145) mmol/L Potassium 3.7 (3.5-5.1) mmol/L Chloride 100 (98-107) mmol/L Carbon Dioxide 24.5 (21.0-32.0) mmol/L BUN 27 H (7.0-18.0) mg/dL Creatinine 1.3 H (0.6-1.0) mg/dL Est Cr Clr Drug Dosing 35.49 mL/min Estimated GFR (MDRD) 41.5 ml/min Glucose 317 H (74-106) mg/dL POC Glucose (60-110) mg/dL Calcium 8.9 (8.5-10.1) mg/dL Total Bilirubin 0.2 (0.2-1.0) mg/dL AST 10 L (15-37) IU/L ALT 12 L (14-63) IU/L Alkaline Phosphatase 146 H (46-116) U/L Total Protein 8.1 (6.4-8.2) g/dL Albumin 2.6 L (3.4-5.0) g/dL Globulin 5.5 H (2.6-4.0) g/dL Albumin/Globulin Ratio 0.5 L (0.9-1.6) Ketones NEGATIVE (NEG) Result Diagrams: 01/08/20 16:15 01/08/20 16:15 Sepsis Event Note - Evaluation Sepsis Screening Result: Possible Sepsis Risk - Focused Exam Vital Signs: Vital Signs Temp Pulse Resp BP Pulse Ox 01/08/20 18:16 98.0 F 61 18 147/66 H 96 01/08/20 17:18 62 18 152/86 H 98 01/08/20 16:26 72 18 119/68 98 01/08/20 15:34 95.9 F L 108 H 20 130/74 97 Date Exam was Performed: 01/08/20 Time Exam was Performed: 19:26 Consult PN Assessment/Plan Procedures: Procedures AIRWAY INHALATION TREATMENT (04/24/18) EMERGENCY DEPT VISIT (04/24/18) HYDRATE IV INFUSION ADD-ON (04/24/18) THER/PROPH/DIAG INJ IV PUSH (04/24/18) TX/PRO/DX INJ NEW DRUG ADDON (04/24/18) (1) Perianal abscess SNOMED Code(s): 74881407 Code(s): K61.0 - ANAL ABSCESS Priority: High Current Visit: Yes Assessment:: Patient does have a small pocket of air in the deep soft tissue between the rectum and the incision. (2) Cellulitis SNOMED Code(s): 398593841 Code(s): L03.90 - CELLULITIS, UNSPECIFIED Priority: High Current Visit: Yes Comment: MSSA Qualifiers: Site of cellulitis of trunk: perineum (3) Dyspnea SNOMED Code(s): 119317073 Code(s): R06.00 - DYSPNEA, UNSPECIFIED Current Visit: No Qualifiers: Dyspnea type: unspecified Qualified Code(s): R06.00 - Dyspnea, unspecified (4) Methicillin susceptible Staphylococcus aureus infection SNOMED Code(s): 690230226 Code(s): A49.01 - METHICILLIN SUSCEP STAPH INFECTION, UNSP SITE Priority: High Current Visit: Yes (5) Chronic kidney disease (CKD), stage III (moderate) SNOMED Code(s): 698113381 Code(s): N18.3 - CHRONIC KIDNEY DISEASE, STAGE 3 (MODERATE) Priority: Medium Current Visit: Yes (6) Diabetes mellitus type 2 in obese SNOMED Code(s): 92034880 Code(s): E11.69 - TYPE 2 DIABETES MELLITUS WITH OTHER SPECIFIED COMPLICATION ; E66.9 - OBESITY, UNSPECIFIED Priority: High Current Visit: Yes Comment: Hemoglobin A1c 12.5%. (7) Hypertension SNOMED Code(s): 98548344 Code(s): I10 - ESSENTIAL (PRIMARY) HYPERTENSION Priority: High Current Visit: Yes Qualifiers: Hypertension type: essential hypertension Qualified Code(s): I10 - Essential (primary) hypertension Problem List Initiated/Reviewed/Updated: Yes Plan: Given her uncontrolled diabetes, long-standing(3 week) history of a left perianal abscess that was minimally drained and a new finding of apparent extension toward the rectum with air in the soft tissues and a history of cardiac dysrythmia with two short episodes of asystole after her last procedure , it would be best for her to be transferred to a tertiary facility with colo- rectal and ICU support. Thank you for this consultation.
[2020-01-08] MEDS ORDERED: Clindamycin Phosphate in D5W 50 ML IV ONE (19:43)
[2020-01-08] MEDS ORDERED: Clindamycin Phosphate in D5W 300 MG in Premix Bag 1 BAG IV ONE ×2 (19:44)
== END 2020-01-08 20:50 ==
LOC: MW.ED 15:20
DX: K61.1 Rectal abscess (principal); E11.9 Type 2 diabetes mellitus without complications; I10 Essential (primary) hypertension; J45.909 Unspecified asthma, uncomplicated; Z79.4 Long term (current) use of insulin; Z79.899 Other long term (current) drug therapy; Z91.040 Latex allergy status; Z88.0 Allergy status to penicillin; Z91.013 Allergy to seafood
CPT/HCPCS: 72192; 80053; 82009; 82803; 82962; 83605; 85025; 96361; 96365; 96375; 96376; 99285; J2270; J3490; J7030; 99284

== ENCOUNTER 2020-11-23 11:07 | Emergency (ER) | payer OTHER ==
--- NOTE | 2020-11-23 11:42 | EDM.PDOC ---
ED HPI GENERAL MEDICAL PROBLEM - General Chief Complaint: Back Pain or Injury Stated Complaint: BACK PAIN Time Seen by Provider: 11/23/20 11:12 - History of Present Illness INITIAL COMMENTS - FREE TEXT/NARRATIVE: 65-year-old female with a history of renal insufficiency and diabetes for which she uses sliding scale insulin who is presenting with 2 weeks of left lower back pain with radiation down the thigh wrapping around her calf and into her left foot. The symptoms have not been relieved by 800 mg ibuprofens which she is taking multiple times a day. No urinary or bowel incontinence no lower extremity weakness though difficulty with standing and walking secondary to the pain. No fevers no chills no history of IV drug abuse. Symptoms currently 8 out of 10. No abdominal pain no nausea no vomiting. Lower Back Pain Score (Numeric/FACES): 9 - Related Data Allergies Allergy/AdvReac Type Severity Reaction Status Date / Time Fish Containing Products Allergy Anaphylactic Verified 11/23/20 11:22 Shock latex Allergy Rash Verified 11/23/20 11:22 Penicillins Allergy Rash Verified 11/23/20 11:22 Home Meds: Home Meds Insulin Aspart [NovoLOG] 5 unit SUBCUT TIDAC 30 Days #6 pen 05/13/19 [Rx] Insulin Glarg,Human.Rec.Analog [Lantus Solostar] 15 units SUBCUT BEDTIME 30 Days #3 pen 05/13/19 [Rx] Lisinopril/Hydrochlorothiazide [Lisinopril-HCTZ 10-12.5 MG] 1 tab PO DAILY #30 tablet 05/13/19 [Rx] Acetaminophen/HYDROcodone [[place] 325-5 MG] 1 tab PO Q6H PRN 3 Days #12 tablet 11/23/20 [Rx] Omeprazole 20 mg PO DAILY 11/23/20 [History] atorvaSTATin [Lipitor] 20 mg PO DAILY 11/23/20 [History] methylPREDNISolone [Medrol Dose Pack] 4 mg PO DAILY #1 dospk 11/23/20 [Rx] Past Medical History HEENT History: Reports: None Cardiovascular History: Reports: High Cholesterol, Hypertension Respiratory History: Reports: Asthma Gastrointestinal History: Reports: GERD Genitourinary History: Reports: None 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: Musculoskeletal History: Reports: Arthritis Neurological History: Reports: None Psychiatric History: Reports: Anxiety, Depression Endocrine/Metabolic History: Reports: Diabetes, Type II Hematologic History: Reports: None Immunologic History: Reports: None Dermatologic History: Reports: Other (See Below) Other Dermatologic History: lump on the back - Infectious Disease History Infectious Disease History: Reports: Chicken Pox - Past Surgical History Head Surgeries/Procedures: Reports: None Cardiovascular Surgical History: Reports: None Respiratory Surgical History: Reports: None Female Surgical History: Reports: Section Endocrine Surgical History: Reports: None Musculoskeletal Surgical History: Reports: None Other Musculoskeletal Surgeries/Procedures:: back sx Dermatological Surgical History: Reports: None Social & Family History - Family History Family Medical History: No Pertinent Family History - Tobacco Use Tobacco Use Status *Q: Never Tobacco User - Caffeine Use Caffeine Use: Reports: None - Recreational Drug Use Recreational Drug Use: No - Living Situation & Occupation Living situation: Reports: with Family ED ROS GENERAL - Review of Systems Review Of Systems: See Below Free Text/Narrative/Comment: General: No fever. Neck: No neck stiffness. Respiratory: No shortness of breath. Cardiac: No chest pain. Gastrointestinal: No nausea, vomiting or abdominal pain. Urinary: No dysuria. Musculoskeletal: Per HPI ED EXAM, GENERAL - Physical Exam Exam: See Below Free Text/Narrative:: General Appearance: No acute distress, appears comfortable Skin: No rash HEENT: Normocephalic/atraumatic, sclera anicteric, mucous membranes moist Neck: Normal range of motion Chest and Lungs: Bilateral breath sounds, clear to auscultation Cardiovascular: Regular rate and rhythm, no murmur Abdomen: Soft, non-tender Back: Normal Musculoskeletal: No midline spinal tenderness mild tenderness to palpation in the left paraspinal region no focal tenderness in the left hip knee or ankle strength 5 out of 5 in the bilateral hips in flexion extension abduction and abduction 5 out of 5 strength in the bilateral knees in flexion and extension as well as 5 out of 5 strength in the bilateral ankles and plantar flexion and dorsiflexion 2+ DP pulse in the left foot on the left extremity is neurologically intact. Neurologic: Awake, alert, no obvious deficits, moving all extremities Psychiatric: Appropriate, cooperative Course - Vital Signs Last Recorded V/S: Last Vital Signs Temp 96.2 F L 11/23/20 11:23 Pulse 60 11/23/20 11:51 Resp 16 11/23/20 11:51 BP 170/119 H 11/23/20 11:51 Pulse Ox 98 02/27/21 11:51 Departure - Departure Time of Disposition: 11:38 Disposition: Home, Self-Care 01 Condition: Good Clinical Impression: Lumbar radiculopathy, acute - Discharge Information *PRESCRIPTION DRUG MONITORING PROGRAM REVIEWED*: Not Applicable *COPY OF PRESCRIPTION DRUG MONITORING REPORT IN PATIENT ALEX: Not Applicable Prescriptions: methylPREDNISolone [Medrol Dose Pack] 4 mg PO DAILY #1 dospk Acetaminophen/HYDROcodone [[place] 325-5 MG] 1 tab PO Q6H PRN 3 Days #12 tablet PRN Reason: Pain Instructions: Pinched Nerve Referrals: Luis Arreodndo MD [Primary Care Provider] - Forms: ED Department Discharge Additional Instructions: Your lumbar radiculopathy is likely caused by inflammation and irritation fox rrounding the root of the nerve as it exits your spine. You do not have any signs of compression of your spinal cord. The Medrol Dosepak is to be used instead of any NSAIDs. Do not take any ibuprofen Advil Aleve or similar products well you are taking the Medrol Dosepak. The Medrol Dosepak may mildly raise your blood sugar. Please continue to use your sliding scale insulin. Please stop taking the Medrol Dosepak if your blood sugars climb out of the range of your sliding scale insulin. The [place] prescription is a combination of hydrocodone and Tylenol. Because of this do not take more than 2 extra strength Tylenols days that you are taking the [place]. Please be sure to follow-up with your primary care doctor as if your symptoms do not improve further testing including MRI may be necessary. The following information is given to patients seen in the emergency department who are being discharged to home. This information is to outline your options for follow-up care. We provide all patients seen in our emergency department with a follow-up referral. The need for follow-up, as well as the timing and circumstances, are variable depending upon the specifics of your emergency department visit. If you don't have a primary care physician on staff, we will provide you with a referral. We always advise you to contact your personal physician following an emergency department visit to inform them of the circumstance of the visit and for follow-up with them and/or the need for any referrals to a consulting specialist. The emergency department will also refer you to a specialist when appropriate. This referral assures that you have the opportunity for follow-up care with a specialist. All of these measure are taken in an effort to provide you with optimal care, which includes your follow-up. Under all circumstances we always encourage you to contact your private physician who remains a resource for coordinating your care. When calling for follow-up care, please make the office aware that this follow-up is from your recent emergency room visit. If for any reason you are refused follow-up, please contact the [facility] Emergency Department at and asked to speak to the emergency department charge nurse. Sepsis Event Note (ED) - Evaluation Sepsis Screening Result: No Definite Risk - Focused Exam Vital Signs: Vital Signs Temp Pulse Resp BP Pulse Ox 11/23/20 11:51 60 16 170/119 H 98 11/23/20 11:23 96.2 F L 71 18 197/86 H 98 - Assessment/Plan Assessment:: 65-year-old female presenting with signs and symptoms that are most consistent with lumbar radiculopathy. No findings that would suggest cord compression or cauda equina. Patient has no fever she has no history of IV drug abuse no reason to suspect epidural abscess or spinal osteomyelitis at this point. Patient has no abdominal findings no fevers nothing to suggest intra-abdominal process. Her exam is consistent with lumbar radiculopathy. No sign of vascular compromise in the left lower extremity. Patient has been taking a significant amount of ibuprofen over the last several days and it is time to manage his pain. She has been instructed to stop taking all NSAIDs. Weighing the risk benefits and alternatives I think a Medrol Dosepak would be most appropriate at this time. Patient checks her blood sugar regularly at home and she uses sliding scale insulin. I discussed with her and her daughter the importance of continuing to do this and we discussed that the Medrol Dosepak may raise her blood sugar somewhat and that she should compensate for this using her normal sliding scale. We discussed stopping the Medrol Dosepak if her blood sugar climbs out of the range of her sliding scale dosing. Patient was also given a short prescription of [place] for pain relief particularly at night and until the Medrol Dosepak starts to work. Standard [place] precautions were discussed. The importance of following up with her primary care doctor for additional evaluation was also discussed as if she continues to have symptoms an MRI of the lumbar spine may be indicated. Patient and daughter comfortable with treatment plan and follow-up plan expressed agreement and understanding.
== END 2020-11-23 11:51 | disposition home or self-care (01) ==
LOC: MW.ED 11:07
DX: M54.16 Radiculopathy, lumbar region (principal); E78.00 Pure hypercholesterolemia, unspecified; I10 Essential (primary) hypertension; J45.909 Unspecified asthma, uncomplicated; K21.9 Gastro-esophageal reflux disease without esophagitis; E11.9 Type 2 diabetes mellitus without complications; E66.9 Obesity, unspecified; Z68.32 Body mass index [BMI] 32.0-32.9, adult; Z91.040 Latex allergy status; Z88.0 Allergy status to penicillin; Z91.013 Allergy to seafood; Z79.4 Long term (current) use of insulin; Z79.899 Other long term (current) drug therapy
CPT/HCPCS: 99283

== ENCOUNTER 2021-07-01 05:25 | Emergency (ER) | payer OTHER ==
[2021-07-01] MEDS ORDERED: Sodium Chloride 0.9% 1,000 ML IV ONE (05:39)
--- NOTE | 2021-07-01 05:42 | EDM.PDOC ---
<Bam Whitmore - Last Filed: 07/01/21 05:40> ED HPI GENERAL MEDICAL PROBLEM - General Chief Complaint: Back Pain or Injury Stated Complaint: BACK PAIN Time Seen by Provider: 07/01/21 05:26 Source of Information: Reports: Patient History Limitations: Reports: No Limitations - History of Present Illness INITIAL COMMENTS - FREE TEXT/NARRATIVE: Patient 65-year-old female history of high blood pressure and diabetes who presents today for multiple complaints. She says for the past week she has been having body aches feeling weak tired and having a dry cough with chest pain. She has tried [id number] medication without relief. States her cough is nonproductive. Her entire body hurts and is not made better with the Tylenol or Motrin. She denies any abdominal pain but has decreased appetite. Upper Back Pain Score (Numeric/FACES): 5 - Related Data Allergies Allergy/AdvReac Type Severity Reaction Status Date / Time Fish Containing Products Allergy Anaphylactic Verified 07/01/21 05:46 Shock latex Allergy Rash Verified 07/01/21 05:46 Penicillins Allergy Rash Verified 07/01/21 05:46 Home Meds: Home Meds Insulin Aspart [NovoLOG] 5 unit SUBCUT TIDAC 30 Days #6 pen 05/13/19 [Rx] Insulin Glarg,Human.Rec.Analog [Lantus Solostar] 15 units SUBCUT BEDTIME 30 Days #3 pen 05/13/19 [Rx] Lisinopril/Hydrochlorothiazide [Lisinopril-HCTZ 10-12.5 MG] 1 tab PO DAILY #30 tablet 05/13/19 [Rx] Acetaminophen/HYDROcodone [[place] 325-5 MG] 1 tab PO Q6H PRN 3 Days #12 tablet 11/23/20 [Rx] Omeprazole 20 mg PO DAILY 11/23/20 [History] atorvaSTATin [Lipitor] 20 mg PO DAILY 11/23/20 [History] methylPREDNISolone [Medrol Dose Pack] 4 mg PO DAILY #1 dospk 11/23/20 [Rx] Past Medical History HEENT History: Reports: None Cardiovascular History: Reports: High Cholesterol, Hypertension Respiratory History: Reports: Asthma Gastrointestinal History: Reports: GERD Genitourinary History: Reports: None SKIVER HAND History: Reports: Musculoskeletal History: Reports: Arthritis Neurological History: Reports: None Psychiatric History: Reports: Anxiety, Depression Endocrine/Metabolic History: Reports: Diabetes, Type II Hematologic History: Reports: None Immunologic History: Reports: None Dermatologic History: Reports: Other (See Below) Other Dermatologic History: lump on the back - Infectious Disease History Infectious Disease History: Reports: Chicken Pox - Past Surgical History Head Surgeries/Procedures: Reports: None Cardiovascular Surgical History: Reports: None Respiratory Surgical History: Reports: None Female Surgical History: Reports: Section Endocrine Surgical History: Reports: None Musculoskeletal Surgical History: Reports: None Other Musculoskeletal Surgeries/Procedures:: back sx Dermatological Surgical History: Reports: None Social & Family History - Family History Family Medical History: No Pertinent Family History - Caffeine Use Caffeine Use: Reports: None - Living Situation & Occupation Living situation: Reports: with Family ED ROS GENERAL - Review of Systems Review Of Systems: See Below Constitutional: Reports: Malaise, Decreased Appetite HEENT: Reports: No Symptoms Respiratory: Reports: Cough Cardiovascular: Reports: No Symptoms Endocrine: Reports: No Symptoms GI/Abdominal: Reports: No Symptoms : Reports: No Symptoms Musculoskeletal: Reports: No Symptoms Skin: Reports: No Symptoms Neurological: Reports: No Symptoms Psychiatric: Reports: No Symptoms Hematologic/Lymphatic: Reports: No Symptoms Immunologic: Reports: No Symptoms ED EXAM, GENERAL - Physical Exam Exam: See Below Exam Limited By: No Limitations General Appearance: Alert, WD/WN, No Apparent Distress Eye Exam: Bilateral Eye: EOMI Ears: Normal External Exam Nose: Normal Inspection Head: Atraumatic, Normocephalic Neck: Normal Inspection Respiratory/Chest: No Respiratory Distress, Lungs Clear, Normal Breath Sounds Cardiovascular: Normal Peripheral Pulses, Regular Rate, Rhythm GI/Abdominal: Normal Bowel Sounds, Soft, Non-Tender Extremities: Normal Inspection, Normal Range of Motion, Non-Tender Neurological: Alert, Oriented, CN II-XII Intact, Normal Cognition, Normal Gait Departure - Departure Disposition: Home, Self-Care 01 Clinical Impression: Respiratory infection - Discharge Information Instructions: Upper Respiratory Infection, Adult Referrals: Luis Arredondo MD [Primary Care Provider] - Forms: ED Department Discharge Additional Instructions: The following information is given to patients seen in the emergency department who are being discharged to home. This information is to outline your options for follow-up care. We provide all patients seen in our emergency department with a follow-up referral. The need for follow-up, as well as the timing and circumstances, are variable depending upon the specifics of your emergency department visit. If you don't have a primary care physician on staff, we will provide you with a referral. We always advise you to contact your personal physician following an emergency department visit to inform them of the circumstance of the visit and for follow-up with them and/or the need for any referrals to a consulting specialist. The emergency department will also refer you to a specialist when appropriate. This referral assures that you have the opportunity for follow-up care with a specialist. All of these measure are taken in an effort to provide you with optimal care, which includes your follow-up. Under all circumstances we always encourage you to contact your private physician who remains a resource for coordinating your care. When calling for follow-up care, please make the office aware that this follow-up is from your recent emergency room visit. If for any reason you are refused follow-up, please contact the [facility] Emergency Department at and asked to speak to the emergency department charge nurse. Please follow up with your primary care physician. If you do not have a primary care physician, see below: [facility] [address] [place] [id number] [facility] [address] [place] [id number] [facility] [address] [place] [id number] Sepsis Event Note (ED) - Evaluation Sepsis Screening Result: No Definite Risk - Assessment/Plan Plan: Patient is a 65-year-old female presents today for multiple complaints. Patient complains seem more likely related to a viral illness will obtain labs EKG x-ray and reassess. <Kleber Billingsley - Last Filed: 07/01/21 07:14> Course - Vital Signs Last Recorded V/S: Last Vital Signs Temp 99.7 F 07/01/21 05:35 Pulse 83 07/01/21 06:40 Resp 19 07/01/21 06:40 BP 177/83 H 10/05/21 06:40 Pulse Ox 95 07/01/21 06:40 - Orders/Labs/Meds Labs: Laboratory Tests 07/01/21 07/01/21 07/01/21 Range/Units 05:50 05:50 05:50 WBC 9.72 (4.0-11.0) K/uL RBC 5.05 (4.30-5.90) M/uL Hgb 13.9 (12.0-16.0) g/dL Hct 39.7 (36.0-46.0) % MCV 78.6 L (80.0-98.0) fL MCH 27.5 (27.0-32.0) pg MCHC 35.0 (31.0-37.0) g/dL RDW Std Deviation 37.2 (28.0-62.0) fl RDW Coeff of Lucho 13 (11.0-15.0) % Plt Count 167 (150-400) K/uL MPV 10.20 (7.40-12.00) fL Neut % (Auto) 89.7 H (48.0-80.0) % Lymph % (Auto) 5.9 L (16.0-40.0) % Camp % (Auto) 4.2 (0.0-15.0) % Eos % (Auto) 0.0 (0.0-7.0) % Baso % (Auto) 0.2 (0.0-1.5) % Neut # (Auto) 8.7 H (1.4-5.7) K/uL Lymph # (Auto) 0.6 (0.6-2.4) K/uL Camp # (Auto) 0.4 (0.0-0.8) K/uL Eos # (Auto) 0.0 (0.0-0.7) K/uL Baso # (Auto) 0.0 (0.0-0.1) K/uL Nucleated RBC % 0.0 /100WBC Nucleated RBCs # 0 K/uL Sodium 129 L (136-145) mmol/L Potassium 3.8 (3.5-5.1) mmol/L Chloride 93 L (98-107) mmol/L Carbon Dioxide 21.2 (21.0-32.0) mmol/L BUN 14 (7.0-18.0) mg/dL Creatinine 1.1 H (0.6-1.0) mg/dL Est Cr Clr Drug Dosing 41.40 mL/min Estimated GFR (MDRD) 50.2 ml/min Glucose 393 H (74-106) mg/dL Calcium 8.3 L (8.5-10.1) mg/dL Total Bilirubin 1.0 (0.2-1.0) mg/dL AST 53 H (15-37) IU/L ALT 35 (14-63) IU/L Alkaline Phosphatase 261 H (46-116) U/L Creatine Kinase (26-308) U/L Troponin I (0.000-0.056) ng/mL Total Protein 7.5 (6.4-8.2) g/dL Albumin 2.6 L (3.4-5.0) g/dL Globulin 4.9 H (2.6-4.0) g/dL Albumin/Globulin Ratio 0.5 L (0.9-1.6) SARS-CoV-2 RNA (MIS) NEGATIVE (NEGATIVE) 07/01/21 Range/Units 05:50 WBC (4.0-11.0) K/uL RBC (4.30-5.90) M/uL Hgb (12.0-16.0) g/dL Hct (36.0-46.0) % MCV (80.0-98.0) fL MCH (27.0-32.0) pg MCHC (31.0-37.0) g/dL RDW Std Deviation (28.0-62.0) fl RDW Coeff of Lucho (11.0-15.0) % Plt Count (150-400) K/uL MPV (7.40-12.00) fL Neut % (Auto) (48.0-80.0) % Lymph % (Auto) (16.0-40.0) % Camp % (Auto) (0.0-15.0) % Eos % (Auto) (0.0-7.0) % Baso % (Auto) (0.0-1.5) % Neut # (Auto) (1.4-5.7) K/uL Lymph # (Auto) (0.6-2.4) K/uL Camp # (Auto) (0.0-0.8) K/uL Eos # (Auto) (0.0-0.7) K/uL Baso # (Auto) (0.0-0.1) K/uL Nucleated RBC % /100WBC Nucleated RBCs # K/uL Sodium (136-145) mmol/L Potassium (3.5-5.1) mmol/L Chloride (98-107) mmol/L Carbon Dioxide (21.0-32.0) mmol/L BUN (7.0-18.0) mg/dL Creatinine (0.6-1.0) mg/dL Est Cr Clr Drug Dosing mL/min Estimated GFR (MDRD) ml/min Glucose (74-106) mg/dL Calcium (8.5-10.1) mg/dL Total Bilirubin (0.2-1.0) mg/dL AST (15-37) IU/L ALT (14-63) IU/L Alkaline Phosphatase (46-116) U/L Creatine Kinase 35 (26-308) U/L Troponin I < 0.050 (0.000-0.056) ng/mL Total Protein (6.4-8.2) g/dL Albumin (3.4-5.0) g/dL Globulin (2.6-4.0) g/dL Albumin/Globulin Ratio (0.9-1.6) SARS-CoV-2 RNA (MIS) (NEGATIVE) Meds: Medications Discontinued Medications Generic Name Dose Route Start Last Admin Trade Name Freq PRN Reason Stop Dose Admin Sodium Chloride 1,000 mls @ 1,000 mls/hr 07/01/21 05:39 07/01/21 05:56 Normal Saline IV 07/01/21 06:38 1,000 mls/hr .Bolus ONE Administration Insulin Human Regular 5 unit 07/01/21 07:00 Insulin Regular, Human 100 Units/Ml 10 Ml Vial SUBCUT 07/01/21 07:01 ONETIME ONE Protocol Ondansetron HCl 4 mg 07/01/21 05:46 07/01/21 05:57 Ondansetron 4 Mg/2 Ml Sdv IVPUSH 07/01/21 05:47 4 mg ONETIME ONE Administration - Re-Assessments/Exams Free Text/Narrative Re-Assessment/Exam: 07/01/21 07:13 Will give 5units subq insulin for hyperglycemia. Will give azithromycin outpatient for possible respiratory infection considering patient's symptoms. Departure - Departure Time of Disposition: 07:13 Condition: Good Sepsis Event Note (ED) - Focused Exam Vital Signs: Vital Signs Temp Pulse Resp BP Pulse Ox 07/01/21 06:40 83 19 177/83 H 95 07/01/21 05:35 99.7 F 103 H 20 177/83 H 95
[2021-07-01] MEDS ORDERED: Ondansetron 4 MG/2 ML SDV IVPUSH ONE (05:46)
[2021-07-01 06:44] LABS: CARBON DIOXIDE,CO2 21.2 mmol/L (21.0-32.0); POTASSIUM,K 3.8 mmol/L (3.5-5.1)
[2021-07-01] MEDS ORDERED: Insulin Regular, Human 100 Units/ML 10 ML Vial SUBCUT ONE (07:00)
--- NOTE | 2021-07-01 07:00 | CR ---
INDICATION: Body aches and fever. COMPARISON: [facility]-view chest May 09, 2019. TECHNIQUE: Portable AP chest. FINDINGS: Normal size cardiac silhouette. Clear lung wilkes with no evidence of acute pulmonic infiltrates or CHF. No pneumothorax or pleural effusion. IMPRESSION: Negative portable AP chest. Dictated by Efe Chandler MD @ 07/01/2021 6:57:56 AM (Electronically Signed)
== END 2021-07-01 08:08 | disposition home or self-care (01) ==
LOC: MW.ED 05:25
DX: J98.8 Other specified respiratory disorders (principal); E78.00 Pure hypercholesterolemia, unspecified; I10 Essential (primary) hypertension; J45.909 Unspecified asthma, uncomplicated; K21.9 Gastro-esophageal reflux disease without esophagitis; M19.90 Unspecified osteoarthritis, unspecified site; E11.9 Type 2 diabetes mellitus without complications; Z91.013 Allergy to seafood; Z91.040 Latex allergy status; Z88.0 Allergy status to penicillin; Z79.4 Long term (current) use of insulin; Z79.899 Other long term (current) drug therapy; Z20.822 Contact with and (suspected) exposure to COVID-19
CPT/HCPCS: 71045; 80053; 82550; 82947; 84484; 85025; 87635; 93005; 96374; 99284; J1815; J2405; J7030; U0002

== ENCOUNTER 2022-04-14 16:28 | Emergency (ER) | payer SELFPAY ==
[2022-04-14] MEDS ORDERED: Albuterol/Ipratropium 3.0-0.5 MG/3 ML Neb Soln NEB ONE (16:33)
[2022-04-14] MEDS ORDERED: Sodium Chloride 0.9% 2.5 ML Syringe FLUSH PRN (16:36)
[2022-04-14] MEDS ORDERED: Sodium Chloride 0.9% 10 ML Syringe FLUSH PRN (16:36)
[2022-04-14] MEDS ORDERED: methylPREDNISolone Sodium Succinate 125 MG/2 ML SDV IVPUSH ONE (16:36)
[2022-04-14] MEDS ORDERED: Magnesium Sulfate/Water 50 ML ONE (16:44)
[2022-04-14] MEDS ORDERED: LORazepam 2 MG/ML SDV IVPUSH ONE (16:45)
[2022-04-14] MEDS ORDERED: Magnesium Sulfate (4.06 MEQ/ML) 5 GM/10 ML SDV IV STA (16:46)
[2022-04-14] MEDS ORDERED: Magnesium Sulfate/Water 2 GM in Premix Bag 1 BAG IV ONE (17:00)
[2022-04-14 17:20] LABS: CARBON DIOXIDE,CO2 21.7 mmol/L (21.0-32.0); POTASSIUM,K 3.5 mmol/L (3.5-5.1)
[2022-04-14 17:32] LABS: CORONAVIRUS COVID-19 NAA NEGATIVE (NEGATIVE); INFLUENZA A NAA NEGATIVE (NEGATIVE); INFLUENZA B NAA NEGATIVE (NEGATIVE)
[2022-04-14] MEDS ORDERED: Iopamidol 755 MG/ML 500 ML Multipack Bottle IVPUSH STA (18:05)
== END 2022-04-14 19:30 | disposition home or self-care (01) ==
LOC: MW.ED 16:28
DX: J45.901 Unspecified asthma with (acute) exacerbation (principal); R91.8 Other nonspecific abnormal finding of lung field; E78.00 Pure hypercholesterolemia, unspecified; K21.9 Gastro-esophageal reflux disease without esophagitis; I10 Essential (primary) hypertension; E11.9 Type 2 diabetes mellitus without complications; Z91.013 Allergy to seafood; Z91.040 Latex allergy status; Z88.0 Allergy status to penicillin; Z79.4 Long term (current) use of insulin; Z79.899 Other long term (current) drug therapy; Z20.822 Contact with and (suspected) exposure to COVID-19
CPT/HCPCS: 0240U; 36415; 71045; 71275; 80053; 83735; 84484; 85025; 85379; 93005; 94640; 96374; 96375; 96376; 99285; J2060; J2930; J3475; J3490; Q9967; 93010; 99284; J7620-GY

== ENCOUNTER 2022-08-22 02:15 | Emergency (ER) | payer SELFPAY ==
[2022-08-22] MEDS ORDERED: LORazepam 2 MG/ML SDV IVPUSH ONE (02:41)
[2022-08-22] MEDS ORDERED: Ketorolac 30 MG/ML SDV IVPUSH ONE (02:51)
[2022-08-22] MEDS ORDERED: Sodium Chloride 0.9% 1,000 ML IV ONE (02:51)
[2022-08-22 03:02] LABS: BLOOD UREA NITROGEN,BUN 24 mg/dL (7.0-18.0); CARBON DIOXIDE,CO2 22.2 mmol/L (21.0-32.0); CHLORIDE,CL 106 mmol/L (98-107); GLUCOSE RANDOM 164 mg/dL (74-106); POTASSIUM,K 3.9 mmol/L (3.5-5.1); SODIUM,NA 138 mmol/L (136-145)
[2022-08-22 03:19] LABS: ESTIMATED GFR 63 mL/min (>60)
[2022-08-22] MEDS ORDERED: Acetaminophen 325 MG Tab PO ONE (03:51)
[2022-08-22 03:57] LABS: CORONAVIRUS COVID-19 NAA NEGATIVE (NEGATIVE); INFLUENZA A NAA NEGATIVE (NEGATIVE); INFLUENZA B NAA NEGATIVE (NEGATIVE); RESPIRATORY SYNCYTIAL VIR NAA NEGATIVE (NEGATIVE)
[2022-08-22] MEDS ORDERED: Sulfamethoxazole/Trimethoprim 800-160 MG Tab PO ONE (05:11)
== END 2022-08-22 06:26 | disposition home or self-care (01) ==
LOC: MW.ED 02:15
DX: R50.9 Fever, unspecified (principal); E78.00 Pure hypercholesterolemia, unspecified; I10 Essential (primary) hypertension; K21.9 Gastro-esophageal reflux disease without esophagitis; J45.909 Unspecified asthma, uncomplicated; M19.90 Unspecified osteoarthritis, unspecified site; E11.9 Type 2 diabetes mellitus without complications; Z91.013 Allergy to seafood; Z91.040 Latex allergy status; Z88.0 Allergy status to penicillin; Z79.899 Other long term (current) drug therapy; Z79.4 Long term (current) use of insulin; Z20.822 Contact with and (suspected) exposure to COVID-19
CPT/HCPCS: 0241U; 36415; 70450; 71045; 80053; 80307; 81001; 83605; 84484; 85025; 87040; 87077; 87186; 93005; 96361; 96374; 96375; 99285; A9270; J1885; J2060; J7030

== ENCOUNTER 2022-08-22 17:16 | Inpatient (IN) | payer SELFPAY ==
[2022-08-22] MEDS ORDERED: Sodium Chloride 0.9% 1,000 ML IV ONE (19:28)
[2022-08-22] MEDS ORDERED: Cefepime 2 GM in Premix Bag 1 BAG IV ONE (19:29)
[2022-08-22] MEDS ORDERED: Iopamidol 755 MG/ML 500 ML Multipack Bottle IVPUSH ONE (20:12)
[2022-08-22 20:33] LABS: CARBON DIOXIDE,CO2 21.1 mmol/L (21.0-32.0); POTASSIUM,K 3.4 mmol/L (3.5-5.1)
[2022-08-23] MEDS ORDERED: Albuterol/Ipratropium 3.0-0.5 MG/3 ML Neb Soln INH PRN (00:56)
[2022-08-23] MEDS ORDERED: Glucagon,Human Recombinant 1 MG Vial IM PRN (00:56)
[2022-08-23] MEDS ORDERED: 50% Dextrose in Water 50 ML Syringe IVPUSH PRN (00:56)
[2022-08-23 06:37] LABS: CARBON DIOXIDE,CO2 20.6 mmol/L (21.0-32.0); POTASSIUM,K 3.4 mmol/L (3.5-5.1)
[2022-08-23] MEDS: Enoxaparin 40 MG/0.4 ML Syringe SUBCUT SCH (06:41)
[2022-08-23] MEDS: Insulin Aspart 100 Units/ML 3 ML Pen SUBCUT SCH ×3 (07:59→16:36)
[2022-08-23] MEDS: atorvaSTATin 20 MG Tab PO SCH (08:00)
[2022-08-23] MEDS: Lisinopril/Hydrochlorothiazide 10-12.5 MG Tab PO SCH (08:00)
[2022-08-23] MEDS: Cefepime 2 GM in Premix Bag 1 BAG IV SCH ×2 (08:00→20:06)
[2022-08-23] MEDS ORDERED: Ondansetron 4 MG/2 ML SDV IVPUSH PRN (08:28)
[2022-08-23] MEDS ORDERED: Potassium Chloride 20 MEQ Tab.ER PO ONE (08:29)
[2022-08-23] MEDS: Polyethylene Glycol 3350 Powder 17 GM Packet PO PRN (09:58)
[2022-08-23] MEDS: Pantoprazole 40 MG in Sodium Chloride 0.9% 10 ML IVPUSH SCH (09:58)
[2022-08-23] MEDS: Acetaminophen 325 MG Tab PO PRN (10:06)
[2022-08-23] MEDS: Insulin Glargine,Hum.Rec.Anlog 100 UNIT/ML 3 ML Pen SUBCUT SCH (20:08)
[2022-08-24] MEDS: Enoxaparin 40 MG/0.4 ML Syringe SUBCUT SCH (06:24)
[2022-08-24] MEDS: Pantoprazole 40 MG in Sodium Chloride 0.9% 10 ML IVPUSH SCH ×2 (06:27→08:20)
[2022-08-24 07:10] LABS: CARBON DIOXIDE,CO2 22.3 mmol/L (21.0-32.0); POTASSIUM,K 3.8 mmol/L (3.5-5.1)
[2022-08-24] MEDS: Insulin Aspart 100 Units/ML 3 ML Pen SUBCUT SCH ×3 (08:19→16:23)
[2022-08-24] MEDS: atorvaSTATin 20 MG Tab PO SCH (08:20)
[2022-08-24] MEDS: Lisinopril/Hydrochlorothiazide 10-12.5 MG Tab PO SCH (08:20)
[2022-08-24] MEDS: Cefepime 2 GM in Premix Bag 1 BAG IV SCH ×2 (08:20→20:47)
[2022-08-24] MEDS: Acetaminophen 325 MG Tab PO PRN ×2 (08:28→20:46)
[2022-08-24] MEDS: Insulin Glargine,Hum.Rec.Anlog 100 UNIT/ML 3 ML Pen SUBCUT SCH (20:50)
[2022-08-25] MEDS: Enoxaparin 40 MG/0.4 ML Syringe SUBCUT SCH (06:38)
[2022-08-25] MEDS: Pantoprazole 40 MG in Sodium Chloride 0.9% 10 ML IVPUSH SCH (06:38)
[2022-08-25 07:17] LABS: CARBON DIOXIDE,CO2 23.6 mmol/L (21.0-32.0); POTASSIUM,K 3.9 mmol/L (3.5-5.1)
[2022-08-25] MEDS: Insulin Aspart 100 Units/ML 3 ML Pen SUBCUT SCH ×3 (07:51→16:50)
[2022-08-25] MEDS: Lisinopril/Hydrochlorothiazide 10-12.5 MG Tab PO SCH (08:30)
[2022-08-25] MEDS: atorvaSTATin 20 MG Tab PO SCH (08:30)
[2022-08-25] MEDS: Cefepime 2 GM in Premix Bag 1 BAG IV SCH ×2 (08:31→20:32)
[2022-08-25] MEDS: Polyethylene Glycol 3350 Powder 17 GM Packet PO PRN (08:36)
[2022-08-25] MEDS: Acetaminophen 325 MG Tab PO PRN (08:45)
[2022-08-25] MEDS: Benzonatate 100 MG Cap PO PRN (19:08)
[2022-08-25] MEDS: Insulin Glargine,Hum.Rec.Anlog 100 UNIT/ML 3 ML Pen SUBCUT SCH (20:30)
[2022-08-26] MEDS: Acetaminophen 325 MG Tab PO PRN (01:48)
[2022-08-26] MEDS: Enoxaparin 40 MG/0.4 ML Syringe SUBCUT SCH (06:31)
[2022-08-26] MEDS: Pantoprazole 40 MG in Sodium Chloride 0.9% 10 ML IVPUSH SCH (06:31)
[2022-08-26] MEDS ORDERED: Levofloxacin 750 MG Tab PO SCH ×2 (07:00→07:15)
[2022-08-26] MEDS: Insulin Aspart 100 Units/ML 3 ML Pen SUBCUT SCH (08:11)
[2022-08-26 08:20] LABS: CARBON DIOXIDE,CO2 21.6 mmol/L (21.0-32.0); POTASSIUM,K 3.8 mmol/L (3.5-5.1)
[2022-08-26] MEDS: Polyethylene Glycol 3350 Powder 17 GM Packet PO PRN (09:29)
[2022-08-26] MEDS: Benzonatate 100 MG Cap PO PRN (09:29)
[2022-08-26] MEDS: atorvaSTATin 20 MG Tab PO SCH (09:29)
[2022-08-26] MEDS: Lisinopril/Hydrochlorothiazide 10-12.5 MG Tab PO SCH (09:29)
== END 2022-08-26 12:10 | disposition home or self-care (01) | DRG 690 ==
LOC: MW.ED 17:16 → MW.MS 19:48
PROVIDERS: ADMIT Internal Medicine; ATTEND Internal Medicine
DX: N12 Tubulo-interstitial nephritis, not specified as acute or chronic (principal); R78.81 Bacteremia; I10 Essential (primary) hypertension; F41.9 Anxiety disorder, unspecified; F32.A Depression, unspecified; E78.5 Hyperlipidemia, unspecified; E66.9 Obesity, unspecified; K21.9 Gastro-esophageal reflux disease without esophagitis; E11.9 Type 2 diabetes mellitus without complications; Z68.35 Body mass index [BMI] 35.0-35.9, adult; Z79.899 Other long term (current) drug therapy; Z79.4 Long term (current) use of insulin; Z88.0 Allergy status to penicillin; Z91.040 Latex allergy status; Z87.898 Personal history of other specified conditions; Z91.02 Food additives allergy status
CPT/HCPCS: 36415; 74177; 74177-26; 80048; 80053; 81001; 82947; 83605; 85025; 87040; 87086; 99285; A9270-GY; C9113; J0692; J1650; J1815-GY; J2405; J3490; J7030; Q9967

== ENCOUNTER 2022-10-15 11:48 | Emergency (ER) | payer SELFPAY ==
[2022-10-15] MEDS ORDERED: Acyclovir 200 MG Cap PO ONE (13:33)
[2022-10-15] MEDS ORDERED: Ketorolac 30 MG/ML SDV IVPUSH ONE (13:34)
[2022-10-15] MEDS ORDERED: methylPREDNISolone Sodium Succinate 125 MG/2 ML SDV IVPUSH ONE (13:34)
[2022-10-15] MEDS ORDERED: Doxycycline 100 MG Cap PO ONE (13:44)
== END 2022-10-15 14:26 | disposition home or self-care (01) ==
LOC: MW.ED 11:48
DX: G51.0 Bell's palsy (principal); I10 Essential (primary) hypertension; E78.00 Pure hypercholesterolemia, unspecified; E11.9 Type 2 diabetes mellitus without complications; Z79.899 Other long term (current) drug therapy; Z91.013 Allergy to seafood; Z88.0 Allergy status to penicillin; Z91.040 Latex allergy status
CPT/HCPCS: 82947; 93005; 96374; 96375; 99284; A9270; J1885; J2930; 93010

== ENCOUNTER 2023-01-01 22:30 | Emergency (ER) | payer SELFPAY ==
[2023-01-01] MEDS: Sodium Chloride 0.9% 1,000 ML IV ONE (22:52)
[2023-01-01] MEDS: Alum Hydro/Mag Hydro/Simeth XS 15 ML, Lidocaine 2% 5 ML PO ONE ×2 (22:53)
[2023-01-01] MEDS: Pantoprazole 40 MG in Sodium Chloride 0.9% 10 ML IVPUSH ONE (22:53)
[2023-01-01 23:15] LABS: CARBON DIOXIDE,CO2 24.9 mmol/L (21.0-32.0); POTASSIUM,K 3.7 mmol/L (3.5-5.1)
[2023-01-01] MEDS: Morphine 4 MG/ML Syringe IVPUSH ONE (23:46)
[2023-01-02] MEDS: Morphine 4 MG/ML Syringe IVPUSH ONE (00:04)
[2023-01-02] MEDS: Iopamidol 755 MG/ML 500 ML Multipack Bottle IVPUSH ONE (00:12)
[2023-01-02] MEDS: Acetaminophen 325 MG Tab PO ONE (01:54)
[2023-01-02] MEDS: Ibuprofen 400 MG Tab PO ONE (01:54)
[2023-01-02] MEDS: Lidocaine 5% 700 MG Patch TOP STA (01:54)
== END 2023-01-02 02:21 | disposition home or self-care (01) ==
LOC: MW.ED 22:30
DX: R10.11 Right upper quadrant pain (principal); R07.81 Pleurodynia; E78.00 Pure hypercholesterolemia, unspecified; J45.909 Unspecified asthma, uncomplicated; E11.22 Type 2 diabetes mellitus with diabetic chronic kidney disease; I12.9 Hypertensive chronic kidney disease with stage 1 through stage 4 chronic kidney disease, or unspecified chronic kidney disease; N18.9 Chronic kidney disease, unspecified; Z79.4 Long term (current) use of insulin; Z91.013 Allergy to seafood; Z88.0 Allergy status to penicillin; Z79.899 Other long term (current) drug therapy
CPT/HCPCS: 36415; 74177; 74177-26; 80053; 81001; 84484; 85025; 93005; 93010; 96361; 96374; 96375; 99284; 99285-25; A9270-GY; C9113; J2270; J3490; J7030; Q9967

== ENCOUNTER 2023-07-16 23:03 | Emergency (ER) | payer SELFPAY ==
[2023-07-16] MEDS ORDERED: Labetalol 100 MG/20 ML MDV IVPUSH ONE (23:34)
[2023-07-17 00:20] LABS: BASOPHILS ABSOLUTE AUTO 0.06 K/uL (0.00-0.20); BASOPHILS PERCENT AUTO 0.8 % (0.0-1.0); EOSINOPHILS ABSOLUTE AUTO 0.14 K/uL (0.00-0.45); EOSINOPHILS PERCENT AUTO 1.8 % (0.0-6.0); HEMATOCRIT 41.2 % (37.0-47.0); HEMOGLOBIN 14.2 g/dL (12.0-16.0); IMMATURE GRAN ABSOLUTE AUTO 0.01 K/uL (0.00-0.05); IMMATURE GRAN PERCENT AUTO 0.1 % (0.0-0.4); LYMPHOCYTES ABSOLUTE AUTO 2.57 K/uL (1.00-4.80); LYMPHOCYTES PERCENT AUTO 33.6 % (24.0-44.0); MEAN CORPUSCULAR HEMOGLOBIN 28.6 pg (28.0-32.0); MEAN CORPUSCULAR HGB CONC 34.5 g/dL (32.0-36.0); MEAN CORPUSCULAR VOLUME 83.1 fL (83.0-99.0); MEAN PLATELET VOLUME 10.6 fL (9.4-12.3); MONOCYTES ABSOLUTE AUTO 0.58 K/uL (0.00-0.80); MONOCYTES PERCENT AUTO 7.6 % (0.0-8.0); NEUTROPHILS PERCENT AUTO 56.1 % (41.0-71.0); PLATELET COUNT,PLT 254 K/uL (150-400); RED BLOOD CELL COUNT 4.96 M/uL (4.10-5.30); WHITE BLOOD CELL COUNT,WBC 7.66 K/uL (3.9-11.3)
[2023-07-17 00:27] LABS: A/G RATIO 0.8 (0.9-1.6); ALBUMIN 3.6 g/dL (3.4-5.0); BILIRUBIN TOTAL 0.4 mg/dL (0.2-1.0); CARBON DIOXIDE,CO2 26.5 mmol/L (21.0-32.0); CREATININE 1.5 mg/dL (0.6-1.0); EST CRCL DRUG DOSING (CG) 29.57 mL/min; POTASSIUM,K 4.2 mmol/L (3.5-5.1); PROTEIN TOTAL,TP 8.3 g/dL (6.4-8.2)
== END 2023-07-17 00:50 | disposition home or self-care (01) ==
LOC: MW.ED 23:03
DX: I16.0 Hypertensive urgency (principal); I10 Essential (primary) hypertension; E11.9 Type 2 diabetes mellitus without complications; E78.00 Pure hypercholesterolemia, unspecified; J45.909 Unspecified asthma, uncomplicated; K21.9 Gastro-esophageal reflux disease without esophagitis; Z79.4 Long term (current) use of insulin; Z88.0 Allergy status to penicillin; Z91.040 Latex allergy status; Z91.048 Other nonmedicinal substance allergy status; Z91.013 Allergy to seafood
CPT/HCPCS: 36415; 80053; 84484; 85025; 93005; 93010; 99284; J3490

== ENCOUNTER 2023-12-20 18:50 | Emergency (ER) | payer SELFPAY ==
[2023-12-20] MEDS: Sodium Chloride 0.9% 10 ML Syringe FLUSH PRN (20:02)
[2023-12-20] MEDS: Ketorolac 30 MG/ML SDV IVPUSH ONE (20:03)
[2023-12-20] MEDS: Sodium Chloride 0.9% 2.5 ML Syringe FLUSH PRN (20:03)
[2023-12-20] MEDS: Diazepam 5 MG Tab PO ONE (20:03)
[2023-12-20] MEDS: Ketorolac 30 MG/ML SDV IM ONE (20:06)
[2023-12-20 20:09] LABS: BASOPHILS ABSOLUTE AUTO 0.08 K/uL (0.00-0.20); BASOPHILS PERCENT AUTO 1.1 % (0.0-1.0); EOSINOPHILS ABSOLUTE AUTO 0.23 K/uL (0.00-0.45); EOSINOPHILS PERCENT AUTO 3.1 % (0.0-6.0); HEMATOCRIT 40.9 % (37.0-47.0); HEMOGLOBIN 13.8 g/dL (12.0-16.0); IMMATURE GRAN ABSOLUTE AUTO 0.01 K/uL (0.00-0.05); IMMATURE GRAN PERCENT AUTO 0.1 % (0.0-0.4); LYMPHOCYTES ABSOLUTE AUTO 2.43 K/uL (1.00-4.80); LYMPHOCYTES PERCENT AUTO 33.1 % (24.0-44.0); MEAN CORPUSCULAR HEMOGLOBIN 28.3 pg (28.0-32.0); MEAN CORPUSCULAR HGB CONC 33.7 g/dL (32.0-36.0); MEAN CORPUSCULAR VOLUME 83.8 fL (83.0-99.0); MEAN PLATELET VOLUME 10.1 fL (9.4-12.3); MONOCYTES ABSOLUTE AUTO 0.54 K/uL (0.00-0.80); MONOCYTES PERCENT AUTO 7.3 % (0.0-8.0); NEUTROPHILS ABSOLUTE AUTO 4.06 K/uL (1.80-7.70); NEUTROPHILS PERCENT AUTO 55.3 % (41.0-71.0); PLATELET COUNT,PLT 265 K/uL (150-400); RED BLOOD CELL COUNT 4.88 M/uL (4.10-5.30); WHITE BLOOD CELL COUNT,WBC 7.35 K/uL (3.9-11.3)
[2023-12-20 20:36] LABS: ALBUMIN 3.3 g/dL (3.4-5.0); BILIRUBIN TOTAL 0.2 mg/dL (0.2-1.0); CALCIUM 9.3 mg/dL (8.5-10.1); CARBON DIOXIDE,CO2 25.5 mmol/L (21.0-32.0); CREATININE 1.2 mg/dL (0.6-1.0); EST CRCL DRUG DOSING (CG) 49.87 mL/min; LACTIC ACID 0.7 mmol/L (0.4-2.0); POTASSIUM,K 4.2 mmol/L (3.5-5.1); PROTEIN TOTAL,TP 8.4 g/dL (6.4-8.2)
[2023-12-20 20:38] LABS: A/G RATIO 0.7 (0.9-1.6)
[2023-12-20 20:46] LABS: APPEARANCE,URINE CLEAR; BILIRUBIN,URINE NEGATIVE (NEGATIVE); COLOR,URINE YELLOW; GLUCOSE,URINE NEGATIVE (NEGATIVE); KETONES,URINE NEGATIVE (NEGATIVE); LEUKOCYTE ESTERASE,URINE SMALL (NEGATIVE); NITRITE,URINE NEGATIVE (NEGATIVE); OCCULT BLOOD,URINE NEGATIVE (NEGATIVE); PROTEIN,URINE NEGATIVE (NEGATIVE); UROBILINOGEN,URINE 0.2 EU/dL (<2.0)
[2023-12-20 21:06] LABS: BACTERIA,URINE FEW (NEGATIVE); EPITHELIAL CELLS,URINE FEW (NONE-FEW); MUCUS,URINE LIGHT (NONE-MOD); RBC,URINE 0-2 (0-2/HPF)
== END 2023-12-20 21:24 | disposition home or self-care (01) ==
LOC: MW.ED 18:50
DX: M54.50 Low back pain, unspecified (principal); J45.909 Unspecified asthma, uncomplicated; E11.9 Type 2 diabetes mellitus without complications; E78.00 Pure hypercholesterolemia, unspecified; I10 Essential (primary) hypertension; Z79.4 Long term (current) use of insulin; Z88.0 Allergy status to penicillin; Z91.048 Other nonmedicinal substance allergy status; Z91.013 Allergy to seafood; Z91.040 Latex allergy status; Z79.899 Other long term (current) drug therapy; Z75.8 Other problems related to medical facilities and other health care
CPT/HCPCS: 36415; 71046; 80053; 81001; 83605; 83690; 84484; 85025; 93005; 96374; 99284; A9270; J1885; J3490; 93010

== ENCOUNTER 2025-06-14 11:27 | Emergency (ER) | payer SELFPAY ==
[2025-06-14] MEDS ORDERED: Sodium Chloride 0.9% 10 ML Syringe FLUSH PRN (11:38)
[2025-06-14] MEDS ORDERED: Sodium Chloride 0.9% 2.5 ML Syringe FLUSH PRN (11:38)
[2025-06-14] MEDS: Ketorolac 30 MG/ML SDV IVPUSH ONE (11:52)
[2025-06-14] MEDS: Ondansetron 4 MG/2 ML SDV IVPUSH ONE (11:52)
[2025-06-14 11:59] LABS: BASOPHILS ABSOLUTE AUTO 0.07 K/uL (0.00-0.20); BASOPHILS PERCENT AUTO 0.9 % (0.0-1.0); EOSINOPHILS ABSOLUTE AUTO 0.35 K/uL (0.00-0.45); EOSINOPHILS PERCENT AUTO 4.3 % (0.0-6.0); IMMATURE GRAN ABSOLUTE AUTO 0.02 K/uL (0.00-0.05); IMMATURE GRAN PERCENT AUTO 0.2 % (0.0-0.4); LYMPHOCYTES ABSOLUTE AUTO 2.01 K/uL (1.00-4.80); LYMPHOCYTES PERCENT AUTO 24.6 % (24.0-44.0); MEAN PLATELET VOLUME 10.4 fL (9.4-12.3); MONOCYTES ABSOLUTE AUTO 0.66 K/uL (0.00-0.80); MONOCYTES PERCENT AUTO 8.1 % (0.0-8.0); NEUTROPHILS ABSOLUTE AUTO 5.05 K/uL (1.80-7.70); NEUTROPHILS PERCENT AUTO 61.9 % (41.0-71.0); NRBC ABSOLUTE 0.00 K/uL (0.00-0.02); NRBC PERCENT 0.0 /100WBC (0.0-0.2); PLATELET COUNT,PLT 216 K/uL (150-400); RED BLOOD CELL COUNT 4.99 M/uL (4.10-5.30); WHITE BLOOD CELL COUNT,WBC 8.16 K/uL (3.9-11.3)
[2025-06-14 12:11] LABS: INR 1.0 (0.86-1.11)
[2025-06-14 12:34] LABS: A/G RATIO 0.9 (0.9-1.6); ALANINE AMINOTRANSFERASE,ALT 13.0 IU/L (14-63); ASPARTATE AMNIOTRANSFERASE,AST 19.0 IU/L (15-37); BILIRUBIN TOTAL 0.5 mg/dL (0.2-1.0); BLOOD UREA NITROGEN,BUN 20.0 mg/dL (7.0-18.0); CARBON DIOXIDE,CO2 23.6 mmol/L (21.0-32.0); CHLORIDE,CL 105.0 mmol/L (98-107); CREATININE 1.3 mg/dL (0.6-1.0); EST CRCL DRUG DOSING (CG) 33.21 mL/min; GLUCOSE RANDOM 177.0 mg/dL (74-106); POTASSIUM,K 3.3 mmol/L (3.5-5.1); PROTEIN TOTAL,TP 8.0 g/dL (6.4-8.2); SODIUM,NA 141.0 mmol/L (136-145)
[2025-06-14 12:35] LABS: ESTIMATED GFR 45.0 mL/min (>60)
[2025-06-14] MEDS: Propofol 200 MG/20 ML SDV IVPUSH PRN (12:35)
[2025-06-14] MEDS: Acetaminophen/oxyCODONE 325-5 MG Tab PO ONE (14:15)
== END 2025-06-14 14:37 | disposition home or self-care (01) ==
LOC: MW.ED 11:27
DX: S42.291A Other displaced fracture of upper end of right humerus, initial encounter for closed fracture (principal); M54.2 Cervicalgia; I10 Essential (primary) hypertension; E78.00 Pure hypercholesterolemia, unspecified; J45.909 Unspecified asthma, uncomplicated; E11.9 Type 2 diabetes mellitus without complications; Z88.0 Allergy status to penicillin; Z91.040 Latex allergy status; Z91.013 Allergy to seafood; Z79.899 Other long term (current) drug therapy; Z79.4 Long term (current) use of insulin; W18.30XA Fall on same level, unspecified, initial encounter
CPT/HCPCS: 23650; 36415; 71045; 72125; 73030; 73200; 80053; 83036; 83880; 85025; 85610; 96361; 96374; 96375; 99284; A9270; J1885; J2405; J2704; J7030; 23655